=== PATIENT | female | born 1940 | race Caucasian/White ===

== ENCOUNTER → 2018-05-28 09:11 | Outpatient (CLI) | payer MEDICARE, OTHER, SELFPAY ==
[2018-05-28 09:45] LABS: Hemoglobin A1C% w Est Avg Glu 6.2 % (4.0-6.0)
[2018-05-28 09:54] LABS: Alanine Aminotransferase 29 IU/L (9-52); Albumin 4.7 g/dL (3.5-5.0); Albumin Globulin Ratio 1.6 (1.0-2.8); Alkaline Phosphatase 63 U/L (38-126); Aspartate Aminotransferase 25 IU/L (14-36); BUN Creatinine Ratio 29.1 (6-22); Bilirubin Total 0.5 mg/dL (0.2-1.3); Blood Urea Nitrogen 32 mg/dL (7-17); Calcium 10.1 mg/dL (8.4-10.2); Carbon Dioxide 31 mmol/L (22-32); Chloride 102 mmol/L (98-107); Estimated Glomerular Filt Rate 48.2 mL/min (>60); Globulin 2.9 g/dL (1.7-4.1); Glucose 110 mg/dL (80-110); HDL Cholesterol 79 mg/dL (40-60); HEMOLYSIS < 15 (0-50); Potassium 4.5 mmol/L (3.4-5.1); Sodium 142 mmol/L (137-145); Total Protein 7.6 g/dL (6.3-8.2); Triglycerides 118 mg/dL (35-150)
[2018-05-28 10:00] LABS: Cholesterol 324 mg/dL (140-199); LDL Cholesterol Calculated 221 mg/dL (<100)
[2018-05-28 10:21] LABS: Add Manual Diff / Slide Review NO; Basophils Percent Auto 1.1 % (0-2); Eosinophils Percent Auto 2.9 % (2-4); Hematocrit 38.4 % (36-46); Hemoglobin 13.1 g/dL (12.0-16.0); Lymphocytes Percent Auto 37.5 % (25-40); Mean Corpuscular HGB Conc 34.1 % (30-36); Mean Corpuscular Volume 91.1 fL (80-100); Monocytes Percent Auto 6.8 % (3-14); Neutrophils Absolute Auto 3400 /uL (3000-5900); Neutrophils Percent Auto 51.7 % (50-75); Platelet Count 286 X10^3/uL (150-400); Red Blood Cell Count 4.21 X10^6/uL (4.0-5.2); Red Cell Distribution Width 14.5 % (11.6-14.8); White Blood Cell Count 6.6 X10^3/uL (4.5-11.0)
== END ==
PROVIDERS: PCP Family Medicine; Visit Provider Registered Nurse
DX: Z00.00 Encounter for general adult medical examination without abnormal findings (principal); I10 Essential (primary) hypertension; E11.9 Type 2 diabetes mellitus without complications
CPT/HCPCS: 36415; 80053; 80061; 83036; 85025

== ENCOUNTER → 2018-09-01 10:07 | Outpatient (CLI) | payer MEDICARE, OTHER, SELFPAY ==
[2018-09-01 11:21] LABS: Uric Acid 8.1 mg/dL (2.5-6.2)
== END ==
PROVIDERS: Registered Nurse; PCP Family Medicine; Visit Provider Family Medicine
DX: M79.674 Pain in right toe(s) (principal); R30.0 Dysuria
CPT/HCPCS: 36415; 84550

== ENCOUNTER → 2018-12-09 08:18 | Outpatient (CLI) | payer MEDICARE, OTHER, SELFPAY ==
--- NOTE | 2018-12-09 08:20 | DI.MG.S_ITS ---
BILATERAL DIGITAL DIAGNOSTIC MAMMOGRAM 3D/2D: 12/09/2018 CLINICAL: Right breast mass. Comparison is made to exams dated: 08/10/2014 mammogram, 05/29/2011 mammogram, and 08/10/2009 mammogram - [facility]. The tissue of both breasts is predominantly fatty. There is skin thickening in the region of the previous lump in the right breast at 11 o'clock in the retroareolar region. No mammographic finding corresponds to this abnormality. Incidentally noted is a stable benign 9 mm oval mass with a circumscribed margin in the right breast at 12 o'clock anterior depth. This has been present, stable size and morphology since the most remote prior study and is benign. There are a diffuse large rodlike calcifications in the left breast anterior depth throughout the left breast. No other significant masses or calcifications are seen in either breast. IMPRESSION: INCOMPLETE: NEEDS ADDITIONAL IMAGING EVALUATION The skin thickening in the right breast at 11 o'clock in the retroareolar region needs additional evaluation with ultrasound which was performed following this exam. The ovoid right breast mass and calcifications in the left breast are benign. This exam was interpreted at Station ID: [id number]. NOTE: For mammograms, a report in lay terms will be sent to the patient. Approximately 15% of breast malignancies will not be visualized mammographically. In the management of a palpable breast mass, a negative mammogram must not discourage biopsy of a clinically suspicious lesion. Electronically Signed By: Marilia dan/:12/09/2018 16:44:20 ACR BI-RADS Category 0: Incomplete [id number]
--- NOTE | 2018-12-09 08:20 | DI.US.S_ITS ---
LIMITED ULTRASOUND OF RIGHT BREAST: 12/09/2018 CLINICAL: Previous lump with residual skin thickening. Comparison is made to exams dated: 12/09/2018 mammogram, 08/10/2014 mammogram, and 05/29/2011 mammogram - [facility]. Ultrasound of the right breast retroareolar region was performed. There is 3.3 cm x 2.6 cm x 0.5 cm smooth area of skin thickening without vascularity lateral to the nipple. No suspicious shadowing or underlying solid lesion. IMPRESSION: PROBABLY BENIGN Probably benign sequela of superficial infection/folliculitis. Follow up ultrasound in 3 months recommended to assess for resolution. Return to screening mammography recommended. This exam was interpreted at Station ID: [id number]. Electronically Signed By: Marilia dan/:12/09/2018 16:52:06 letter sent: Followup Recommended Ultrasound BI-RADS: 3 Probably benign
--- NOTE | 2018-12-09 08:20 | DI.ECHO.S_ITS ---
[facility] +---------+ : : [address] : [place] : : : : [id number] : : : : Phone: [phone]---------+ Echocardiogram Report + + :Name: HERIBERTO KATZ Study Date: 12/09/2018 Height: 60 in : :[facility] Exam Location: [facility] Weight: 140 lb : : Gender: Female BSA: 1.6 m2 : :: 1940 Age: 78 yrs BP: 120/70 mmHg: :Reason For Study: Murmur : :Ordering Physician: Dr. Ramirez : :Tang Performed By: Ginny Page : + + Interpretation Summary Left ventricular systolic function is normal without focal wall motion abnormalities with the ejection fraction visually estimated to be 65-70%. Left ventricular wall thickness is borderline increased but diastolic parameters suggest probable normal left ventricular diastolic function and normal filling pressures. The right ventricle is normal in size and function. The right ventricular systolic pressure is estimated to be at least 33 mmHg based on an estimated right atrial pressure of 8 mm Hg. Both atria are normal in size. There is mild tricuspid regurgitation but no other significant valvular heart disease. The ascending aorta is mildly enlarged. The patient was in normal sinus rhythm during the exam, generally 60-85 bpm but with occasional abrupt bradycardia to the low 40s, suggestive of possible sick sinus syndrome. Clinical correlation is recommended. Procedure: A two-dimensional transthoracic echocardiogram with color flow and Doppler was performed. The study quality was technically adequate. There is no prior echocardiogram noted for this patient. The patient was in normal sinus rhythm during the exam. Generally 60-85 bpm but with occasional abrupt bradycardia to the low 40s. Clinical correlation is recommended. Left Ventricle: The left ventricle is normal in size. Left ventricular wall thickness is borderline increased. Proximal septal thickening is noted. Left ventricular systolic function is normal without focal wall motion abnormalities. The ejection fraction is estimated to be 65-70%. Diastolic parameters suggest probable normal left ventricular diastolic function and normal filling pressures. Right Ventricle: The right ventricle is normal in size and function. Atria: Both atria are normal in size. There is no Doppler evidence for an interatrial shunt. Mitral Valve: There is mild mitral annular calcification. There is trace mitral regurgitation. Aortic Valve: The aortic valve is trileaflet. The aortic valve opens well. No aortic regurgitation is present. Tricuspid Valve: The tricuspid valve is normal in structure and function. There is mild tricuspid regurgitation. The right ventricular systolic pressure is estimated to be at least 33 mmHg based on an estimated right atrial pressure of 8 mm Hg. Pulmonic Valve: The pulmonic valve is not well visualized. There is trace pulmonic regurgitation. There is no other significant valvular heart disease. Great Vessels: The aortic root is normal size. The ascending aorta is mildly enlarged. The pulmonary artery is not well visualized, but is probably normal size. The IVC is dilated (diameter is greater than 2.1 cm) yet it collapses greater than 50% with a sniff. This suggests a right atrial pressure of 8 mm Hg. Pericardium/ Pleura There is a trivial pericardial effusion noted. There is no pleural effusion. MMode/2D Measurements & Calculations LVIDd: 4.2 cm LVOT diam: 1.7 cm LVIDs: 2.4 cm Ao root diam: 2.6 cm FS: 43.9 % asc Aorta Diam: 3.5 cm EPSS: 0.15 cm IVSd: 1.1 cm LVPWd: 0.78 cm LV heredia. diameter/BSA (cm/m^2): 2.6 LV sys. diameter/BSA (cm/m^2): 1.5 LA A2 area: 17.3 cm2 RA long axis: 4.3 cm LA A4 area: 15.8 cm2 RA area: 13.3 cm2 LA length (vol): 4.9 cm RA vol: 34.6 ml LA vol: 47.5 ml RA : 21.5 ml/m2 LA vol index: 29.6 ml/m2 IVC diam: 2.5 cm RVD1 (basal): 3.7 cm Doppler Measurements & Calculations Ao V2 max: 127.8 cm/sec LVOT Max Braden: 101.5 cm/sec Ao V2 mean: 92.3 cm/sec LV V1 max P.1 mmHg Ao max P.5 mmHg LV V1 VTI: 21.0 cm Ao mean P.8 mmHg EDWIN(I,D): 1.7 cm2 Ao V2 VTI: 28.7 cm EDWIN(V,D): 1.9 cm2 sev ratio: 0.73 EDWIN indexed to BSA (cm^2/m^2): 1.1 MV E max braden: 60.9 cm/sec TR max braden: 244.3 cm/sec MV A max braden: 95.2 cm/sec TR max P.0 mmHg MV E/A: 0.64 PA V2 max: 85.2 cm/sec Med Peak E' Braden: 3.8 cm/sec PA V2 mean: 59.3 cm/sec E/E' med: 16.1 PA mean P.6 mmHg Lat Peak E' Braden: 4.0 cm/sec PA Accel Time: 0.10 sec E/E' lat: 15.2 E/e' average: 15.7 MV dec time: 0.29 sec MV P1/2t: 85.3 msec MV P1/2t max braden: 62.1 cm/sec SV(LVOT): 49.9 ml MVA(P1/2t): 2.6 cm2 Reading Physician:JACQUI
== END ==
PROVIDERS: PCP Family Medicine; Visit Provider Family Medicine
DX: I07.1 Rheumatic tricuspid insufficiency (principal); R01.1 Cardiac murmur, unspecified; I77.89 Other specified disorders of arteries and arterioles; R92.8 Other abnormal and inconclusive findings on diagnostic imaging of breast; R92.1 Mammographic calcification found on diagnostic imaging of breast; N63.10 Unspecified lump in the right breast, unspecified quadrant
CPT/HCPCS: 76642; 77066; 93306; G0279

== ENCOUNTER → 2019-01-02 06:32 | Outpatient (CLI) | payer MEDICARE, OTHER, SELFPAY ==
[2019-01-02 10:11] LABS: Cholesterol 286 mg/dL (140-199); HDL Cholesterol 83 mg/dL (40-60); LDL Cholesterol Calculated 179 mg/dL (<100); Triglycerides 118 mg/dL (35-150)
== END ==
PROVIDERS: PCP Family Medicine; Visit Provider Family Medicine
DX: E78.5 Hyperlipidemia, unspecified (principal); I10 Essential (primary) hypertension
CPT/HCPCS: 36415; 80061

== ENCOUNTER → 2019-03-24 09:54 | Outpatient (CLI) | payer MEDICARE, OTHER, SELFPAY ==
--- NOTE | 2019-03-24 09:56 | DI.US.S_ITS ---
LIMITED ULTRASOUND OF RIGHT BREAST: 03/24/2019 CLINICAL: 3 month follow-up skin thickening. Comparison is made to exams dated: 12/09/2018 ultrasound, 12/09/2018 mammogram, 08/10/2014 mammogram, 05/29/2011 mammogram, and 08/10/2009 mammogram - [facility]. Real-time ultrasound of the right breast 9 o'clock, and retroareolar regions was performed on the area of interest. The skin thickening right breast at 9 o'clock is no longer seen. IMPRESSION: NEGATIVE There is no sonographic evidence of malignancy. Interval resolution of right 9:00 localized skin thickening. Return to annual mammogram screening schedule is recommended. This exam was interpreted at Station ID: [id number]. Electronically Signed By: Lam cruz/:03/24/2019 16:21:13 letter sent: Clinical Evaluation Ultrasound BI-RADS: 1 Negative
== END ==
PROVIDERS: PCP Family Medicine; Visit Provider Family Medicine
DX: R92.8 Other abnormal and inconclusive findings on diagnostic imaging of breast (principal)
CPT/HCPCS: 76642

== ENCOUNTER → 2019-07-03 09:14 | Outpatient (CLI) | payer MEDICARE, OTHER, SELFPAY | PROVIDERS: PCP Family Medicine; Visit Provider Physician Assistant | DX: T14.8XXA Other injury of unspecified body region, initial encounter (principal) | CPT/HCPCS: 87070; 87205 ==

== ENCOUNTER → 2019-09-22 07:20 | Outpatient (CLI) | payer MEDICARE, OTHER, SELFPAY ==
[2019-09-22 08:15] LABS: BUN Creatinine Ratio 30.9 (6-22); Blood Urea Nitrogen 34 mg/dL (7-17)
== END ==
PROVIDERS: PCP Family Medicine; Visit Provider Family Medicine
DX: Z01.812 Encounter for preprocedural laboratory examination (principal)
CPT/HCPCS: 82565; 84520

== ENCOUNTER → 2019-09-22 10:21 | Outpatient (CLI) | payer MEDICARE, OTHER, SELFPAY ==
--- NOTE | 2019-09-22 10:23 | DI.RAD.S_ITS ---
PROCEDURE: XR LUMBAR SPINE 2-3V INDICATIONS: transient nurological defficet with leg weekness TECHNIQUE: 2 views of the lumbar spine were acquired. COMPARISON: [facility], CR, L-SPINE 2-3 VIEWS, 06/16/2013, 12:04. [facility], CR, L-SPINE 2-3 VIEWS, 08/21/2011, 8:58. FINDINGS: Bones: 5 [id number] vertebrae are present. There is grade 1 anterolisthesis at L4-L5. Discectomy at L3-L4 and L4-L5. Laminectomy and posterior fusion at L3-S1. The left lottie-pedicular screws and fusion alisha appear intact. No vertebral body compression fractures. No suspicious bony lesions. There is severe degenerative disc disease at L1-L2 and L2-L3. Soft tissues: Overlying bowel gas pattern is normal. No suspicious soft tissue calcifications. IMPRESSION: 1. Postsurgical changes as described. 2. Severe degenerative disc disease at L1-L2 and L2-L3. Dictated by: Katarina Mascorro M.D. on 09/22/2019 at 17:31 Approved by: Katarina Mascorro M.D. on 09/22/2019 at 17:35
--- NOTE | 2019-09-22 10:29 | DI.CT.S_ITS ---
PROCEDURE: CT HEAD/BRAIN WO/W CON INDICATIONS: transient nurological defficet with leg weekness TECHNIQUE: 4.5 mm thick angled axial sections acquired from the foramen magnum to the vertex both before and after the administration of intravenous contrast, with coronal and sagittal reformats. For radiation dose reduction, the following was used: automated exposure control, adjustment of mA and/or kV according to patient size. COMPARISON: None. FINDINGS: Image quality: Excellent. CSF spaces: Basal cisterns are patent. No extra-axial fluid collections. Ventricles are symmetric in size and shape. Brain: No midline shift. No intracranial bleeds or masses. No abnormal intracranial enhancement. There is mild cerebral volume loss for age. There is mild periventricular white matter chronic small vessel ischemic change. There is intracranial internal carotid artery atherosclerosis. Skull and face: Calvarium and visualized facial bones appear intact, without suspicious lesions. Sinuses: Visualized sinuses and mastoids are clear. IMPRESSION: 1. No acute intracranial abnormalities. 2. Cerebral volume loss and chronic microvascular ischemic changes. Dictated by: Katarina Mascorro M.D. on 09/22/2019 at 11:10 Approved by: Katarina Mascorro M.D. on 09/22/2019 at 11:13
== END ==
PROVIDERS: PCP Family Medicine; Visit Provider Family Medicine
DX: Z01.812 Encounter for preprocedural laboratory examination (principal); R29.818 Other symptoms and signs involving the nervous system; M51.36 Other intervertebral disc degeneration, lumbar region; M47.816 Spondylosis without myelopathy or radiculopathy, lumbar region; Z98.1 Arthrodesis status
CPT/HCPCS: 70470; 72100; 82565; 84520; Q9967

== ENCOUNTER → 2019-10-01 07:10 | Outpatient (CLI) | payer MEDICARE, OTHER, SELFPAY ==
[2019-10-01 08:17] LABS: Add Manual Diff / Slide Review NO; Basophils Absolute Auto 100 /uL (0-100); Basophils Percent Auto 1.2 % (0-2); Eosinophils Absolute Auto 400 /uL (0-450); Eosinophils Percent Auto 6.5 % (2-4); Hematocrit 37.7 % (36-46); Hemoglobin 13.3 g/dL (12.0-16.0); Lymphocytes Absolute Auto 2200 /uL (1100-4500); Lymphocytes Percent Auto 36.1 % (25-40); Mean Corpuscular HGB Conc 35.3 % (30-36); Mean Corpuscular Hemoglobin 32.1 PG (26-34); Mean Corpuscular Volume 91.1 fL (80-100); Monocytes Absolute Auto 500 /uL (0-900); Monocytes Percent Auto 8.5 % (3-14); Neutrophils Absolute Auto 2900 /uL (1500-7000); Neutrophils Percent Auto 47.7 % (50-75); Platelet Count 278 X10^3/uL (150-400); Red Blood Cell Count 4.14 X10^6/uL (4.0-5.2); Red Cell Distribution Width 14.1 % (11.6-14.8)
[2019-10-01 08:25] LABS: Alanine Aminotransferase 18 IU/L (<35); Albumin 4.5 g/dL (3.5-5.0); Albumin Globulin Ratio 1.7 (1.0-2.8); Alkaline Phosphatase 66 U/L (38-126); Aspartate Aminotransferase 21 IU/L (14-36); BUN Creatinine Ratio 27.7 (6-22); Bilirubin Total 0.5 mg/dL (0.2-1.3); Blood Urea Nitrogen 36 mg/dL (7-17); Calcium 9.7 mg/dL (8.4-10.2); Carbon Dioxide 28 mmol/L (22-32); Chloride 100 mmol/L (98-107); Cholesterol 293 mg/dL (140-199); Estimated Glomerular Filt Rate 39.6 mL/min (>60); Globulin 2.7 g/dL (1.7-4.1); Glucose 125 mg/dL (80-110); HDL Cholesterol 56 mg/dL (40-60); HEMOLYSIS < 15 (0-50); Hemoglobin A1C% w Est Avg Glu 5.8 % (4.0-6.0); LDL Cholesterol Calculated 186 mg/dL (<100); Potassium 4.5 mmol/L (3.4-5.1); Sodium 138 mmol/L (137-145); Total Protein 7.2 g/dL (6.3-8.2); Triglycerides 255 mg/dL (35-150)
[2019-10-01 08:51] LABS: TSH w/ Reflex to FT4 4.96 uIU/mL (0.47-4.68)
[2019-10-01 09:10] LABS: Vitamin B12 466 pg/mL (239-931)
[2019-10-01 09:32] LABS: Free T4, Direct Thyroxine 0.86 ng/dL (0.78-2.19)
== END ==
PROVIDERS: PCP Family Medicine; Visit Provider Family Medicine
DX: E78.5 Hyperlipidemia, unspecified (principal); I10 Essential (primary) hypertension; R73.01 Impaired fasting glucose
CPT/HCPCS: 36415; 80053; 80061; 82607; 83036; 84439; 84443; 85025

== ENCOUNTER → 2020-05-04 15:01 | Outpatient (CLI) | payer MEDICARE, OTHER, SELFPAY | PROVIDERS: PCP Family Medicine; Visit Provider Family Medicine | DX: K52.9 Noninfective gastroenteritis and colitis, unspecified (principal) | CPT/HCPCS: 87045; 87177; 87899 ==

== ENCOUNTER → 2020-05-05 07:28 | Outpatient (CLI) | payer MEDICARE, OTHER, SELFPAY ==
[2020-05-05 08:25] LABS: Add Manual Diff / Slide Review NO; Basophils Absolute Auto 100 /uL (0-100); Basophils Percent Auto 0.9 % (0-2); Eosinophils Absolute Auto 300 /uL (0-450); Eosinophils Percent Auto 2.7 % (2-4); Hematocrit 37.3 % (36-46); Hemoglobin 12.7 g/dL (12.0-16.0); Lymphocytes Absolute Auto 1700 /uL (1100-4500); Lymphocytes Percent Auto 18.6 % (25-40); Mean Corpuscular HGB Conc 33.9 % (30-36); Mean Corpuscular Hemoglobin 31.8 PG (26-34); Mean Corpuscular Volume 93.8 fL (80-100); Monocytes Absolute Auto 700 /uL (0-900); Neutrophils Absolute Auto 6600 /uL (1500-7000); Neutrophils Percent Auto 70.8 % (50-75); Platelet Count 272 X10^3/uL (150-400); Red Blood Cell Count 3.98 X10^6/uL (4.0-5.2); Red Cell Distribution Width 13.7 % (11.6-14.8); White Blood Cell Count 9.4 X10^3/uL (4.5-11.0)
[2020-05-05 08:34] LABS: Alanine Aminotransferase 19 IU/L (<35); Albumin 4.6 g/dL (3.5-5.0); Albumin Globulin Ratio 1.5 (1.0-2.8); Alkaline Phosphatase 70 U/L (38-126); Aspartate Aminotransferase 23 IU/L (14-36); BUN Creatinine Ratio 29.8 (6-22); Bilirubin Total 0.6 mg/dL (0.2-1.3); Blood Urea Nitrogen 48 mg/dL (7-17); Calcium 9.7 mg/dL (8.4-10.2); Carbon Dioxide 26 mmol/L (22-32); Chloride 100 mmol/L (98-107); Cholesterol 278 mg/dL (140-199); Estimated Glomerular Filt Rate 30.9 mL/min (>60); Globulin 3.1 g/dL (1.7-4.1); Glucose 125 mg/dL (80-110); HDL Cholesterol 59 mg/dL (40-60); HEMOLYSIS < 15 (0-50); LDL Cholesterol Calculated 177 mg/dL (<100); Potassium 4.7 mmol/L (3.4-5.1); Sodium 136 mmol/L (137-145); Total Protein 7.7 g/dL (6.3-8.2); Triglycerides 212 mg/dL (35-150)
[2020-05-05 09:10] LABS: TSH w/ Reflex to FT4 2.14 uIU/mL (0.47-4.68)
[2020-05-05 09:35] LABS: Clostridium Difficile Tox PCR Negative for C. diff
[2020-05-06 18:36] LABS: Tissue Transglutaminase IgA <2 U/mL (0-3); Tissue Transglutaminase IgG 5 U/mL (0-5)
== END ==
PROVIDERS: PCP Family Medicine; Referring Provider Family Medicine; Visit Provider Family Medicine
DX: K52.9 Noninfective gastroenteritis and colitis, unspecified (principal)
CPT/HCPCS: 36415; 80053; 80061; 83516; 84443; 85025; 87493

== ENCOUNTER → 2020-08-12 07:12 | Outpatient (CLI) | payer MEDICARE, OTHER, SELFPAY ==
[2020-08-12 08:31] LABS: Hemoglobin A1C% w Est Avg Glu 6.4 % (4.0-6.0)
[2020-08-12 08:39] LABS: BUN Creatinine Ratio 29.8 (6-22); Blood Urea Nitrogen 39 mg/dL (7-17); Calcium 9.2 mg/dL (8.4-10.2); Carbon Dioxide 29 mmol/L (22-32); Chloride 100 mmol/L (98-107); Estimated Glomerular Filt Rate 39.2 mL/min (>60); Glucose 126 mg/dL (80-110); HEMOLYSIS < 15 (0-50); Potassium 4.4 mmol/L (3.4-5.1); Sodium 136 mmol/L (137-145)
== END ==
PROVIDERS: PCP Family Medicine; Referring Provider Family Medicine; Visit Provider Family Medicine
DX: N18.9 Chronic kidney disease, unspecified (principal); E11.9 Type 2 diabetes mellitus without complications
CPT/HCPCS: 36415; 80048; 83036

== ENCOUNTER → 2020-09-05 14:27 | Outpatient (CLI) | payer MEDICARE, OTHER, SELFPAY ==
[2020-09-05 16:49] LABS: Add Manual Diff / Slide Review NO; Basophils Absolute Auto 100 /uL (0-100); Basophils Percent Auto 1.1 % (0-2); Eosinophils Absolute Auto 400 /uL (0-450); Eosinophils Percent Auto 4.9 % (2-4); Hematocrit 39.8 % (36-46); Hemoglobin 13.1 g/dL (12.0-16.0); Lymphocytes Absolute Auto 2500 /uL (1100-4500); Lymphocytes Percent Auto 27.4 % (25-40); Mean Corpuscular HGB Conc 32.9 % (30-36); Mean Corpuscular Volume 94.4 fL (80-100); Monocytes Absolute Auto 600 /uL (0-900); Monocytes Percent Auto 7.2 % (3-14); Neutrophils Absolute Auto 5300 /uL (1500-7000); Neutrophils Percent Auto 59.4 % (50-75); Platelet Count 310 X10^3/uL (150-400); Red Blood Cell Count 4.22 X10^6/uL (4.0-5.2); Red Cell Distribution Width 14.2 % (11.6-14.8)
[2020-09-05 17:07] LABS: Hemoglobin A1C% w Est Avg Glu 6.4 % (4.0-6.0)
[2020-09-05 17:26] LABS: BUN Creatinine Ratio 31.9 (6-22); Blood Urea Nitrogen 38 mg/dL (7-17); Calcium 9.7 mg/dL (8.4-10.2); Carbon Dioxide 31 mmol/L (22-32); Chloride 99 mmol/L (98-107); Estimated Glomerular Filt Rate 43.8 mL/min (>60); Glucose 105 mg/dL (80-110); HEMOLYSIS < 15 (0-50); Potassium 4.3 mmol/L (3.4-5.1); Sodium 135 mmol/L (137-145)
[2020-09-05 17:42] LABS: Free T4, Direct Thyroxine 1.06 ng/dL (0.78-2.19)
== END ==
PROVIDERS: PCP Family Medicine; Referring Provider Family Medicine; Visit Provider Family Medicine
DX: I10 Essential (primary) hypertension (principal); E78.5 Hyperlipidemia, unspecified; R94.6 Abnormal results of thyroid function studies
CPT/HCPCS: 36415; 80048; 83036; 84439; 84443; 85025

== ENCOUNTER 2020-09-11 15:47 | Emergency (ER) | payer MEDICARE, OTHER, SELFPAY ==
[2020-09-11] VITALS (7 sets, daily range): BP systolic 148–169; BP diastolic 70–80; PULSE 65–96; RESP 15–28; TEMP 36.7; O2SAT 90–98; BMI 28.5
--- NOTE | 2020-09-11 15:47 | DI.RAD.S_ITS ---
PROCEDURE: XR CHEST 1V INDICATIONS: chest pain TECHNIQUE: One view of the chest was acquired. COMPARISON: None. FINDINGS: Surgical changes and devices: None. Lungs and pleura: Mild patchy airspace opacity in the right mid lung field. No pleural effusions or pneumothorax. Mediastinum: Mediastinal contours appear normal. Heart size is normal. Bones and chest wall: No suspicious bony lesions. Left shoulder arthroplasty. Overlying soft tissues appear unremarkable. IMPRESSION: Mild airspace opacity in the right mid lung field. This could be due to pneumonia or atelectasis/scarring. Dictated by: Jaylon Herron M.D. on 09/11/2020 at 15:31 Approved by: Jaylon Herron M.D. on 09/11/2020 at 15:33
--- NOTE | 2020-09-11 15:55 | DI.CT.S_ITS ---
PROCEDURE: CT HEAD/BRAIN WO CON INDICATIONS: dizzy TECHNIQUE: Noncontrast 4.5 mm thick angled axial sections acquired from the foramen magnum to the vertex, with coronal and sagittal reformats. For radiation dose reduction, the following was used: automated exposure control, adjustment of mA and/or kV according to patient size. COMPARISON: CT, SINUS SCREEN, 12/02/2007, 14:57. [facility], CT, CT HEAD/BRAIN WO/W CON, 09/22/2019, 10:39. FINDINGS: Image quality: Excellent. CSF spaces: Basal cisterns are patent. No extra-axial fluid collections. Ventricles are normal in size and shape. Brain: No midline shift. No intracranial masses or hemorrhage. No area of hypodensity in a large vascular distribution to suggest acute infarction. Periventricular hypodensity consistent with chronic microvascular ischemic change. Age-related parenchymal loss. Skull and face: Calvarium and visualized facial bones are intact, without suspicious lesions. Sinuses: There is complete opacification of the visualized portions of the left maxillary sinus. There is faint internal calcification. There is outward bowing inner maxillary wall. There also appears to be a bony remodeling/hyperostosis. The apex of this abnormality is partially visualized on the CT from 2019 with now complete opacification. Left maxillary sinus disease is seen dating back to 2007. Other paranasal sinuses appear clear. The mastoids are clear. IMPRESSION: No acute intracranial abnormality. Severe chronic left maxillary sinus disease. Dictated by: Jaylon Herron M.D. on 09/11/2020 at 15:25 Approved by: Jaylon Herron M.D. on 09/11/2020 at 15:31
[2020-09-11 15:56] LABS: Add Manual Diff / Slide Review NO; Basophils Absolute Auto 0 /uL (0-100); Basophils Percent Auto 0.2 % (0-2); Eosinophils Absolute Auto 400 /uL (0-450); Eosinophils Percent Auto 4.4 % (2-4); Hematocrit 38.3 % (36-46); Lymphocytes Absolute Auto 3000 /uL (1100-4500); Lymphocytes Percent Auto 30.4 % (25-40); Mean Corpuscular Hemoglobin 31.5 PG (26-34); Mean Corpuscular Volume 92.6 fL (80-100); Monocytes Absolute Auto 800 /uL (0-900); Neutrophils Absolute Auto 5700 /uL (1500-7000); Platelet Count 284 X10^3/uL (150-400); Red Blood Cell Count 4.13 X10^6/uL (4.0-5.2); Red Cell Distribution Width 13.7 % (11.6-14.8)
--- NOTE | 2020-09-11 15:59 | ED.CHESTPAIN ---
HPI - Chest Pain General Chief Complaint: Chest Pain Stated Complaint: Chest Pain Time Seen by Provider: 09/11/20 15:55 Source: patient and EMS Mode of arrival: EMS Limitations: no limitations History of Present Illness HPI narrative: Patient is a 80-year-old female with history of chronic renal failure hypertension, presenting with dizziness and chest pain. She has actually had some dizziness and vertigo on going for almost 2 weeks. She has actually seen evaluated by her primary care provider who has approved a outpatient MRI scheduled in 2 days. She thought today that she would try and get out and exercise and walk however she describes her walking as ?shuffling.She started walking she immediately did not feel well dizzy lightheaded chest pain palpitations and 911 was called. She is now here for evaluation. She denies any fever or chills she is trying to drink water. She has low-grade nausea but no active vomiting. The vertigo and dizziness seems to get worse with movement. Related Data Previous Rx's Medication Instructions Recorded temazepam 15 mg capsule 15 mg PO BEDTIME PRN #30 cap 10/19/19 lisinopril 20 mg tablet 20 mg PO QDAY #90 tab 02/01/20 hydrochlorothiazide 25 mg tablet 25 mg PO QDAY #90 tab 07/29/20 meclizine 25 mg PO TID PRN #10 tab 09/11/20 ondansetron 4 mg PO Q8H PRN #10 tab 09/11/20 Allergies Allergy/AdvReac Type Severity Reaction Status Date / Time Tq[place]uk-Sab-Xuc Reductase Allergy Severe 'SWOLLEN Verified 09/11/20 16:01 Inhibitor LIPS,TONGUE,AIRWAY INVOLVED codeine [CODEINE] Allergy Mild N&V Verified 09/11/20 15:52 fentanyl [FENTANYL] Allergy Mild N&V Verified 09/11/20 15:52 naproxen [NAPROXEN] Allergy Mild HEADACHE Verified 09/11/20 15:52 Sulfa (Sulfonamide Allergy Mild HIVES Verified 09/11/20 15:52 Antibiotics) [SULFA (SULFONAMIDE ANTIBIOTICS)] BETA [facility]LEY EYE GTTS Allergy Mild AFFECTED Uncoded 09/11/20 15:52 CLIMBING ABILITY Review of Systems Review of Systems ROS Unobtainable: All systems reviewed & are unremarkable except as noted in HPI and below Constitutional Constitutional: Denies chills, Denies fever(s), Denies frequent falls, Denies headache(s), Denies lethargy and Denies weakness ENT Ears, Nose, Mouth, and Throat: Reports vertigo, Reports dizziness and Denies headache(s) Cardiovascular Cardiovascular: Reports as per HPI, Reports chest pain, Denies syncope, Denies irregular heart rhythm, Reports lightheadedness, Denies palpitations, Denies dyspnea, Denies dyspnea on exertion and Denies orthopnea Respiratory Respiratory: Denies cough, Denies dyspnea, Denies dyspnea on exertion and Denies wheezing Gastrointestinal Gastrointestinal: Denies abdominal pain and Reports nausea Musculoskeletal Musculoskeletal: Denies myalgias, Denies joint swelling and Denies numbness Integumentary/Breasts Skin/Breast: Denies pruritus, Denies erythema, Denies rash and Denies wounds Neurologic Neurologic: Reports as per HPI, Reports vertigo, Reports dizziness, Denies syncope, Denies frequent falls, Denies headache(s), Denies localized weakness, Denies memory loss, Denies numbness and Denies weakness Psychiatric Psychiatric: Denies memory loss Endocrine Endocrine: Denies palpitations Allergic/Immunologic Allergic/Immunologic: Denies wheezing Patient History Medical History (Updated 09/11/20 @ 17:38 by Mariah Vega DO) Actinic keratosis Bilateral cataracts (2012) Chicken pox CTS (carpal tunnel syndrome) (1991) Glaucoma (1984) Herpes Hyperlipidemia (2001) Hypertension (1999) Insulin resistance Lumbar spine pain Measles Melanoma of thigh (1997) MRSA infection (2002) Mumps Osteoarthritis Recurrent sinusitis Right shoulder pain RLS (restless legs syndrome) (1994) Rubella Skin cancer Tuberculosis Surgical History Anesthesia History of shoulder surgery (2004) S/P ACL reconstruction (2003) S/P total abdominal hysterectomy and bilateral salpingo-oophorectomy (1967) Status post laminectomy (2012) Status post laser cataract surgery of both eyes (2012) Family History Brother Age: 82 Essential hypertension High cholesterol Father Essential hypertension Parkinson's disease Mother Essential hypertension Osteoporosis Congestive heart failure Social History Smoking Status: Never smoker alcohol intake: current substance use type: does not use Smoking Status: Never smoker alcohol intake frequency: 0-2 drinks per day Substance Use Type: does not use Exam Initial Vital Signs Initial Vital Signs: Vital Signs Temperature 98.0 F 09/11/20 15:47 Pulse Rate 96 H 09/11/20 15:47 Respiratory Rate 15 09/11/20 15:47 Blood Pressure 169/80 H 09/11/20 15:47 Pulse Oximetry 98 09/11/20 15:47 GENERAL: Alert pleasant well-appearing 80-year-old female no acute distress and in no acute distress. HEENT: Head atraumatic,EOMI, pupils reactive, face symmetric, moist mucous membranes CARDIOVASCULAR: Regular rate and rhythm without murmurs, rubs or gallops. RESPIRATORY: Breath sounds equal bilaterally, no wheezes rales or rhonchi. ABDOMEN: Soft, nontender. Normoactive bowel sounds all 4 quadrants. No guarding or rebound. EXTREMITIES: Normal range of motion, no clubbing or edema. Neurovascularly intact NEUROLOGICAL: Alert and oriented x4.Normal gait and speech. Cranial nerves II through XII grossly intact. Good thtzra-kc-exyj, good fkos-or-vxra, strength equal bilaterally, no dysarthria or aphasia, sensation in tact to soft touch bilaterally, no visual changes, no facial droop SKIN: Warm, dry, no laceration, no petechiae, no rashes or lesions. Scores NIH Stroke Scale Level of Conciousness: Alert, keenly responsive Ask month/age: Answers both questions correctly. Open/close eyes, close hand: Performs both tasks correctly Best gaze horizontal: Normal Visual phipps: No visual loss Facial palsy: Normal symetrical movement Left arm drift: No drift for full 10 sec Right arm drift: No drift for full 10 sec Left leg drift: No drift for full 5 sec Right leg drift: No drift for full 5 sec Limb ataxia: Absent Sensory on face/arms/legs: Normal, no sensory loss Best language: No aphasia, normal Dysarthria: Normal Extinction or inattention: No abnormality Total NIH Stroke scale score: 0 Course Orders Ordered: ED Orders 09/11/20 15:45 Complete Blood Count AUTO DIFF Stat Comprehensive Metabolic Panel Stat Lipase Stat Partial Thromboplastin Time Stat Prothrombin Time INR Stat Troponin & CK Cardiac Panel Stat 09/11/20 15:47 XR chest 1V Stat EKG-12 Lead Stat 09/11/20 15:55 CT head/brain wo con Stat Discontinued Medications Meclizine HCl (Meclizine Hcl 12.5 Mg Tablet) 25 mg PO NOW ONE Stop: 09/11/20 15:57 Last Admin: 09/11/20 16:01 Dose: 25 mg Documented by: CHELA Meclizine HCl (Meclizine Hcl 12.5 Mg Tablet) 25 mg PO NOW ONE Stop: 09/11/20 17:42 Last Admin: 09/11/20 17:51 Dose: 25 mg Documented by: CHELA Ondansetron HCl (Ondansetron 4 Mg/2 Ml Inj) 4 mg IV NOW ONE Stop: 09/11/20 15:57 Last Admin: 09/11/20 16:00 Dose: 4 mg Documented by: CHELA Ondansetron HCl (Ondansetron 4 Mg Odt Prepack) 1 bottle MISC SEEINSTR ONE Stop: 09/11/20 17:42 Last Admin: 09/11/20 17:51 Dose: 1 bottle Documented by: CHELA Vital Signs Vital signs: Vital Signs - 8 hr 09/11/20 15:47 09/11/20 16:00 09/11/20 16:21 Temperature 98.0 F Pulse Rate 96 H 70 68 Respiratory Rate 15 17 28 H Blood Pressure 169/80 H 153/70 H Pulse Oximetry 98 97 98 09/11/20 16:30 09/11/20 16:31 09/11/20 17:00 Temperature Pulse Rate 67 69 67 Respiratory Rate 16 25 H 17 Blood Pressure 148/75 H Pulse Oximetry 96 96 91 09/11/20 17:01 Temperature Pulse Rate 65 Respiratory Rate 19 Blood Pressure 165/71 H Pulse Oximetry 90 L MDM - Chest Pain Lab Data Attestation: I reviewed the patient's lab results. Result diagrams: 09/11/20 15:45 09/11/20 15:45 Labs: Lab Results 09/11/20 09/11/20 09/11/20 Range/Units 15:45 15:45 15:45 WBC 10.0 (4.5-11.0) X10^3/uL RBC 4.13 (4.0-5.2) X10^6/uL Hgb 13.0 (12.0-16.0) g/dL Hct 38.3 (36-46) % MCV 92.6 (80-100) fL MCH 31.5 (26-34) PG MCHC 34.0 (30-36) % RDW 13.7 (11.6-14.8) % Plt Count 284 (150-400) X10^3/uL Neut % (Auto) 57.0 (50-75) % Lymph % (Auto) 30.4 (25-40) % [place] % (Auto) 8.0 (3-14) % Eos % (Auto) 4.4 H (2-4) % Baso % (Auto) 0.2 (0-2) % Neut # (Auto) 5700 (6018-3713) /uL Lymph # (Auto) 3000 (7070-8561) /uL [place] # (Auto) 800 (0-900) /uL Eos # (Auto) 400 (0-450) /uL Baso # (Auto) 0 (0-100) /uL PT 11.3 (10.1-12.7) SECONDS INR 1.0 (0.9-1.3) APTT 29 (26.4-36.2) SECONDS Sodium 135 L (137-145) mmol/L Potassium 3.7 (3.4-5.1) mmol/L Chloride 97 L (98-107) mmol/L Carbon Dioxide 30 (22-32) mmol/L BUN 34 H (7-17) mg/dL Creatinine 1.11 H (0.52-1.04) mg/dL Estimated GFR 47.4 L (>60) mL/min BUN/Creatinine Ratio 30.6 H (6-22) Glucose 145 H (80-110) mg/dL Calcium 10.2 (8.4-10.2) mg/dL Total Bilirubin 0.3 (0.2-1.3) mg/dL AST 22 (14-36) IU/L ALT 17 (<35) IU/L Alkaline Phosphatase 83 (38-126) U/L Total Creatine Kinase 37 (30-135) U/L CK-MB (CK-2) TNP CK-MB (CK-2) Rel Index TNP Troponin I < 0.012 (0.01-0.034) ng/mL Total Protein 7.7 (6.3-8.2) g/dL Albumin 4.4 (3.5-5.0) g/dL Globulin 3.3 (1.7-4.1) g/dL Albumin/Globulin Ratio 1.3 (1.0-2.8) Lipase 117 (23-300) U/L Imaging Data CT scan - head: Radiologist's Impression: PROCEDURE: CT HEAD/BRAIN WO CON INDICATIONS: dizzy TECHNIQUE: Noncontrast 4.5 mm thick angled axial sections acquired from the foramen magnum to the vertex, with coronal and sagittal reformats. For radiation dose reduction, the following was used: automated exposure control, adjustment of mA and/or kV according to patient size. COMPARISON: CT, SINUS SCREEN, 12/02/2007, 14:57. [facility], CT, CT HEAD/BRAIN WO/W CON, 09/22/2019, 10:39. FINDINGS: Image quality: Excellent. CSF spaces: Basal cisterns are patent. No extra-axial fluid collections. Ventricles are normal in size and shape. Brain: No midline shift. No intracranial masses or hemorrhage. No area of hypodensity in a large vascular distribution to suggest acute infarction. Periventricular hypodensity consistent with chronic microvascular ischemic change. Age-related parenchymal loss. Skull and face: Calvarium and visualized facial bones are intact, without suspicious lesions. Sinuses: There is complete opacification of the visualized portions of the left maxillary sinus. There is faint internal calcification. There is outward bowing inner maxillary wall. There also appears to be a bony remodeling/hyperostosis. The apex of this abnormality is partially visualized on the CT from 2019 with now complete opacification. Left maxillary sinus disease is seen dating back to 2007. Other paranasal sinuses appear clear. The mastoids are clear. IMPRESSION: No acute intracranial abnormality. Severe chronic left maxillary sinus disease. Dictated by: Jaylon Herron M.D. on 09/11/2020 at 15:25 Approved by: Jaylon Herron M.D. on 09/11/2020 at 15:31 Chest x-ray: Radiologist's Impression: PROCEDURE: XR CHEST 1V INDICATIONS: chest pain TECHNIQUE: One view of the chest was acquired. COMPARISON: None. FINDINGS: Surgical changes and devices: None. Lungs and pleura: Mild patchy airspace opacity in the right mid lung field. No pleural effusions or pneumothorax. Mediastinum: Mediastinal contours appear normal. Heart size is normal. Bones and chest wall: No suspicious bony lesions. Left shoulder arthroplasty. Overlying soft tissues appear unremarkable. IMPRESSION: Mild airspace opacity in the right mid lung field. This could be due to pneumonia or atelectasis/scarring. Dictated by: Jaylon Herron M.D. on 09/11/2020 at 15:31 ECG Data Attestation: I personally reviewed and interpreted this ECG as follows: Prior ECG tracings: available for review Interpretation: Normal sinus rhythm rate 65 year intervals is 168 QRS [address] changes tomorrow to previous EKG MDM Narrative Medical decision making narrative: Patient is overall feeling much better after meclizine and Zofran. She ambulated in the ED without any difficulty. Symptoms are consistent with vertigo it seems as though she does have a history of vertigo. This time initial head CT is negative she has an outpatient MRI scheduled in 2 days I think that this is appropriate. She is given some medication to take at home mental pharmacy opens. Discharge Plan Departure Patient Disposition: Home Clinical Impression: Vertigo Instructions: DI for Vertigo Activity Restrictions/Additional Instructions: *You have been diagnosed with vertigo *What to do: At this time appears to have vertigo. You have an MRI scheduled in 2 days which I recommend you continue to get. Increase activity only as tolerated recommend going very slow. *Continue to take medications as directed Meclizine 25 mg every 8 hours if needed for dizziness Zofran 4 mg every 8 hours if needed for nausea or vomiting *Follow up with your primary care provider in 2-3 days *Return to ER if you should have worsening dizziness, lightheadedness, chest pain falling confusion or any new, worsening or concerning symptoms Prescriptions: New meclizine 25 mg tablet 25 mg PO TID PRN (Reason: dizziness) Qty: 10 RF: 0 ondansetron 4 mg tablet,disintegrating 4 mg PO Q8H PRN (Reason: nausea and vomiting) Qty: 10 RF: 0 No Action temazepam 15 mg capsule 15 mg PO BEDTIME PRN (Reason: sleep) Qty: 30 RF: 1 lisinopril 20 mg tablet 20 mg PO QDAY Qty: 90 RF: 3 hydrochlorothiazide 25 mg tablet 25 mg PO QDAY Qty: 90 RF: 3 Referrals: James Beckwith MD [Primary Care Provider] -
[2020-09-11] MEDS: ONDANSETRON 4 MG/2 ML INJ IV (16:00)
[2020-09-11] MEDS: MECLIZINE HCL 12.5 MG TABLET 25 MG PO ×2 (16:01→17:51)
[2020-09-11 16:04] LABS: Prothrombin Time 11.3 SECONDS (10.1-12.7)
[2020-09-11 16:07] LABS: PTT Partial Thromboplastin Tim 29 SECONDS (26.4-36.2)
[2020-09-11 16:08] LABS: Alanine Aminotransferase 17 IU/L (<35); Albumin 4.4 g/dL (3.5-5.0); Albumin Globulin Ratio 1.3 (1.0-2.8); Alkaline Phosphatase 83 U/L (38-126); Aspartate Aminotransferase 22 IU/L (14-36); BUN Creatinine Ratio 30.6 (6-22); Bilirubin Total 0.3 mg/dL (0.2-1.3); Blood Urea Nitrogen 34 mg/dL (7-17); Calcium 10.2 mg/dL (8.4-10.2); Carbon Dioxide 30 mmol/L (22-32); Chloride 97 mmol/L (98-107); Creatine Kinase 37 U/L (30-135); Estimated Glomerular Filt Rate 47.4 mL/min (>60); Globulin 3.3 g/dL (1.7-4.1); Glucose 145 mg/dL (80-110); HEMOLYSIS < 15 (0-50); Lipase 117 U/L (23-300); Potassium 3.7 mmol/L (3.4-5.1); Sodium 135 mmol/L (137-145); Total Protein 7.7 g/dL (6.3-8.2)
[2020-09-11 16:20] LABS: Troponin I < 0.012 ng/mL (0.01-0.034)
[2020-09-11] MEDS: ONDANSETRON 4 MG ODT PREPACK 1 BOTTLE MISC (17:51)
== END 2020-09-11 18:00 | disposition home or self-care (01) ==
PROVIDERS: Emergency Provider Emergency Medicine; PCP Family Medicine
DX: R42 Dizziness and giddiness (principal); R07.9 Chest pain, unspecified; I12.9 Hypertensive chronic kidney disease with stage 1 through stage 4 chronic kidney disease, or unspecified chronic kidney disease; N18.9 Chronic kidney disease, unspecified
CPT/HCPCS: 36415; 70450; 71045; 80053; 82550; 83690; 84484; 85025; 85610; 85730; 93005; 96374; 99283; 99284; J2405

== ENCOUNTER → 2020-09-13 09:14 | Outpatient (CLI) | payer MEDICARE, OTHER, SELFPAY ==
--- NOTE | 2020-09-13 09:17 | DI.MRI.S_ITS ---
PROCEDURE: MR STROKE Pre- and post-contrast brain MRI, non-contrast brain MR angiogram, pre- and postcontrast neck MR angiogram INDICATIONS: loss of balance visual changes and concern for CVA Basal TECHNIQUE: Brain: Noncontrast axial T1 spin echo, axial T2 fast spin echo, sagittal and axial FLAIR, coronal T2 fast spin echo, axial gradient echo, axial diffusion and ADC through the brain. After the administration of contrast, axial 3D VIBE of the cranial vasculature and brain. Brain MRA: Non-contrast 3-D time of flight MR angiogram, with multiple jkvczxo-ajbwisjai-noveewyznr (MIP) reformats performed. Neck MRA: Axial and sagittal TruFISP through the neck. Coronal dynamic MR angiogram during administration of contrast in the arterial and venous phases, with 3-dimenstional umpubqj-hjugbifeb-whwhspcpvh (MIP) reformats constructed from subtraction images. COMPARISON: [facility], CT, CT HEAD/BRAIN WO CON, 09/11/2020, 15:56. [facility], CT, CT HEAD/BRAIN WO/W CON, 09/22/2019, 10:39. FINDINGS: Image quality: Excellent. BRAIN: The ventricular system and cortical sulci demonstrate atrophy, consistent for the patient's stated age. There are areas of increased T2/FLAIR signal intensity within the periventricular and subcortical white matter. There is no acute intra-or extra axial fluid collection. No acute hemorrhage, mass lesion or midline shift. Brainstem is unremarkable. There are no areas of restricted diffusion. Globes are symmetrical. Sinuses demonstrate near complete opacification of the left maxillary sinus. Osseous structures are intact. BRAIN MR ANGIOGRAM: Anterior circulation: Intracranial internal carotid arteries are normal in size and enhancement. The flow within the paired anterior cerebral arteries is normal and symmetric. The flow within the middle cerebral arteries is normal and symmetric. The anterior communicating artery is seen. No stenoses, occlusions, or aneurysms. Posterior circulation: The visualized portions of the vertebral arteries demonstrate normal caliber, and join to form a normal appearing basilar artery. The flow within the posterior cerebral arteries is normal and symmetric. No stenoses, occlusions, or aneurysms. NECK MR ANGIOGRAM: The origins of the left and right common, internal and external carotid arteries demonstrate no areas of hemodynamically significant stenosis, vascular occlusion or aneurysmal dilation. Origin the left vertebral artery demonstrates no areas of hemodynamically significant stenosis, vascular occlusion or aneurysmal dilation. Origin of the right vertebral artery is obscured secondary to motion. Aortic arch demonstrates conventional anatomy. Limited, visualized portions of the subclavian vasculature are unremarkable. IMPRESSION: 1. No acute intracranial process. No acute ischemia. 2. Moderate atrophy and chronic microvascular ischemic changes. 3. No areas of hemodynamically significant stenosis, vascular occlusion or aneurysmal dilation within the anterior or posterior circulation. 4. No areas of hemodynamically significant stenosis, vascular occlusion or aneurysmal dilation within the neck vasculature. Dictated by: Veronica Rose M.D. on 09/13/2020 at 14:13 Approved by: Veronica Rose M.D. on 09/13/2020 at 14:40
== END ==
PROVIDERS: PCP Family Medicine; Referring Provider Family Medicine; Visit Provider Family Medicine
DX: H54.7 Unspecified visual loss (principal); R42 Dizziness and giddiness; R26.89 Other abnormalities of gait and mobility
CPT/HCPCS: 70548; 70553; A9579

== ENCOUNTER → 2020-09-15 13:17 | Outpatient (CLI) | payer MEDICARE, OTHER, SELFPAY ==
[2020-09-16 06:07] LABS: Calcium 9.7 mg/dL (8.7-10.3); Parathyroid Hormone, Intact 50 pg/mL (15-65)
== END ==
PROVIDERS: PCP Family Medicine; Referring Provider Family Medicine; Visit Provider Family Medicine
DX: E83.52 Hypercalcemia (principal)
CPT/HCPCS: 36415; 82310; 83970

== ENCOUNTER 2020-10-07 09:00 | Outpatient (RCR) | payer MEDICARE, OTHER, SELFPAY ==
--- NOTE | 2020-09-21 14:09 | PT.OIE ---
Current Diagnoses Benign paroxysmal vertigo, right ear (09/21/20) Other abnormalities of gait and mobility (09/21/20) Dizziness and giddiness (09/21/20) Past Medical History (Last Reviewed 09/11/20 @ 16:21 by Mariah Vega DO) Actinic keratosis Bilateral cataracts (2012) Chicken pox CTS (carpal tunnel syndrome) (1991) Glaucoma (1984) Herpes Hyperlipidemia (2001) Hypertension (1999) Insulin resistance Lumbar spine pain Measles Melanoma of thigh (1997) MRSA infection (2002) Mumps Osteoarthritis Recurrent sinusitis Right shoulder pain RLS (restless legs syndrome) (1994) Rubella Skin cancer Tuberculosis Past Surgical History (Last Reviewed 09/11/20 @ 16:21 by Mariah Vega DO) Anesthesia History of shoulder surgery (2004) S/P ACL reconstruction (2003) S/P total abdominal hysterectomy and bilateral salpingo-oophorectomy (1967) Status post laminectomy (2012) Status post laser cataract surgery of both eyes (2012) Visit Care Team Role Provider Type James Beckwith MD Attending Provider Physician Primary Care Provider Referring Provider Specialty: [facility] Address: [address] [place] [address] Email: 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 Pt reports she has a general sense of uneasiness and instability when she is up moving around or driving. Pt notes that is began September 01 when she was driving up to [place] for an appointment, and felt that she had a visual disturbance, which made her feel very uncomfortable, but felt better when she got to her destination and stopped moving . Pt notes the severity waxes and wanes, but has seemed to be improving over the last week. Pt denies recent hearing changes, tinnitus, diplopia, dysarthria, discoordination, or decreased mentation/ consciousness. Pt denies hx of HTN, diabetes, arrhythmia, head trauma, seizure, migraines, CVA, or excessive smoking or drinking. Prior Treatments and Tests Attempted self-Carlos Enrique maneuvers , BDEs PT-OP-C Subjective Start: 09/21/20 13:48 Freq: Status: Active Protocol: Document 09/21/20 12:00 DCW (Rec: 09/21/20 14:09 DCW [id number]) OP-PT Subjective Patient Comments Patient Comments I don't really know if it is inner ear or not, this just seems to be the next thing to check off trying to figure this all out. Patient Questionnaires Dizziness Handicap Inventory DHI Score 26% PT-OP-O Vestibular Start: 09/21/20 13:48 Freq: Status: Active Protocol: Document 09/21/20 12:00 DCW (Rec: 09/21/20 14:09 DCW [id number]) Vestibular Assessment Screening Tests Vestibular Artery Screen Negative Auditory Tests [place]itt Test Within normal limits Rinne Test Negative Air Conduction Results Equal Visual Testing Smooth Pursuits Horizontal WNL Smooth Pursuits Vertical WNL Saccades Horizontal WNL Gaze Evoked Nystagmus With Fixation Negative Gaze Evoked Nystagmus Without Fixation Negative Heave Test Positive Bilateral Thrust Head Positive Bilateral Capo String Test WNL DVA (Line Degradation) 5 Head Shake Negative Positional Testing [place]-Hallpike Positive Right,Negative Left, Upbeating,< 60 Seconds Vestibular Function Tests Fukuda Test Unable d/t anxiety PT-OP-Q Treatments Start: 09/21/20 13:48 Freq: Status: Active Protocol: Document 09/21/20 12:00 DCW (Rec: 09/21/20 14:09 DCW [id number]) Canalithic Repositioning BPPV Treatment Carlos Enrique Affected Canal(s) R Posterior Reps x1 Comments Modified Carlos Enrique PT-OP-T Assessment and Plan Start: 09/21/20 13:48 Freq: Status: Active Protocol: Document 09/21/20 12:00 DCW (Rec: 09/21/20 14:09 DCW [id number]) Physical Therapy Assessment Rehab Potential Rehabilitation Potential Good Evaluation Complexity Number of Personal Factors/Comorbidities 1-2 Number of Body Systems Impaired 1-2 Clinical Presentation at Evaluation Stable Impairments Impairments Balance,Coordination, Vestibular Goals Three Impairment Pt unable to drive on highway due to uneasiness and visual disturbances Child Care Attendant School Goal (LTG) Pt to report traveling between [place] and [place] with no occurance of symptoms LTG Duration 10/22/20 Two Impairment Positive R Dl-Hallpike Snf Goal (LTG) Pt to have negative positional testing bilaterally LTG Duration 10/22/20 One Impairment Pt exhibits increased balance anxiety as per 26% disability on DHI Child Care Attendant School Goal (LTG) Pt to score <10% handicap on DHI LTG Duration 10/22/20 Assessment Summary Assessment During right Dl-Hallpike test , pt complained of vertigo and demonstrated a very mild up- beating, torsional nystagmus lasting approximately 5 seconds, consistent with diagnosis of right-sided posterior canal BPPV, canalithiasis-type. Pt was treated with a right-sided modified Carlos Enrique maneuver. Pt complained of symptoms in the first and third position, which is normally indicative of a successful treatment. Pt' s initial complaints, however, were not necessarily consistent with BPPV, however BPPV, particularly in older females, can leave the patient with a general sense of imbalance or uneasiness, even when not performing positional changes. This may be what she was noticing, and then just never positioned herself in ways that triggered true vertigo. Best way to DDx if her complaints are caused by BPPV or if there is a different underlying cause is to work on successfully treating her right-sided posterior canal BPPV, and determining what symptoms remain. Pt was educated on BPPV, expectations for treatment, possible recurrence (BPPV has a ~50% recurrence rate in the five years following treatment), and post -Carlos Enrique restrictions. Pt to return in ~1 week for a follow -up appointment, and intermittently afterward as indicated for treatment of BPPV. Physical Therapy Plan Frequency and Duration Frequency of Treatment 1-2x/week Duration of Treatment 6 weeks Plan of Care Start Date 09/21/20 Plan of Care End Date 11/02/20 Therapeutic Interventions Therapeutic Interventions Balance Training,Canalithic Repositioning,Neuromuscular Re -education,Patient/Caregiver Education,Self-Care/Home Management,Vestibular Rehabilitation Next Visit Focus/Plan Next Note Type Treatment Note Next Visit Plan Positional testing, CRM as indicated, further vestibular testing
--- NOTE | 2020-09-21 14:10 | PT.OPPOC ---
Physical, Occupational & Speech Therapy At [facility] Current Diagnoses Benign paroxysmal vertigo, right ear (09/21/20) Other abnormalities of gait and mobility (09/21/20) Dizziness and giddiness (09/21/20) Visit Care Team Role Provider Type James Beckwith MD Attending Provider Physician Primary Care Provider Referring Provider Specialty: Family Practice Address: [address] [place] [address], [facility] Email: [email or web address] Plan Of Care PT-OP-T Assessment and Plan Start: 09/21/20 13:48 Freq: Status: Active Protocol: Document 09/21/20 12:00 DCW (Rec: 09/21/20 14:09 DCW [id number]) Physical Therapy Assessment Rehab Potential Rehabilitation Potential Good Evaluation Complexity Number of Personal Factors/Comorbidities 1-2 Number of Body Systems Impaired 1-2 Clinical Presentation at Evaluation Stable Impairments Impairments Balance,Coordination, Vestibular Goals Three Impairment Pt unable to drive on highway due to uneasiness and visual disturbances Maple Sugar Maker Goal (LTG) Pt to report traveling between [place] and [place] with no occurrence of symptoms LTG Duration 10/22/20 Two Impairment Positive R [place]-Hallpike Maple Sugar Maker Goal (LTG) Pt to have negative positional testing bilaterally LTG Duration 10/22/20 One Impairment Pt exhibits increased balance anxiety as per 26% disability on DHI Correction Goal (LTG) Pt to score <10% handicap on DHI LTG Duration 10/22/20 Assessment Summary Assessment During right Dl-Hallpike test , pt complained of vertigo and demonstrated a very mild up- beating, torsional nystagmus lasting approximately 5 seconds, consistent with diagnosis of right-sided posterior canal BPPV, canalithiasis-type. Pt was treated with a right-sided modified Carlos Enrique maneuver. Pt complained of symptoms in the first and third position, which is normally indicative of a successful treatment. Pt's initial complaints, however, were not necessarily consistent with BPPV, however BPPV, particularly in older females, can leave the patient with a general sense of imbalance or uneasiness, even when not performing positional changes. This may be what she was noticing, and then just never positioned herself in ways that triggered true vertigo. Best way to DDx if her complaints are caused by BPPV or if there is a different underlying cause is to work on successfully treating her right-sided posterior canal BPPV, and determining what symptoms remain. Pt was educated on BPPV, expectations for treatment, possible recurrence (BPPV has a ~50% recurrence rate in the five years following treatment), and post -Carlos Enrique restrictions. Pt to return in ~1 week for a follow -up appointment, and intermittently afterward as indicated for treatment of BPPV. Physical Therapy Plan Frequency and Duration Frequency of Treatment 1-2x/week Duration of Treatment 6 weeks Plan of Care Start Date 09/21/20 Plan of Care End Date 11/02/20 Therapeutic Interventions Therapeutic Interventions Balance Training,Canalithic Repositioning,Neuromuscular Re -education,Patient/Caregiver Education,Self-Care/Home Management,Vestibular Rehabilitation Next Visit Focus/Plan Next Note Type Treatment Note Next Visit Plan Positional testing, CRM as indicated, further vestibular testing Plan of Care Dates Plan of Care Start Date 09/21/20 Plan of Care End Date 11/02/20 Electronically Signed by: Adarsh Francis, PT 09/21/20 [id number] Please Sign and Return: I have reviewed this Plan of Care and certify that the skilled therapy services above are required to meet the patient?s needs. Physician Signature Date Printed Name and Credentials Clinical Instructor Signature Printed Name and Credentials
--- NOTE | 2020-09-29 12:40 | PT.OTN ---
Current Diagnoses Benign paroxysmal vertigo, right ear (09/29/20) Other abnormalities of gait and mobility (09/29/20) Dizziness and giddiness (09/29/20) Physical Therapy Treatment Note PT-OP-A Visit Information Start: 09/21/20 13:48 Freq: Status: Active Protocol: Document 09/29/20 12:00 DCW (Rec: 09/29/20 12:40 DCW [id number]) Out-Patient Physical Therapy Visit Information Visit Information Visit Type Treatment Note Visit Start Time 12:00 Visit Stop Time 12:32 Total Visit Minutes 32 Visit Number 2 Number of TRAINING PROGRAM MANAGER Visits 0 Evaluation Information Evaluation Date 09/21/20 PT-OP-B Current Condition Start: 09/21/20 13:48 Freq: Status: Active Protocol: Document 09/21/20 12:00 DCW (Rec: 09/21/20 14:09 DCW [id number]) Current Condition History of Current Condition Onset Date Three weeks Current Complaints Instability, visual disturbances History of Current Condition Pt is a 80 year old female complaining of a three week history of imbalance and feeling her equilibrium is off. Pt reports she has a general sense of uneasiness and instability when she is up moving around or driving. Pt notes that is began September 01 when she was driving up to [place] for an appointment, and felt that she had a visual disturbance, which made her feel very uncomfortable, but felt better when she got to her destination and stopped moving . Pt notes the severity waxes and wanes, but has seemed to be improving over the last week. Pt denies recent hearing changes, tinnitus, diplopia, dysarthria, discoordination, or decreased mentation/ consciousness. Pt denies hx of HTN, diabetes, arrhythmia, head trauma, seizure, migraines, CVA, or excessive smoking or drinking. Prior Treatments and Tests Attempted self-Carlos Enrique maneuvers , BDEs PT-OP-C Subjective Start: 09/21/20 13:48 Freq: Status: Active Protocol: Document 09/29/20 12:00 DCW (Rec: 09/29/20 12:40 DCW [id number]) OP-PT Subjective Patient Comments Patient Comments Pt reports that she was pretty rough for two days following her last visit, and then slowly was improving until Saturday night, which was one of the worst episodes I' ve had. PT-OP-O Vestibular Start: 09/21/20 13:48 Freq: Status: Active Protocol: Document 09/29/20 12:00 DCW (Rec: 09/29/20 12:40 DCW [id number]) Vestibular Assessment Visual Testing Convergence Test 5 cm Positional Testing Dl-Hallpike Positive Right,Negative Left, Upbeating,< 60 Seconds Rolling Test Negative Left,Negative Right PT-OP-Q Treatments Start: 09/21/20 13:48 Freq: Status: Active Protocol: Document 09/29/20 12:00 DCW (Rec: 09/29/20 12:40 DCW [id number]) Canalithic Repositioning BPPV Treatment Carlos Enrique Affected Canal(s) R Posterior Reps x1 Comments Modified Carlos Enrique PT-OP-T Assessment and Plan Start: 09/21/20 13:48 Freq: Status: Active Protocol: Document 09/29/20 12:00 DCW (Rec: 09/29/20 12:40 DCW [id number]) Physical Therapy Assessment Impairments Impairments Balance,Coordination, Vestibular Goals Three Impairment Pt unable to drive on highway due to uneasiness and visual disturbances Taste Tester Goal (LTG) Pt to report traveling between [place] and [place] with no occurance of symptoms LTG Duration 10/22/20 Two Impairment Positive R [place]-Hallpike [facility] Goal (LTG) Pt to have negative positional testing bilaterally LTG Duration 10/22/20 One Impairment Pt exhibits increased balance anxiety as per 26% disability on DHI Senior Care Goal (LTG) Pt to score <10% handicap on DHI LTG Duration 10/22/20 Assessment Summary Assessment Positional testing was initially negative, however upon retesting, during right Dl-Hallpike test, pt complained of vertigo and demonstrated a very mild up- beating, torsional nystagmus lasting approximately 4 beats, consistent with diagnosis of right-sided posterior canal BPPV, canalithiasis-type. Pt was treated with a right-sided modified Carlos Enrique maneuver. No further testing showed any ongoing symptoms. Plan to see pt again next week, and if positional testing is still negative or even very mildly positive, may want to add visual motion exercises to assist with pt's sensitivity. Physical Therapy Plan Frequency and Duration Frequency of Treatment 1-2x/week Duration of Treatment 6 weeks Plan of Care Start Date 09/21/20 Plan of Care End Date 11/02/20 Therapeutic Interventions Therapeutic Interventions Balance Training,Canalithic Repositioning,Neuromuscular Re -education,Patient/Caregiver Education,Self-Care/Home Management,Vestibular Rehabilitation Next Visit Focus/Plan Next Note Type Treatment Note Next Visit Plan Positional testing, CRM as indicated, further vestibular testing
--- NOTE | 2020-10-07 09:34 | PT.OTN ---
Current Diagnoses Benign paroxysmal vertigo, right ear (10/07/20) Other abnormalities of gait and mobility (10/07/20) Dizziness and giddiness (10/07/20) Physical Therapy Treatment Note PT-OP-A Visit Information Start: 09/21/20 13:48 Freq: Status: Active Protocol: Document 10/07/20 09:00 DCW (Rec: 10/07/20 09:34 DCW [id number]) Out-Patient Physical Therapy Visit Information Visit Information Visit Type Treatment Note Visit Start Time 09:00 Visit Stop Time 09:28 Total Visit Minutes 28 Visit Number 3 Number of LABEL MAKER Visits 0 Evaluation Information Evaluation Date 09/21/20 PT-OP-B Current Condition Start: 09/21/20 13:48 Freq: Status: Active Protocol: Document 09/21/20 12:00 DCW (Rec: 09/21/20 14:09 DCW [id number]) Current Condition History of Current Condition Onset Date Three weeks Current Complaints Instability, visual disturbances History of Current Condition Pt is a 80 year old female complaining of a three week history of imbalance and feeling her equilibrium is off. Pt reports she has a general sense of uneasiness and instability when she is up moving around or driving. Pt notes that is began September 01 when she was driving up to [place] for an appointment, and felt that she had a visual disturbance, which made her feel very uncomfortable, but felt better when she got to her destination and stopped moving . Pt notes the severity waxes and wanes, but has seemed to be improving over the last week. Pt denies recent hearing changes, tinnitus, diplopia, dysarthria, discoordination, or decreased mentation/ consciousness. Pt denies hx of HTN, diabetes, arrhythmia, head trauma, seizure, migraines, CVA, or excessive smoking or drinking. Prior Treatments and Tests Attempted self-Carlos Enrique maneuvers , BDEs PT-OP-C Subjective Start: 09/21/20 13:48 Freq: Status: Active Protocol: Document 10/07/20 09:00 DCW (Rec: 10/07/20 09:34 DCW [id number]) OP-PT Subjective Patient Comments Patient Comments I can't really say I have had any consistent symptoms. I had a day Saturday that I felt a little wobbly, but that's about it. It's nice to feel symptom-free. Pt notes that she had an eye exam, and they couldn't find any organic cause of her dizziness or visual problems. PT-OP-O Vestibular Start: 09/21/20 13:48 Freq: Status: Active Protocol: Document 10/07/20 09:00 DCW (Rec: 10/07/20 09:34 DCW [id number]) Vestibular Assessment Positional Testing Dl-Hallpike Negative Left,Negative Right PT-OP-Q Treatments Start: 09/21/20 13:48 Freq: Status: Active Protocol: Document 10/07/20 09:00 DCW (Rec: 10/07/20 09:34 DCW [id number]) Manual Therapy Treatment Other Other Manual Treatments Positional testing Neuro Re-Education Treatment Vestibular Rehabilitation Corrective Saccades Details Two targets, eyes, then head Distance From Target Arm length Speed as tolerated X2 Viewing Details Target, Head in opposite directions Distance From Target Arm length Speed as tolerated Position seated X1 Viewing Details Static target, head moving Distance From Target Arm length Speed as tolerated Position seated VOR Retraining Details Target, eyes, head move together Distance From Target Arm length Speed as tolerated Position seated PT-OP-T Assessment and Plan Start: 09/21/20 13:48 Freq: Status: Active Protocol: Document 10/07/20 09:00 DCW (Rec: 10/07/20 09:34 DCW [id number]) Physical Therapy Assessment Impairments Impairments Balance,Coordination, Vestibular Goals Three Impairment Pt unable to drive on highway due to uneasiness and visual disturbances Nursing Home Goal (LTG) Pt to report traveling between [place] and [place] with no occurance of symptoms LTG Duration 10/22/20 Two Impairment Positive R [place]-Hallpike Nursing [facility] Goal (LTG) Pt to have negative positional testing bilaterally LTG Duration 10/22/20 One Impairment Pt exhibits increased balance anxiety as per 26% disability on DHI Nursing Home Goal (LTG) Pt to score <10% handicap on DHI LTG Duration 10/22/20 Assessment Summary Assessment Positional testing negative today. Pt overall feeling very good. Pt given visual motion/ vestibular exercise to assist decreasing visual motion sensitivity Physical Therapy Plan Frequency and Duration Frequency of Treatment 1-2x/week Duration of Treatment 6 weeks Plan of Care Start Date 09/21/20 Plan of Care End Date 11/02/20 Therapeutic Interventions Therapeutic Interventions Balance Training,Canalithic Repositioning,Neuromuscular Re -education,Patient/Caregiver Education,Self-Care/Home Management,Vestibular Rehabilitation Next Visit Focus/Plan Next Note Type Treatment Note Next Visit Plan Positional testing, CRM as indicated, further vestibular testing
--- NOTE | 2020-12-08 11:23 | PT.OPDS ---
Current Diagnoses Benign paroxysmal vertigo, right ear (10/07/20) Other abnormalities of gait and mobility (10/07/20) Dizziness and giddiness (10/07/20) Visit Care Team Role Provider Type James Beckwith MD Attending Provider Physician Primary Care Provider Referring Provider Specialty: Family Practice Address: [address] [place] [address], [id number] Email: [email or web address] Visit Number Visit Number 3 Discharge Summary PT-OP-B Current Condition Start: 09/21/20 13:48 Freq: Status: Active Protocol: Document 09/21/20 12:00 DCW (Rec: 09/21/20 14:09 DCW [id number]) Current Condition History of Current Condition Onset Date Three weeks Current Complaints Instability, visual disturbances History of Current Condition Pt is a 80 year old female complaining of a three week history of imbalance and feeling her equilibrium is off. Pt reports she has a general sense of uneasiness and instability when she is up moving around or driving. Pt notes that is began September 01 when she was driving up to [place] for an appointment, and felt that she had a visual disturbance, which made her feel very uncomfortable, but felt better when she got to her destination and stopped moving . Pt notes the severity waxes and wanes, but has seemed to be improving over the last week. Pt denies recent hearing changes, tinnitus, diplopia, dysarthria, discoordination, or decreased mentation/ consciousness. Pt denies hx of HTN, diabetes, arrhythmia, head trauma, seizure, migraines, CVA, or excessive smoking or drinking. Prior Treatments and Tests Attempted self-Carlos Enrique maneuvers , BDEs PT-OP-C Subjective Start: 09/21/20 13:48 Freq: Status: Active Protocol: Document 10/07/20 09:00 DCW (Rec: 10/07/20 09:34 DCW [id number]) OP-PT Subjective Patient Comments Patient Comments I can't really say I have had any consistent symptoms. I had a day Saturday that I felt a little wobbly, but that's about it. It's nice to feel symptom-free. Pt notes that she had an eye exam, and they couldn't find any organic cause of her dizziness or visual problems. PT-OP-O Vestibular Start: 09/21/20 13:48 Freq: Status: Active Protocol: Document 10/07/20 09:00 DCW (Rec: 10/07/20 09:34 DCW [id number]) Vestibular Assessment Positional Testing Dl-Hallpike Negative Left,Negative Right PT-OP-T Assessment and Plan Start: 09/21/20 13:48 Freq: Status: Active Protocol: Document 12/08/20 11:21 DCW (Rec: 12/08/20 11:23 DCW [id number]) Physical Therapy Assessment Assessment Summary Assessment Pt was responding well to vestibular rehabilitation. Has not returned for follow-up, and has now not been seen in more than two months. Pt will require a new referral in order to return to skilled therapy, and will be discharged at this time. Physical Therapy Plan Discharge Physical Therapy Discharge Reasons No Longer Attending PT
== END 2020-12-16 11:24 ==
LOC: PHYS 09:00
PROVIDERS: PCP Family Medicine; Referring Provider Family Medicine; Visit Provider Family Medicine
DX: H81.11 Benign paroxysmal vertigo, right ear (principal); R26.89 Other abnormalities of gait and mobility
CPT/HCPCS: 95992; 97112; 97140; 97161

== ENCOUNTER → 2021-05-05 06:48 | Outpatient (CLI) | payer MEDICARE, OTHER, SELFPAY ==
[2021-05-05 09:07] LABS: Add Manual Diff / Slide Review NO; Basophils Absolute Auto 100 /uL (0-100); Basophils Percent Auto 2.2 % (0-2); Eosinophils Absolute Auto 500 /uL (0-450); Eosinophils Percent Auto 8.1 % (2-4); Hematocrit 37.1 % (36-46); Hemoglobin 12.4 g/dL (12.0-16.0); Lymphocytes Absolute Auto 2000 /uL (1100-4500); Mean Corpuscular HGB Conc 33.5 % (30-36); Mean Corpuscular Hemoglobin 31.1 PG (26-34); Mean Corpuscular Volume 92.8 fL (80-100); Monocytes Absolute Auto 500 /uL (0-900); Monocytes Percent Auto 7.4 % (3-14); Neutrophils Absolute Auto 3600 /uL (1500-7000); Neutrophils Percent Auto 52.3 % (50-75); Platelet Count 322 X10^3/uL (150-400); Red Cell Distribution Width 14.3 % (11.6-14.8); White Blood Cell Count 6.8 X10^3/uL (4.5-11.0)
[2021-05-05 09:21] LABS: Alanine Aminotransferase 17 IU/L (<35); Albumin Globulin Ratio 1.3 (1.0-2.8); Alkaline Phosphatase 73 U/L (38-126); Aspartate Aminotransferase 23 IU/L (14-36); BUN Creatinine Ratio 35.5 (6-22); Bilirubin Total 0.4 mg/dL (0.2-1.3); Blood Urea Nitrogen 39 mg/dL (7-17); Calcium 9.6 mg/dL (8.4-10.2); Carbon Dioxide 27 mmol/L (22-32); Chloride 104 mmol/L (98-107); Cholesterol 285 mg/dL (140-199); Estimated Glomerular Filt Rate 47.8 mL/min (>60); Globulin 3.2 g/dL (1.7-4.1); Glucose 120 mg/dL (80-110); HDL Cholesterol 60 mg/dL (40-60); HEMOLYSIS < 15 (0-50); LDL Cholesterol Calculated 183 mg/dL (<100); Potassium 4.5 mmol/L (3.4-5.1); Sodium 138 mmol/L (137-145); Total Protein 7.2 g/dL (6.3-8.2); Triglycerides 211 mg/dL (35-150)
[2021-05-05 09:50] LABS: Thyroid Stimulating Hormone 2.71 uIU/mL (0.47-4.68)
[2021-05-05 09:56] LABS: Creatinine Urine Random 130.9 mg/dL
[2021-05-05 10:00] LABS: Microalbumi Creatinin Ratio Ur 9.1 ug/mg CR (<30); Microalbumin Urine Random 1.2 mg/dL (0-1.6)
== END ==
PROVIDERS: PCP Family Medicine; Referring Provider Family Medicine; Visit Provider Family Medicine
DX: E78.5 Hyperlipidemia, unspecified (principal); E88.81 Metabolic syndrome and other insulin resistance; I10 Essential (primary) hypertension
CPT/HCPCS: 36415; 80053; 80061; 82043; 82570; 84443; 85025

== ENCOUNTER → 2021-08-23 14:45 | Outpatient (CLI) | payer MEDICARE, OTHER, SELFPAY ==
--- NOTE | 2021-08-23 14:46 | DI.RAD.S_ITS ---
PROCEDURE: XR HIP W PEL IF DONE LT 2V INDICATIONS: Left hip and SI joint pain TECHNIQUE: AP pelvis with lateral view(s) of the left hip(s). COMPARISON: None. FINDINGS: Bones: No fractures or dislocations. Pelvic ring appears intact. No suspicious bony lesions. Mild joint space narrowing and periarticular osteophyte formation at the bilateral hip and sacroiliac joints. Osteitis pubis is present. Lumbosacral fusion hardware is present. Soft tissues: The visualized bowel gas pattern is normal. No suspicious soft tissue calcifications. IMPRESSION: 1. Osteoarthritis. 2. Osteitis pubis. 3. No acute fracture. No osseous lesion. If symptoms and/or clinical suspicion for pathology persist, further assessment with repeat, or advanced imaging (e.g., CT, MRI, or bone scan) may be helpful for further assessment. Dictated by: Cecilia Swanson M.D. on 08/23/2021 at 16:55 Approved by: Cecilia Swanson M.D. on 08/23/2021 at 16:55
--- NOTE | 2021-08-23 14:46 | DI.RAD.S_ITS ---
PROCEDURE: XR CHEST 2V INDICATIONS: Persistent cough x 1 year TECHNIQUE: 2 views of the chest were acquired. COMPARISON: [facility], , XR CHEST 1V, 09/11/2020, 15:58. FINDINGS: Surgical changes and devices: None. Lungs and pleura: Mild infiltrate in the right upper lung zone. No pleural effusions or pneumothorax. Mediastinum: Mediastinal contours are normal. Heart size is normal. Bones and chest wall: No suspicious bony abnormalities. Soft tissues appear unremarkable. There is right shoulder arthroplasty. IMPRESSION: Mild infiltrate in the right upper lung zone compatible with pneumonia. Dictated by: Katarina Mascorro M.D. on 08/23/2021 at 17:16 Approved by: Katarina Mascorro M.D. on 08/23/2021 at 17:17
== END ==
PROVIDERS: PCP Family Medicine; Referring Provider Physician Assistant; Visit Provider Physician Assistant
DX: R05.3 Chronic cough (principal); R91.8 Other nonspecific abnormal finding of lung field; M16.0 Bilateral primary osteoarthritis of hip; M86.8X8 Other osteomyelitis, other site; M53.3 Sacrococcygeal disorders, not elsewhere classified; M25.552 Pain in left hip; Z98.1 Arthrodesis status
CPT/HCPCS: 71046; 73502

== ENCOUNTER → 2021-08-25 14:32 | Outpatient (CLI) | payer MEDICARE, OTHER, SELFPAY ==
[2021-08-25 14:55] LABS: Add Manual Diff / Slide Review NO; Basophils Absolute Auto 100 /uL (0-100); Eosinophils Absolute Auto 600 /uL (0-450); Eosinophils Percent Auto 6.1 % (2-4); Hemoglobin 12.5 g/dL (12.0-16.0); Lymphocytes Absolute Auto 2500 /uL (1100-4500); Lymphocytes Percent Auto 27.3 % (25-40); Mean Corpuscular HGB Conc 33.9 % (30-36); Mean Corpuscular Hemoglobin 30.8 PG (26-34); Mean Corpuscular Volume 90.7 fL (80-100); Monocytes Absolute Auto 700 /uL (0-900); Monocytes Percent Auto 7.6 % (3-14); Neutrophils Absolute Auto 5300 /uL (1500-7000); Platelet Count 340 X10^3/uL (150-400); Red Blood Cell Count 4.07 X10^6/uL (4.0-5.2); White Blood Cell Count 9.2 X10^3/uL (4.5-11.0)
== END ==
PROVIDERS: PCP Family Medicine; Referring Provider Physician Assistant; Visit Provider Physician Assistant
DX: R05.3 Chronic cough (principal); R93.89 Abnormal findings on diagnostic imaging of other specified body structures
CPT/HCPCS: 36415; 85025

== ENCOUNTER → 2021-10-02 10:33 | Outpatient (CLI) | payer MEDICARE, OTHER, SELFPAY ==
--- NOTE | 2021-10-02 10:35 | DI.RAD.S_ITS ---
PROCEDURE: XR CHEST 2V INDICATIONS: Slight infiltrate RUL per last CXR; checking for change TECHNIQUE: 2 views of the chest were acquired. COMPARISON: [facility], , XR CHEST 2V, 08/23/2021, 14:42. FINDINGS: Surgical changes and devices: Right shoulder arthroplasty. Lungs and pleura: Previous right upper lobe opacity has resolved. Mediastinum: Mediastinal contours are normal. Heart size is normal. Bones and chest wall: No suspicious bony abnormalities. Soft tissues appear unremarkable. IMPRESSION: No acute pulmonary process. Dictated by: Veronica Rose M.D. on 10/02/2021 at 13:00 Approved by: Veronica Rose M.D. on 10/02/2021 at 13:01
== END ==
PROVIDERS: PCP Family Medicine; Referring Provider Physician Assistant; Visit Provider Physician Assistant
DX: R93.89 Abnormal findings on diagnostic imaging of other specified body structures (principal)
CPT/HCPCS: 71046

== ENCOUNTER 2021-11-11 08:51 | Emergency (ER) | payer MEDICARE, OTHER, SELFPAY ==
[2021-11-11] VITALS (11 sets, daily range): BP systolic 158–212; BP diastolic 74–93; PULSE 68–73; RESP 15–22; TEMP 36.7; O2SAT 96–98; BMI 27.3
--- NOTE | 2021-11-11 09:36 | DI.RAD.S_ITS ---
PROCEDURE: XR CHEST 1V INDICATIONS: lightheaded, +nausea TECHNIQUE: One view of the chest was acquired. COMPARISON: [facility], CR, XR CHEST 1V, 09/11/2020, 15:58. [facility], CR, XR CHEST 2V, 08/23/2021, 14:42. [facility], CR, XR CHEST 2V, 10/02/2021, 11:52. FINDINGS: Surgical changes and devices: Right shoulder arthroplasty hardware is seen. 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 Lungs and pleura: On this semiupright portable chest examination, no large pneumothorax or large pleural effusions are seen. No focal infiltrates are seen. Mediastinum: The cardiac contours are within normal limits. The aorta demonstrates calcification and tortuosity. Bones and chest wall: No suspicious bony lesions. Age-appropriate bony degenerative changes are seen. Overlying soft tissues appear unremarkable. IMPRESSION: Portable chest study within normal limits for age, with note made of postoperative and degenerative changes. Dictated by: Brian Vee M.D. on 11/11/2021 at 9:23 Approved by: Brian Vee M.D. on 11/11/2021 at 9:24
--- NOTE | 2021-11-11 09:37 | ED.DIZZY ---
HPI - Dizziness General Chief Complaint: Dizziness Stated Complaint: feels faint, weak Time Seen by Provider: 11/11/21 09:07 Source: patient and family Mode of arrival: Wheelchair Limitations: no limitations History of Present Illness HPI Narrative: This is an 81-year-old female comes in with complaint of lightheadedness and nausea. Patient states she has had very short episodes intermittently for some time she has difficulty giving exact time frame but at least month. Patient states today she had a longer episode. She states they typically been like a cloud passing over very quickly and today she thinks it was probably us couple seconds at the most. She felt like she might pass out but did not. She did not have any loss of tone. She was standing in the kitchen making breakfast. Afterwards she felt nauseated. With prior episodes it is similar but not quite as strong. She states she felt sick or disc nauseated and unwell afterwards for probably about half an hour and feels back to normal now. She states typically when she is standing. She has had multiple episodes. No fevers or chills. No headache. No vision changes. No chest pain or shortness of breath. She is no longer nauseated but was earlier. She has never had episodes of vomiting with this. She denies abdominal, back flank pain. No issues with bowel movements such as diarrhea constipation. She has not had any dysuria urgency or frequency. She has never had any loss of consciousness. Patient notes that she is on HCTZ and losartan. She had her losartan decreased from 50-25 mg because she has had these episodes. Last August she was changed from losartan from an PARAM-inhibitor and was having frequent episodes of vertigo at that time. She states this does not feel like her vertigo. She had an eye surgery in August but has not had any other surgeries. No tobacco, glass of wine nightly, no illicit. She is allergic to sulfa. She is vaccinated and boosted for coronavirus. Dr. Beckwith is her PCP. Patient notes she did rest blood pressure that was 155/80 about an hour prior to the episode occurring at 8:00 a.m.. Related Data Home Medications Medication Instructions Recorded Confirmed fexofenadine 180 mg tablet 180 mg PO DAILY 09/27/20 08/22/21 (Anastacia Allergy) Previous Rx's Medication Instructions Recorded hydrochlorothiazide 25 mg tablet 25 mg PO QDAY #90 tab 05/11/21 temazepam 15 mg capsule 15 mg PO BEDTIME PRN #30 cap 07/24/21 benzonatate 100 mg capsule See Rx Instructions PO TID #30 cap 08/29/21 losartan 50 mg tablet See Rx Instructions .ROUTE 09/18/21 .COMPLEX #30 tab lorazepam 0.5 mg tablet 0.5 mg PO BEDTIME PRN #20 tab 10/24/21 meclizine 25 mg tablet 25 mg PO TID PRN #10 tab 10/26/21 Allergies Allergy/AdvReac Type Severity Reaction Status Date / Time Pmzgehn-XNO-OuP Reductase Allergy Severe 'SWOLLEN Verified 08/22/21 15:27 Inhibitor LIPS,TONGUE,AIRWAY [Cmvqpdt-Vbh-Mjr Reductase INVOLVED Inhibitor] codeine [CODEINE] Allergy Mild N&V Verified 08/22/21 15:27 fentanyl [FENTANYL] Allergy Mild N&V Verified 08/22/21 15:27 naproxen [NAPROXEN] Allergy Mild HEADACHE Verified 08/22/21 15:27 Sulfa (Sulfonamide Allergy Mild HIVES Verified 08/22/21 15:27 Antibiotics) [SULFA (SULFONAMIDE ANTIBIOTICS)] BETA HADLEY EYE GTTS Allergy Mild AFFECTED Uncoded 08/22/21 15:27 CLIMBING ABILITY Review of Systems Review of Systems ROS Unobtainable: All systems reviewed & are unremarkable except as noted in HPI and below Patient History Medical History (Updated 11/11/21 @ 09:43 by Ella Jean DO) Actinic keratosis Bilateral cataracts (2012) Chicken pox CTS (carpal tunnel syndrome) (1991) Glaucoma (1984) Herpes Hyperlipidemia (2001) Hypertension (1999) Insulin resistance Lumbar spine pain Measles Melanoma of thigh (1997) MRSA infection (2002) Mumps Osteoarthritis Recurrent sinusitis Right shoulder pain RLS (restless legs syndrome) (1994) Rubella Skin cancer Tuberculosis Surgical History Anesthesia History of shoulder surgery (2004) S/P ACL reconstruction (2003) S/P total abdominal hysterectomy and bilateral salpingo-oophorectomy (1967) Status post laminectomy (2012) Status post laser cataract surgery of both eyes (2012) Family History Brother Age: 84 Essential hypertension High cholesterol Father Essential hypertension Parkinson's disease Mother Essential hypertension Osteoporosis Congestive heart failure Social History Smoking Status: Never smoker alcohol intake: current substance use type: does not use Smoking Status: Never smoker alcohol intake frequency: 0-2 drinks per day Substance Use Type: does not use Exam Narrative Exam Narrative: GEN: well nourished, well appearing female, alert and oriented x 3, patient appears to be in mild distress. HEENT: Atraumatic, pupils are equal round reactive to light, extraocular movements are intact. HEART: Regular rate and rhythm without murmur, clicks, rubs. No edema bilateral upper and lower extremities. No JVD. LUNGS:Lungs clear to auscultation, no wheezes, rales, crackles, chest moves symmetrically ABD:bowel sounds normal, soft, non-tender, no guarding, rebound, rigidity, no masses noted, no hepatosplenomegaly :No CVA tenderness MSCL: Non-tender, no muscle atrophy, full range of motion NEURO:CN 2-12 intact, sensation normal SKIN: No rash, erythema or other skin changes. Initial Vital Signs Initial Vital Signs: Vital Signs Temperature 98.1 F 11/11/21 08:55 Pulse Rate 72 11/11/21 08:55 Respiratory Rate 18 11/11/21 08:55 Blood Pressure 212/93 H 11/11/21 08:55 Pulse Oximetry 97 11/11/21 08:55 Course Orders Ordered: ED Orders 11/11/21 10:12 COVID19 -Nasal swab/Pre-Proc Stat Discontinued Medications Sodium Chloride (Normal Saline 0.9%) 1,000 mls @ 1,000 mls/hr IV BOLUS ONE Stop: 11/11/21 10:35 Last Infusion: 11/11/21 11:33 Dose: 0 mls/hr Documented by: Admin: 11/11/21 10:08 Dose: 1,000 mls/hr Documented by: EMMA Vital Signs Vital signs: Vital Signs - 8 hr 11/11/21 11:00 11/11/21 11:30 11/11/21 11:55 Pulse Rate 70 71 68 Respiratory Rate 18 15 Blood Pressure 164/74 H 162/77 H 168/88 H Pulse Oximetry 98 96 98 11/11/21 12:00 Pulse Rate 68 Respiratory Rate 18 Blood Pressure 158/86 H Pulse Oximetry 98 MDM - Dizziness Lab Data Result diagrams: 11/11/21 09:08 11/11/21 09:08 Labs: Lab Results 11/11/21 11/11/21 11/11/21 Range/Units 09:08 09:08 10:12 WBC 6.8 (4.5-11.0) X10^3/uL RBC 4.33 (4.0-5.2) X10^6/uL Hgb 13.5 (12.0-16.0) g/dL Hct 39.5 (36-46) % MCV 91.2 (80-100) fL MCH 31.2 (26-34) PG MCHC 34.2 (30-36) % RDW 14.9 H (11.6-14.8) % Plt Count 295 (150-400) X10^3/uL Neut % (Auto) 50.3 (50-75) % Lymph % (Auto) 34.1 (25-40) % [place] % (Auto) 7.6 (3-14) % Eos % (Auto) 6.8 H (2-4) % Baso % (Auto) 1.2 (0-2) % Neut # (Auto) 3400 (9772-7412) /uL Lymph # (Auto) 2300 (7322-0931) /uL [place] # (Auto) 500 (0-900) /uL Eos # (Auto) 500 H (0-450) /uL Baso # (Auto) 100 (0-100) /uL Sodium 137 (137-145) mmol/L Potassium 4.1 (3.4-5.1) mmol/L Chloride 100 (98-107) mmol/L Carbon Dioxide 32 (22-32) mmol/L BUN 26 H (7-17) mg/dL Creatinine 1.14 H (0.52-1.04) mg/dL Estimated GFR 45.9 L (>60) mL/min BUN/Creatinine Ratio 22.8 H (6-22) Glucose 134 H (80-110) mg/dL Calcium 9.9 (8.4-10.2) mg/dL Total Bilirubin 0.5 (0.2-1.3) mg/dL AST 28 (14-36) IU/L ALT 24 (<35) IU/L Alkaline Phosphatase 77 (38-126) U/L Troponin I < 0.012 (0.01-0.034) ng/mL Total Protein 7.9 (6.3-8.2) g/dL Albumin 4.5 (3.5-5.0) g/dL Globulin 3.4 (1.7-4.1) g/dL Albumin/Globulin Ratio 1.3 (1.0-2.8) Lipase 96 (23-300) U/L SARS-CoV-2 (PCR) Negative (Negative) Point of Care Testing Glucose POC 129 Urine Dip Bedside Urine Glucose Negative Bedside Urine Bilirubin - Negative Bedside Urine Ketone - Negative Urine Specific [place] 1.015 Bedside Urine Occult Blood - Negative Bedside Urine pH 6.0 Bedside Urine Protein - Negative Bedside Urine Urobilinogen - Negative Bedside Urine Nitrite - Negative Bedside Urine Leukocytes - Negative Esterase Imaging Data Chest x-ray: Radiologist's Impression: [address] [address] XRay Report Signed Patient: Misa Slater MR#: [id number] : 1940 Acct:[id number] Age/Sex: 81 / F Date of Service: 11/11/21 Loc: ED Accession Number: [id number] ?? Procedure: XR chest 1V Ordering Provider: Ella Jean D.O. PROCEDURE:? XR CHEST 1V ? INDICATIONS:? lightheaded, +nausea ? TECHNIQUE:? One view of the chest was acquired.? ? COMPARISON:? [facility], CR, XR CHEST 1V, 09/11/2020, 15:58.? [facility], CR, XR CHEST 2V, 08/23/2021, 14:42.? [facility], CR, XR CHEST 2V, 10/02/2021, 11:52. ? FINDINGS:? ? Surgical changes and devices:? Right shoulder arthroplasty hardware is seen.? 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 ? Lungs and pleura:? On this semiupright portable chest examination, no large pneumothorax or large pleural effusions are seen.? No focal infiltrates are seen.? ? Mediastinum:? The cardiac contours are within normal limits. The aorta demonstrates calcification and tortuosity. ? Bones and chest wall:? No suspicious bony lesions.? Age-appropriate bony degenerative changes are seen.? Overlying soft tissues appear unremarkable.? ? ? IMPRESSION:? Portable chest study within normal limits for age, with note made of postoperative and degenerative changes. ? ? Dictated by: Brian Vee M.D. on 11/11/2021 at 9:23 ? ? Approved by: Brian Vee M.D. on 11/11/2021 at 9:24?? ECG Data Attestation: I personally reviewed and interpreted this ECG as follows: Prior ECG tracings: available for review Interpretation: Sinus rhythm with sinus arrhythmia. 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 Rate of 68 DE 162, QRS of 126 and QTC of 489. Patient has prior EKG from 09/11/2020 which showed left anterior fascicular block but does not show a right bundle. [facility] Narrative Medical decision making narrative: This is an 81-year-old female with intermittent sensation of weakness or lightheadedness that is very short sometimes seconds. She has a new right bundle in comparison to prior EKG from about 2 years ago but no other changes. She is hypertensive on arrival. Labs otherwise do not show clear cause of her symptoms. She feels improved in the department and was discharged home but with plan for follow-up with primary care and/or cardiology Discharge Plan Departure Patient Disposition: Home Clinical Impression: Intermittent lightheadedness Instructions: DI for Dizziness-Nonvertigo Activity Restrictions/Additional Instructions: Please follow-up with your physician this week for recheck. Your EKG does show a new RBBB in comparison to EKGs from 2019. I would recommend follow up with cardiology for follow up and possibly Holter monitor or Ziopatch. Your labs today does show your creatinine is at its baseline but you may be mildly dehydrated. I would recommend increasing your fluid intake for the short-term. Please return for worsening symptoms, passing out, severe headaches, vision changes, chest pain or shortness of breath, persistent vomiting, new swelling in her extremities or other new or concerning symptoms. Prescriptions: No Action fexofenadine [Anastacia Allergy] 180 mg tablet 180 mg PO DAILY 0RF hydrochlorothiazide 25 mg tablet 25 mg PO QDAY Qty: 90 3RF temazepam 15 mg capsule 15 mg PO BEDTIME PRN (Reason: sleep) Qty: 30 1RF benzonatate 100 mg capsule See Rx Instructions PO TID Qty: 30 0RF Rx Instructions: Take one or two capsules up to 3 times a day as needed for cough losartan 50 mg tablet See Rx Instructions .ROUTE .COMPLEX Qty: 30 3RF Dose Instruction: TAKE 1 TABLET BY MOUTH DAILY Rx Instructions: TAKE 1 TABLET BY MOUTH DAILY lorazepam 0.5 mg tablet 0.5 mg PO BEDTIME PRN (Reason: restless leg(s)) Qty: 20 0RF Rx Instructions: Take one tablet by mouth at bedtime as needed for restless legs meclizine 25 mg tablet 25 mg PO TID PRN (Reason: dizziness) Qty: 10 0RF Referrals: James Beckwith MD [Primary Care Provider] - Aden Hamm MD [Physician] -
[2021-11-11 09:45] LABS: Add Manual Diff / Slide Review NO; Basophils Absolute Auto 100 /uL (0-100); Basophils Percent Auto 1.2 % (0-2); Eosinophils Absolute Auto 500 /uL (0-450); Eosinophils Percent Auto 6.8 % (2-4); Hematocrit 39.5 % (36-46); Hemoglobin 13.5 g/dL (12.0-16.0); Lymphocytes Absolute Auto 2300 /uL (1100-4500); Lymphocytes Percent Auto 34.1 % (25-40); Mean Corpuscular HGB Conc 34.2 % (30-36); Mean Corpuscular Hemoglobin 31.2 PG (26-34); Mean Corpuscular Volume 91.2 fL (80-100); Monocytes Absolute Auto 500 /uL (0-900); Monocytes Percent Auto 7.6 % (3-14); Neutrophils Absolute Auto 3400 /uL (1500-7000); Neutrophils Percent Auto 50.3 % (50-75); Platelet Count 295 X10^3/uL (150-400); Red Blood Cell Count 4.33 X10^6/uL (4.0-5.2); Red Cell Distribution Width 14.9 % (11.6-14.8); White Blood Cell Count 6.8 X10^3/uL (4.5-11.0)
[2021-11-11 09:51] LABS: Alanine Aminotransferase 24 IU/L (<35); Albumin 4.5 g/dL (3.5-5.0); Albumin Globulin Ratio 1.3 (1.0-2.8); Alkaline Phosphatase 77 U/L (38-126); Aspartate Aminotransferase 28 IU/L (14-36); BUN Creatinine Ratio 22.8 (6-22); Bilirubin Total 0.5 mg/dL (0.2-1.3); Blood Urea Nitrogen 26 mg/dL (7-17); Calcium 9.9 mg/dL (8.4-10.2); Carbon Dioxide 32 mmol/L (22-32); Chloride 100 mmol/L (98-107); Estimated Glomerular Filt Rate 45.9 mL/min (>60); Globulin 3.4 g/dL (1.7-4.1); Glucose 134 mg/dL (80-110); HEMOLYSIS < 15 (0-50); Lipase 96 U/L (23-300); Potassium 4.1 mmol/L (3.4-5.1); Sodium 137 mmol/L (137-145); Total Protein 7.9 g/dL (6.3-8.2)
[2021-11-11 10:02] LABS: Troponin I < 0.012 ng/mL (0.01-0.034)
[2021-11-11] MEDS: SODIUM CHLORIDE 0.9% 1,000 ML 1000 ML IV (10:08)
[2021-11-11 11:27] LABS: COVID19 -Nasal RAPID Negative (Negative)
== END 2021-11-11 12:06 | disposition home or self-care (01) ==
PROVIDERS: Emergency Provider Emergency Medicine; PCP Family Medicine
DX: R42 Dizziness and giddiness (principal); R11.0 Nausea; I45.2 Bifascicular block; Z20.822 Contact with and (suspected) exposure to COVID-19
CPT/HCPCS: 71045; 80053; 81003; 82962; 83690; 84484; 85025; 87635; 93005; 93010; 96360; 96361; 99283; 99284; C9803

== ENCOUNTER → 2021-11-29 08:45 | Outpatient (CLI) | payer MEDICARE, OTHER, SELFPAY ==
--- NOTE | 2021-11-30 14:14 | PM.TREADMILL ---
Cardiac Stress Test Report Referral & Results Date Patient Seen: 11/30/21 Requesting provider: James Beckwith Indication: Chest symptoms, ER visit Rest ECG: Incomplete right bundle branch block, old Procedure Note: Today following both written and verbal informed consent the patient was exercised according to a standard Pritesh protocol patient went for a total of for minutes 31 seconds achieving a maximum heart rate of 133 maximum systolic blood pressure of 160. This is approximately 7.0 METS. Exercise was terminated at this point because of targets were met patient was unable to go any longer Patient was also given Cardiolite through a previously started Hep-Lock IV by the diagnostic imaging staff approximately 1 minute prior to the cessation of exercise. There are no ST-T segment changes identified on the pre-existing minimally abnormal ECG Rare PAC and PVC Function aerobic impairment off scale due to age but estimate at -20% on the sedentary scale or 120% of normal Impression: No ECG evidence of ischemia, somewhat limited by baseline abnormalities on ECG Excellent exercise capacity Please see perfusion imaging report as well Please note: Actual ECG tracings can be found in the PACS system.
--- NOTE | 2021-11-30 18:31 | DI.NM.S_ITS ---
DATE OF SERVICE: 11/29/2021 PROCEDURE: Exercise perfusion study. INDICATION: Lightheadedness with underlying hypertension, hyperlipidemia, right bundle branch block, and left anterior fascicular block. RADIOPHARMACEUTICAL: 24.2 millicurie technetium-99m Myoview Myoview IV was injected at stress and 25.2 millicurie technetium-99m Myoview IV was injected at rest. CARDIAC STRESS: The patient underwent exercise perfusion study under the supervision of an attending staff. She walked on Pritesh protocol for 4 minutes and 31 seconds, achieved 95 percent of target heart rate. Baseline blood pressure 122/82 mmHg. Peak blood pressure 160/80 mmHg. The patient achieved 7 METs of workload. Functional aerobic impairment positive 5 percent. No anginal symptoms. The patient was unable to continue on the treadmill, was target heart rate METS. Baseline rhythm was sinus with right bundle branch block and left anterior fascicular block. During stress, no convincing ischemic changes seen. Rare PACs or PVCs. No significant sustained new arrhythmias. RAW DATA: There is adequate myocardial uptake. GATED STUDY: Resting LV ejection fraction 84 and stress LV ejection fraction 94 percent. Resting end-diastolic volume 58 mL. TID ratio 0.72, which is within normal limits. Lung/heart ratio 0.29, which is within normal limits. MYOCARDIAL PERFUSION SCAN: Stress supine, resting supine and stress prone images were compared to each other. Stress supine and resting supine images revealed small size, mildly decreased perfusion of distal anterior wall and distal anteroseptum, which got completely resolved during stress prone images, suggestive of breast tissue attenuation artifact. No convincing ischemia or infarction. CONCLUSION: This is a normal myocardial perfusion study with evidence of breast tissue attenuation artifact, which got resolved during stress prone images. Diminished exercise tolerance. No anginal symptoms. Baseline right bundle branch block and left anterior fascicular block. Preserved left ventricular function. No significant new sustained arrhythmias. Overall low-risk myocardial perfusion scan. Misa Slater - REYNALDO/janice/matt doc#: [id number]/job#: [id number] dd: 11/30/2021 17:11:00 dt: 11/30/2021 17:35:00 DICTATING MD/COPIES TO: Lorne Vieira MD COPIES MNE: STEPHEN;
== END ==
PROVIDERS: PCP Family Medicine; Referring Provider Family Medicine; Visit Provider Family Medicine
DX: I45.10 Unspecified right bundle-branch block (principal); I44.4 Left anterior fascicular block; R42 Dizziness and giddiness; I10 Essential (primary) hypertension; E78.5 Hyperlipidemia, unspecified; Z20.822 Contact with and (suspected) exposure to COVID-19
CPT/HCPCS: 78452; 87635; 93016; 93017; 93018; C9803; A9502

== ENCOUNTER → 2021-11-29 10:20 | Outpatient (CLI) | payer MEDICARE, OTHER, SELFPAY ==
[2021-11-29 13:29] LABS: COVID19 -Nasal RAPID Negative (Negative)
== END ==
PROVIDERS: PCP Family Medicine; Visit Provider Family Medicine Sleep Medicine
DX: Z20.822 Contact with and (suspected) exposure to COVID-19 (principal)
CPT/HCPCS: 87635

== ENCOUNTER → 2021-12-04 15:11 | Outpatient (CLI) | payer MEDICARE, OTHER, SELFPAY ==
--- NOTE | 2021-12-19 08:03 | PM.CARDMON.1 ---
Equipment Worker Report Referral & Results Date Patient Seen: 12/04/21 Requesting provider: James Beckwith Indication: Right bundle branch block Duration of monitoring (days): 7 Diary information: There were 2 patient triggered events both associated with sinus rhythm and PACs Data: Minimum heart rate identified was 47 beats per minute at 05:07 on 12/06/2021 Maximum sinus heart rate was 116 beats per minute at 04:48 on 12/06/2021 Maximum overall heart rate was 174 beats per minute at 17:52 on 12/06/2021 during a run of SVT Approximately 2.9% of identified beats were supraventricular ectopic in origin which would classify them as occasional Less than 1% of identified beats were ventricular ectopic in origin which would classify them as rare There were 4 runs of SVT the fastest run noted above was also the longest at 7 beats Impression: 6+ day alarm security or surveillance monitor demonstrating occasional PACs and rare PVCs and very rare, very brief runs of SVT
== END ==
PROVIDERS: PCP Family Medicine; Referring Provider Family Medicine; Visit Provider Family Medicine
DX: I45.10 Unspecified right bundle-branch block (principal)
CPT/HCPCS: 93242; 93244

== ENCOUNTER → 2021-12-14 08:00 | Outpatient (CLI) | payer MEDICARE, OTHER, SELFPAY ==
--- NOTE | 2021-12-14 08:02 | DI.ECHO.S_ITS ---
[facility]---------+ [facility] +---------+ : : [address] : : : : [id number] : : : : Phone: [phone] Echocardiogram Report + + :Name: HERIBERTO KATZ Study Date: 12/14/2021 Height: 61 in : :[facility] ReadingLocation: Weight: 140 lb : : Gender: Female BSA: 1.6 m2 : :: 1940 Age: 81 yrs BP: 148/70 mmHg: :Reason For Study: RBBB : : Performed By: Ozzie Shabazz : :Referring: RAJINDER HAYWARD : + + Interpretation Summary The ejection fraction is estimated to be 55-60%. There is mild tricuspid regurgitation. The right ventricular systolic pressure is estimated to be at least 30 mmHg based on an estimated right atrial pressure of 3 mm Hg. Procedure: A two-dimensional transthoracic echocardiogram with color flow and Doppler was performed. The study quality was technically good. Comparison is made with the echocardiogram of 12/09/18. The patient was in normal sinus rhythm during the exam. Left Ventricle: The left ventricle is normal in size. There is normal left ventricular wall thickness. The ejection fraction is estimated to be 55-60%. There are no focal wall motion abnormalities. Right Ventricle: The right ventricle is normal in size and function. Atria: Both atria are normal in size. There is no Doppler evidence for an atrial septal defect. Mitral Valve: The mitral valve is normal in structure and function. There is trace mitral regurgitation. Aortic Valve: The aortic valve is trileaflet. The aortic valve opens well. No aortic regurgitation is present. Tricuspid Valve: The tricuspid valve is normal in structure and function. There is mild tricuspid regurgitation. The right ventricular systolic pressure is estimated to be at least 30 mmHg based on an estimated right atrial pressure of 3 mm Hg. Pulmonic Valve: The pulmonic valve is normal in structure and function. There is trace pulmonic regurgitation. Great Vessels: The aortic root is normal size. The dimensions of the ascending aorta are normal. The pulmonary artery is normal size. The IVC is of normal diameter and collapses greater than 50% with a sniff. This suggests a low right atrial pressure of 3 mm Hg. Pericardium/ Pleura There is no pericardial effusion. There is no pleural effusion. MMode/2D Measurements & Calculations LVIDd: 3.5 cm LVOT diam: 2.0 cm LVIDs: 2.3 cm Ao root diam: 2.6 cm FS: 34.6 % asc Aorta Diam: 2.9 cm EPSS: 0.44 cm Ao Arch Diam (Prox Trans): 2.2 cm IVSd: 0.68 cm LVPWd: 0.70 cm LV heredia. diameter/BSA (cm/m^2): 2.1 LV sys. diameter/BSA (cm/m^2): 1.4 LA A2 area: 14.7 cm2 RA long axis: 4.2 cm LA A4 area: 14.8 cm2 RA area: 11.9 cm2 LA length (vol): 5.0 cm RA vol: 28.9 ml LA vol: 36.8 ml RA : 17.8 ml/m2 LA vol index: 22.7 ml/m2 IVC diam: 1.4 cm TAPSE: 2.1 cm Doppler Measurements & Calculations Ao V2 max: 150.9 cm/sec LVOT Max Braden: 113.0 cm/sec Ao V2 mean: 114.7 cm/sec LV V1 max P.1 mmHg Ao max P.1 mmHg LV V1 VTI: 20.5 cm Ao mean P.6 mmHg EDWIN(I,D): 2.0 cm2 Ao V2 VTI: 31.0 cm EDWIN(V,D): 2.3 cm2 sev ratio: 0.66 EDWIN indexed to BSA (cm^2/m^2): 1.2 MV E max braden: 56.3 cm/sec TR max braden: 260.6 cm/sec MV A max braden: 89.5 cm/sec TR max P.2 mmHg MV E/A: 0.63 PA V2 max: 69.8 cm/sec Med Peak E' Braden: 3.1 cm/sec PA V2 mean: 54.5 cm/sec E/E' med: 18.4 PA mean P.2 mmHg Lat Peak E' Braden: 4.1 cm/sec PA pr(Accel): 41.3 mmHg E/E' lat: 13.8 E/e' average: 16.1 MV dec time: 0.25 sec SV(LVESTEFANIA): 61.6 ml Reading Physician:09:54 AM
== END ==
PROVIDERS: PCP Family Medicine; Referring Provider Family Medicine; Visit Provider Family Medicine
DX: I07.1 Rheumatic tricuspid insufficiency (principal); I45.10 Unspecified right bundle-branch block
CPT/HCPCS: 93306

== ENCOUNTER → 2022-01-11 07:15 | Outpatient (CLI) | payer MEDICARE, OTHER, SELFPAY ==
[2022-01-11 08:21] LABS: BUN Creatinine Ratio 23.5 (6-22); Blood Urea Nitrogen 27 mg/dL (7-17); Calcium 9.9 mg/dL (8.4-10.2); Carbon Dioxide 28 mmol/L (22-32); Chloride 101 mmol/L (98-107); Estimated Glomerular Filt Rate 48 mL/min (>60); Glucose 105 mg/dL (80-110); HEMOLYSIS < 15 (0-50); Potassium 4.4 mmol/L (3.4-5.1); Sodium 139 mmol/L (137-145)
== END ==
PROVIDERS: PCP Family Medicine; Referring Provider Family Medicine; Visit Provider Family Medicine
DX: N18.9 Chronic kidney disease, unspecified (principal)
CPT/HCPCS: 36415; 80048

== ENCOUNTER → 2022-03-27 14:17 | Outpatient (CLI) | payer MEDICARE, OTHER, SELFPAY ==
[2022-03-27 15:46] LABS: Vitamin B12 > 1000 pg/mL (239-931)
== END ==
PROVIDERS: PCP Family Medicine; Referring Provider Physician Assistant; Visit Provider Physician Assistant
DX: R26.89 Other abnormalities of gait and mobility (principal)
CPT/HCPCS: 36415; 82607

== ENCOUNTER → 2022-04-20 11:05 | Outpatient (CLI) | payer MEDICARE, OTHER, SELFPAY | PROVIDERS: PCP Family Medicine; Visit Provider Nurse Practitioner Family | DX: L02.91 Cutaneous abscess, unspecified (principal) | CPT/HCPCS: 87070; 87205 ==

== ENCOUNTER → 2022-07-11 18:35 | Outpatient (CLI) | payer MEDICARE, OTHER, SELFPAY ==
--- NOTE | 2022-07-11 18:37 | DI.MRI.S_ITS ---
PROCEDURE: MR STROKE Pre- and post-contrast brain MRI, non-contrast brain MR angiogram, pre- and postcontrast neck MR angiogram INDICATIONS: vison and blance difficulties ?? tia vs cva TECHNIQUE: Brain: Noncontrast axial T1 spin echo, axial T2 fast spin echo, sagittal and axial FLAIR, coronal T2 fast spin echo, axial gradient echo, axial diffusion and ADC through the brain. After the administration of contrast, axial 3D VIBE of the cranial vasculature and brain. Brain MRA: Non-contrast 3-D time of flight MR angiogram, with multiple olzfggv-btpvadjxo-tctnzkzuan (MIP) reformats performed. Neck MRA: Axial and sagittal TruFISP through the neck. Coronal dynamic MR angiogram during administration of contrast in the arterial and venous phases, with 3-dimenstional zjgtjvd-nlyizinzw-xpkbydsblk (MIP) reformats constructed from subtraction images. COMPARISON: [facility], , MR STROKE, 09/13/2020, 9:41. FINDINGS: Image quality: Excellent. BRAIN: The ventricular system and cortical sulci demonstrate atrophy, consistent for the patient's stated age. There are areas of increased T2/FLAIR signal intensity within the periventricular and subcortical white matter. There is no acute intra-or extra axial fluid collection. No acute hemorrhage, mass lesion or midline shift. Brainstem is unremarkable. There are no areas of restricted diffusion. Globes are symmetrical. Sinuses demonstrate opacification of the left maxillary sinus with scattered mucosal thickening in the ethmoid air cells. Osseous structures are intact. . BRAIN MR ANGIOGRAM: Anterior circulation: Intracranial internal carotid arteries are normal in size and enhancement. The flow within the paired anterior cerebral arteries is normal and symmetric. The flow within the middle cerebral arteries is normal and symmetric. The anterior communicating artery is seen. No stenoses, occlusions, or aneurysms. Posterior circulation: There is a left posterior vertebral artery dominance. The visualized portions of the vertebral arteries demonstrate normal caliber, and join to form a normal appearing basilar artery. The flow within the posterior cerebral arteries is normal and symmetric. No stenoses, occlusions, or aneurysms. NECK MR ANGIOGRAM: Carotids: Great vessels demonstrate a conventional anatomy as they arise from the aortic arch. The origins of the common carotid arteries appear patent. The calibers and courses of both common carotid arteries are normal. The bifurcation regions appear normal bilaterally. The internal carotid arteries demonstrate normal course and caliber. Posterior circulation: The origins of the vertebral arteries appear patent. More superior portions of both vertebral arteries demonstrate normal course and caliber, and join to form a normal appearing basilar artery. Miscellaneous: Subclavian arteries appear patent. Pre-contrast images through the neck show no soft tissue abnormalities. IMPRESSION: 1. No acute intracranial process. No acute ischemia. 2. Moderate atrophy and chronic microvascular ischemic changes. 3. No areas of hemodynamically significant stenosis, vascular occlusion or aneurysmal dilation within the anterior circulation. 4. No areas of hemodynamically significant stenosis, vascular occlusion or aneurysmal dilation within the posterior circulation. 5. No areas of hemodynamically significant stenosis, vascular occlusion or aneurysmal dilation within the neck vasculature. Dictated by: Veronica Rose M.D. on 07/12/2022 at 6:48 Approved by: Veronica Rose M.D. on 07/12/2022 at 6:51
== END ==
PROVIDERS: PCP Family Medicine; Referring Provider Family Medicine; Visit Provider Family Medicine
DX: H54.7 Unspecified visual loss (principal); R26.89 Other abnormalities of gait and mobility; I10 Essential (primary) hypertension; E78.5 Hyperlipidemia, unspecified
CPT/HCPCS: 70548; 70553; A9579

== ENCOUNTER 2022-08-07 08:04 | Emergency (ER) | payer MEDICARE, OTHER, SELFPAY ==
[2022-08-07] VITALS (15 sets, daily range): BP systolic 135–171; BP diastolic 66–100; PULSE 63–72; RESP 14–27; TEMP 36.3–36.6; O2SAT 95–99; BMI 26.2
--- NOTE | 2022-08-07 08:15 | ED.HEATRA ---
HPI - Head Injury General Chief complaint: Fall Stated complaint: fell hit head has a gash Time Seen by Provider: 08/07/22 08:13 Source: patient Limitations: no limitations History of Present Illness HPI Narrative: This is an 82-year-old female with history of hypertension, loss of vision in her with complications from a prior eye surgery who is currently on atropine, ofloxacin and prednisolone drops. Patient states today she was standing in her kitchen when she had a brief loss of consciousness she felt it very slightly before and then woke up on the floor. She has a small laceration posterior scalp. She denies any headaches, no neck or back pain, no preceding symptoms other than a sudden flash across her vision. Patient denies chest pain or shortness of breath. No nausea or vomiting. She had a hard stool today after taking stool softeners. Patient had been taking hydromorphone for her eye pain several days ago. Patient denies any dysuria urgency or frequency. She does not believe she is had any black or bloody stools. She denies numbness, tingling or weakness. No difficulty with movement or ambulation. Patient states the vision in her eye has been improving over the past 2 days. 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 She denies any fevers or chills, no cold cough or congestion. Patient has had a prior lumbar fusion at L4-L5 level, eye surgery and denies any cardiac or other interventions, no tobacco, no alcohol, no illicit. Patient states she is up today on her immunizations including her tetanus. Related Data Home Medications Medication Instructions Recorded Confirmed loratadine 10 mg tablet 10 mg PO DAILY 03/27/22 03/27/22 Previous Rx's Medication Instructions Recorded hydrochlorothiazide 25 mg tablet 25 mg PO QDAY #90 tabs 05/11/21 temazepam 15 mg capsule 15 mg PO BEDTIME PRN sleep #30 caps 07/24/21 meclizine 25 mg tablet 25 mg PO TID PRN dizziness #10 tabs 10/26/21 valsartan 160 mg tablet 160 mg PO BID #180 tabs 11/27/21 lorazepam 0.5 mg tablet 0.5 mg PO BEDTIME PRN restless 06/08/22 leg(s) #20 tabs amoxicillin 875 mg-potassium 1 tab PO Q12H 10 days #20 tabs 08/07/22 clavulanate 125 mg tablet Allergies Allergy/AdvReac Type Severity Reaction Status Date / Time Vcehcjl-FVR-HlP Reductase Allergy Severe 'SWOLLEN Verified 08/07/22 08:22 Inhibitor LIPS,TONGUE,AIRWAY [Knemqsl-Kva-Uuk Reductase INVOLVED Inhibitor] codeine [CODEINE] Allergy Mild N&V Verified 08/07/22 08:22 fentanyl [FENTANYL] Allergy Mild N&V Verified 08/07/22 08:22 naproxen [NAPROXEN] Allergy Mild HEADACHE Verified 08/07/22 08:22 Sulfa (Sulfonamide Allergy Mild HIVES Verified 08/07/22 08:22 Antibiotics) [SULFA (SULFONAMIDE ANTIBIOTICS)] BETA HADLEY EYE GTTS Allergy Mild AFFECTED Uncoded 08/07/22 08:22 CLIMBING ABILITY Review of Systems Review of Systems ROS Unobtainable: All systems reviewed & are unremarkable except as noted in HPI and below Patient History Medical History Abnormal chest xray Actinic keratosis Bilateral cataracts (2012) Chicken pox CTS (carpal tunnel syndrome) (1991) Glaucoma (1984) Herpes Hyperlipidemia (2001) Hypertension (1999) Insulin resistance Lumbar spine pain Measles Melanoma of thigh (1997) MRSA infection (2002) Mumps Osteitis pubis Osteoarthritis Pain of left sacroiliac joint Persistent cough for 3 weeks or longer Recurrent sinusitis Right shoulder pain RLS (restless legs syndrome) (1994) Rubella Skin cancer Tuberculosis Surgical History Anesthesia History of shoulder surgery (2004) S/P ACL reconstruction (2003) S/P total abdominal hysterectomy and bilateral salpingo-oophorectomy (1967) Status post laminectomy (2012) Status post laser cataract surgery of both eyes (2012) Family History Brother Age: 84 Essential hypertension High cholesterol Father Essential hypertension Parkinson's disease Mother Essential hypertension Osteoporosis Congestive heart failure Social History Smoking Status: Never smoker alcohol intake: current substance use type: does not use Smoking Status: Never smoker alcohol intake frequency: 0-2 drinks per day Substance Use Type: does not use Exam Narrative Exam Narrative: GEN: Patient appears in mild distress. HEAD: Patient has a semi circular laceration posterior parietal scalp that is 2.1 cm in length, no raccoon/Wyatt sign. NECK: Nontender, painless range of motion, trachea midline Negative for Nexus criteria, there is no midline line tenderness, distracting injury, altered mental status, neuro deficit, recent EtOH. EYES: PERRLA, EOMI ENT: External inspection normal, trachea is midline, TM's are normal no hemotypanum, Nares are clear, no septal hematoma, no dental or oral injury, airway is normal and with normal occlusion, No bony tenderness RESP: Chest is nontender and has symmetric movement, no ecchymosis, breath sounds are normal no crackles, wheezes or rales CVS: Heart sounds are normal, no murmur noted, No JVD. ABG/GI: Nontender, soft, normal bowel sounds, no distention, no organomegaly, pelvic rock is negative NEURO: Oriented AOx3, neuro is grossly intact, sensation and motor is normal all 4 extremities moving, cranial nerves II through XII are intact, GCS is 15 PSYCH: Normal mood and affect SKIN: Intact, warm and dry, no crepitus and without decubitus BACK: No CVA tenderness, no vertebral tenderness, no step-off's, no crepitus EXT: Atraumatic, hips are nontender, no pedal edema, normal color and temperature, normal range of motion of extremities with normal tendon exam, 2+ pulses in all four extremities Initial Vital Signs Initial Vital Signs: Vital Signs Pulse Rate 72 08/07/22 08:10 Pulse Oximetry 96 08/07/22 08:10 Procedures Laceration Repair Laceration 1: Time of procedure: 10:52 Site: scalp Size (cm): 2.3 Description: irregular and clean Depth: simple, single layer Pre-repair: wound explored, irrigated extensively and deep structures intact Skin layer closed with: cesar Number of sutures: 4 Scores GCS Amna coma scale eye opening: Spontaneous Charlotte coma scale verbal response: Orientated Amna coma scale motor response: Obey commands Amna coma scale total score: 15 Course Orders Ordered: Discontinued Medications Lidocaine/Prilocaine (Lidocaine/Prilocaine 30 Gm) 1 applic TOP NOW ONE Stop: 08/07/22 08:35 Last Admin: 08/07/22 09:45 Dose: 1 applic Documented By: KAILA Vital Signs Vital signs: Vital Signs - 8 hr 08/07/22 08:16 08/07/22 08:17 Temperature 97.9 F 97.4 F L Pulse Rate 69 69 Respiratory Rate 18 Blood Pressure 156/74 H 156/74 H Pulse Oximetry 99 99 Oxygen Delivery Method Room Air Room Air MDM - Head Injury Lab Data Result diagrams: 08/07/22 08:30 08/07/22 08:30 Labs: Lab Results 08/07/22 08/07/22 08/07/22 Range/Units 08:30 08:30 08:30 WBC 7.2 (4.5-11.0) X10^3/uL RBC 4.21 (4.0-5.2) X10^6/uL Hgb 12.1 (12.0-16.0) g/dL Hct 36.7 (36-46) % MCV 87.2 (80-100) fL MCH 28.7 (26-34) PG MCHC 32.9 (30-36) % RDW 13.9 (11.6-14.8) % Plt Count 339 (150-400) X10^3/uL Neut % (Auto) 56.8 (50-75) % Lymph % (Auto) 30.5 (25-40) % Williamson % (Auto) 7.4 (3-14) % Eos % (Auto) 3.8 (2-4) % Baso % (Auto) 1.5 (0-2) % Neut # (Auto) 4100 (7022-0698) /uL Lymph # (Auto) 2200 (0023-9262) /uL Williamson # (Auto) 500 (0-900) /uL Eos # (Auto) 300 (0-450) /uL Baso # (Auto) 100 (0-100) /uL D-Dimer 1031 H (<500) ng/ml Sodium 133 L (137-145) mmol/L Potassium 4.0 (3.4-5.1) mmol/L Chloride 94 L (98-107) mmol/L Carbon Dioxide 27 (22-32) mmol/L BUN 29 H (7-17) mg/dL Creatinine 0.99 (0.52-1.04) mg/dL Estimated GFR 57 L (>60) mL/min BUN/Creatinine Ratio 29.3 H (6-22) Glucose 115 H (80-110) mg/dL Calcium 9.4 (8.4-10.2) mg/dL Magnesium 1.9 (1.6-2.3) mg/dL Total Bilirubin 0.4 (0.2-1.3) mg/dL AST 22 (14-36) IU/L ALT 18 (<35) IU/L Alkaline Phosphatase 64 (38-126) U/L Total Creatine Kinase 60 (30-135) U/L CK-MB (CK-2) TNP CK-MB (CK-2) Rel Index TNP Troponin I < 0.012 (0.01-0.034) ng/mL NT-Pro-B Natriuret Pep (<450) pg/mL Total Protein 7.5 (6.3-8.2) g/dL Albumin 4.3 (3.5-5.0) g/dL Globulin 3.2 (1.7-4.1) g/dL Albumin/Globulin Ratio 1.3 (1.0-2.8) Lipase 93 (23-300) U/L SARS-CoV-2 (PCR) (Negative) 08/07/22 08/07/22 Range/Units 08:30 09:03 WBC (4.5-11.0) X10^3/uL RBC (4.0-5.2) X10^6/uL Hgb (12.0-16.0) g/dL Hct (36-46) % MCV (80-100) fL MCH (26-34) PG MCHC (30-36) % RDW (11.6-14.8) % Plt Count (150-400) X10^3/uL Neut % (Auto) (50-75) % Lymph % (Auto) (25-40) % Williamson % (Auto) (3-14) % Eos % (Auto) (2-4) % Baso % (Auto) (0-2) % Neut # (Auto) (8807-1433) /uL Lymph # (Auto) (7225-0531) /uL Williamson # (Auto) (0-900) /uL Eos # (Auto) (0-450) /uL Baso # (Auto) (0-100) /uL D-Dimer (<500) ng/ml Sodium (137-145) mmol/L Potassium (3.4-5.1) mmol/L Chloride (98-107) mmol/L Carbon Dioxide (22-32) mmol/L BUN (7-17) mg/dL Creatinine (0.52-1.04) mg/dL Estimated GFR (>60) mL/min BUN/Creatinine Ratio (6-22) Glucose (80-110) mg/dL Calcium (8.4-10.2) mg/dL Magnesium (1.6-2.3) mg/dL Total Bilirubin (0.2-1.3) mg/dL AST (14-36) IU/L ALT (<35) IU/L Alkaline Phosphatase (38-126) U/L Total Creatine Kinase (30-135) U/L CK-MB (CK-2) CK-MB (CK-2) Rel Index Troponin I (0.01-0.034) ng/mL NT-Pro-B Natriuret Pep 43 (<450) pg/mL Total Protein (6.3-8.2) g/dL Albumin (3.5-5.0) g/dL Globulin (1.7-4.1) g/dL Albumin/Globulin Ratio (1.0-2.8) Lipase (23-300) U/L SARS-CoV-2 (PCR) Negative (Negative) Imaging Data CT scan - head: Radiologist's Impression: [place] [address] CT Scan Report Signed Patient: Misa Slater MR#: [id number] : 1940 Acct:[id number] Age/Sex: 82 / F Date of Service: 08/07/22 Loc: ED Accession Number: [id number] ?? Procedure: CT head/brain wo con Ordering Provider: Ella Jean D.O. PROCEDURE:? CT HEAD/BRAIN WO CON ? INDICATIONS:? syncope, head lac ? TECHNIQUE:? Noncontrast 4.5 mm thick angled axial sections acquired from the foramen magnum to the vertex, with coronal and sagittal reformats.? For radiation dose reduction, the following was used:? automated exposure control, adjustment of mA and/or kV according to patient size.? ? COMPARISON:? [facility], MR, MR STROKE, 09/13/2020, 9:41.? [facility], MR, MR STROKE, 07/11/2022, 18:56.? [facility], CT, CT HEAD/BRAIN WO CON, 09/11/2020, 15:56. ? FINDINGS:? Image quality:? Excellent.? ? CSF spaces:? Basal cisterns are patent.? No extra-axial fluid collections.? The ventricles are symmetric in size and shape.? ? Brain:? No intracranial bleeds or masses.? There is cerebral volume loss for age, with resultant ventricular and sulcal prominence.? There are periventricular and deep white matter chronic small vessel ischemic changes.? There is intracranial internal carotid artery atherosclerosis.? ? Skull and face:? Calvarium and visualized facial bones appear intact, without suspicious lesions.? There is parietal soft tissue contusion and subscalp hematoma. ? Sinuses:? Opacification of the left maxillary sinus, which is partially visualized.? There is bulging of the medial wall of the maxillary sinus.? The mastoids are clear.? ? IMPRESSION:? ? 1. No acute intracranial abnormalities. 2. Cerebral volume loss and chronic microvascular ischemic changes. 3. Soft tissue contusion in the parietal scalp with a small hematoma.? 4. Opacification of the left maxillary sinus.? There is bulging of the medial wall of the maxillary sinus.? The findings most likely caused by chronic sinusitis with inspissated material in the sinus.? A mass is, however, cannot be excluded.? The maxillary sinuses are only partially visualized.? If clinically indicated, sinus CT can be obtained. ? ? Dictated by: Katarina Mascorro M.D. on 08/07/2022 at 8:53 ? ? Approved by: Katarina Mascorro M.D. on 08/07/2022 at 8:58?? Chest x-ray: Radiologist's Impression: Close Chest CTA (Signed) Scottie Stevenson - 08/07/[address] (Signed) Katarina Mascorro - 08/07/22 Chest X-Ray (Signed) James Bergeron - 08/07/22 Brain MRI (Signed) Veronica Rose - 07/11/22 Echocardiogram Ultrasound (Signed) Wagner Coyle - 12/14/21 Radiology Report (Cancelled) Lorne Vieira - 11/30/21 Myocardial Perfusion Scan Nuc Med (Signed) Lorne Vieira - 11/30/21 EKG Rpt. 11/11/21 Chest X-Ray (Signed) Brian Vee - 11/11/21 Chest X-Ray (Signed) Rose,Veronica - 10/02/21 Hip X-Ray (Signed) Cecilia Swanson - 08/23/21 Chest X-Ray (Signed) Alonso Mascorro - 08/23/21 Brain MRI (Signed) Veronica Rose - 09/13/[address] (Signed) Call,Jaylon - 09/11/20 Chest X-Ray (Signed) Call,Jaylon - 09/11/[address] (Signed) Alonso Mascorro - 09/22/19 Lumbar Spine X-Ray (Signed) Alonso Mascorro - 09/22/19 Breast Ultrasound (Signed) Lam Trevizo - 03/24/19 Mammogram Diagnostic (Signed) Marilia Leal - 12/09/18 Echocardiogram Ultrasound (Signed) Yovani Olmstead - 12/09/18 Breast Ultrasound (Signed) Marilia Leal - 12/09/18 Launch?[place] [address] XRay Report Signed Patient: Misa Slater MR#: [id number] : 1940 Acct:[id number] Age/Sex: 82 / F Date of Service: 08/07/22 Loc: ED Accession Number: [id number] ?? Procedure: XR chest 1V Ordering Provider: Ella Jean D.O. PROCEDURE:? XR CHEST 1V ? INDICATIONS:? chest pain ? TECHNIQUE:? One view of the chest was acquired.? ? COMPARISON:? [facility], , XR CHEST 1V, 11/11/2021, 9:55. ? FINDINGS:? ? Surgical changes and devices:? None.? ? Lungs and pleura:? Lungs are clear.? No pleural effusions or pneumothorax.? ? Mediastinum:? Mediastinal contours appear normal.? Heart size is normal.? ? Bones and chest wall:? No suspicious bony lesions.? Overlying soft tissues appear unremarkable.? ? IMPRESSION:? No acute cardiopulmonary process demonstrated radiographically. ? ? Dictated by: James Bergeron M.D. on 08/07/2022 at 10:05 ? ? Approved by: James Bergeron M.D. on 08/07/2022 at 10:06?? CT scan - chest: Radiologist's Impression: [address] [address] [address] Scan Report Signed Patient: Misa Slater MR#: [id number] : 1940 Acct:[id number] Age/Sex: 82 / F Date of Service: 08/07/22 Loc: ED Accession Number: [id number] ?? Procedure: CT angio chest PE protocol Ordering Provider: Ella Jean D.O. PROCEDURE:? CT ANGIO CHEST PE PROTOCOL ? INDICATIONS:? syncope, elevated dimer, arrythmia ? TECHNIQUE:? After the administration of intravenous contrast, 2 mm thick sections acquired from the pulmonary apices to the posterior costophrenic angles.? 3-dimensional maximum intensity projection (MIP) coronal and sagittal reformats were then acquired through the thorax.? For radiation dose reduction, the following was used:? automated exposure control, adjustment of mA and/or kV according to patient size.? ? COMPARISON:? None. ? FINDINGS:? Image quality:? Excellent.? ? Pulmonary arteries:? Pulmonary arteries are normal in size, and demonstrate no intraluminal filling defects to suggest central pulmonary embolism.? ? Lungs and pleura:? There is tree-in-bud nodularity most notably affecting the right middle lobe and lingular portion of the left upper lobe, with some involvement of the basilar portions of the lower lobes.? No airspace consolidation.? There is a 5 mm pulmonary nodule in the right upper lobe on image 93/5.? There is mild bibasilar bronchiectasis.? No pleural effusions or pneumothorax.? Central and peripheral airways are patent.? ? Mediastinum:? Heart size is normal, with small pericardial effusion.? Moderate to severe coronary artery calcifications.? No mediastinal or hilar adenopathy.? Thoracic aorta is normal in caliber and enhancement.? Esophagus is normal in caliber, with small hiatal hernia. ? Bones and chest wall:? No suspicious bony lesions.? Ribs and thoracic spine appear intact throughout.? Thyroid gland is unremarkable as visualized.? No axillary or supraclavicular adenopathy.? Left L2 hemilaminectomy on the lowest image provided. ? Abdomen:? Visualized upper abdominal solid organs appear normal in the early arterial phase of enhancement.? ? IMPRESSION:? ? 1. No evidence acute pulmonary emboli. ? 2. Tree-in-bud nodularity predominantly involving the right middle lobe and lingular portion of left upper lobe, possibly indicating an infectious or inflammatory process. ? 3. Moderate to severe coronary artery calcifications. ? 4. Hiatal hernia.? ? ? Dictated by: Scottie Stevenson M.D. on 08/07/2022 at 9:35 ? ? Approved by: Scottie Stevenson M.D. on 08/07/2022 at 9:51?? ECG Data Attestation: I personally reviewed and interpreted this ECG as follows: Prior ECG tracings: available for review Interpretation: Sinus bradycardia with sinus arrhythmia, right bundle-branch, left anterior fascicular block with rate of 52 IL 168 QRS of 132 and QTC of 431. Has prior from 11/11/2021 that has right bundle-branch block and left anterior fascicular block. Patient's V2 V3 does appear somewhat in terms of QRS complex, patient does not appear to have new elevation or depression noted. MDM Narrative Medical decision making narrative: This is an 82-year-old female with syncopal episode resulting in laceration to posterior scalp, patient is bradycardic with marked sinus arrhythmia does not appear to be dropping beats on EKG or telemetry or have a type 2 block. Patient had head CT, chest x-ray, labs which showed no clear source of symptoms. Patient laceration was repaired with [address] PE protocol was ordered as D-dimer was quite high with the unprovoked syncopal episode. Patient's has tree-in-bud nodularity bilaterally might be infectious versus inflammatory. Patient covered with antibiotic. Discharged home she had a Holter in November but discussed repeating this. Return precautions and wound care discussed. Discharge Plan Departure Patient Disposition: Home Clinical Impression: Syncope, Pulmonary nodule, Pneumonia, Laceration of scalp Instructions: DI for Syncope in Adults (Fainting) Activity Restrictions/Additional Instructions: Please follow-up with your physician, for recheck and Holter monitor or ZIO patch as an outpatient. I would recommend this be repeated even though you had monitor in November. Follow-up with your primary care, urgent care or emergency department for staple removal in 7-10 days. Your workup today does show possible infection versus inflammatory change with tree-in-bud nodularity on the right and left side of your lungs and a 5 mm pulmonary nodule. I would treat you with antibiotics today but this should be followed up for additional workup. Prescription sent to [facility] in [place]. Wound Care: Keep wound(s) clean and dry. Wash daily with soap and water only. Do not use over the counter products (alcohol or peroxide)on the wounds unless instructed by a physician. If wound condition worsens (increased/expanding redness, developing fluid blisters, or worsening pain), either contact your doctor for an urgent re-assessment , or return to the Emergency Department. Return to the Emergency Department for any new or worsening symptoms. Please return for new or worsening symptoms recurrent passing out, new chest pain, shortness of breath, persistent vomiting, new swelling in her extremities or other new or concerning changes. Prescriptions: New amoxicillin-pot clavulanate 875-125 mg tablet 1 tab PO Q12H 10 Days Qty: 20 0RF No Action hydrochlorothiazide 25 mg tablet 25 mg PO QDAY Qty: 90 3RF loratadine 10 mg tablet 10 mg PO DAILY temazepam 15 mg capsule 15 mg PO BEDTIME PRN (Reason: sleep) Qty: 30 1RF meclizine 25 mg tablet 25 mg PO TID PRN (Reason: dizziness) Qty: 10 0RF valsartan 160 mg tablet 160 mg PO BID Qty: 180 3RF lorazepam 0.5 mg tablet 0.5 mg PO BEDTIME PRN (Reason: restless leg(s)) Qty: 20 0RF Rx Instructions: Take one tablet by mouth at bedtime as needed for restless legs Referrals: James Beckwith MD [Primary Care Provider] - Visit Report Forms: Patient Portal/API
--- NOTE | 2022-08-07 08:23 | DI.RAD.S_ITS ---
PROCEDURE: XR CHEST 1V INDICATIONS: chest pain TECHNIQUE: One view of the chest was acquired. COMPARISON: [facility], CR, XR CHEST 1V, 11/11/2021, 9:55. FINDINGS: Surgical changes and devices: None. Lungs and pleura: Lungs are clear. No pleural effusions or pneumothorax. Mediastinum: Mediastinal contours appear normal. Heart size is normal. Bones and chest wall: No suspicious bony lesions. Overlying soft tissues appear unremarkable. IMPRESSION: No acute cardiopulmonary process demonstrated radiographically. Dictated by: James Bergeron M.D. on 08/07/2022 at 10:05 Approved by: James Bergeron M.D. on 08/07/2022 at 10:06
--- NOTE | 2022-08-07 08:30 | DI.CT.S_ITS ---
PROCEDURE: CT HEAD/BRAIN WO CON INDICATIONS: syncope, head lac TECHNIQUE: Noncontrast 4.5 mm thick angled axial sections acquired from the foramen magnum to the vertex, with coronal and sagittal reformats. For radiation dose reduction, the following was used: automated exposure control, adjustment of mA and/or kV according to patient size. COMPARISON: [facility], MR, MR STROKE, 09/13/2020, 9:41. [facility], MR, MR STROKE, 07/11/2022, 18:56. [facility], CT, CT HEAD/BRAIN WO CON, 09/11/2020, 15:56. FINDINGS: Image quality: Excellent. CSF spaces: Basal cisterns are patent. No extra-axial fluid collections. The ventricles are symmetric in size and shape. Brain: No intracranial bleeds or masses. There is cerebral volume loss for age, with resultant ventricular and sulcal prominence. There are periventricular and deep white matter chronic small vessel ischemic changes. There is intracranial internal carotid artery atherosclerosis. Skull and face: Calvarium and visualized facial bones appear intact, without suspicious lesions. There is parietal soft tissue contusion and subscalp hematoma. Sinuses: Opacification of the left maxillary sinus, which is partially visualized. There is bulging of the medial wall of the maxillary sinus. The mastoids are clear. IMPRESSION: 1. No acute intracranial abnormalities. 2. Cerebral volume loss and chronic microvascular ischemic changes. 3. Soft tissue contusion in the parietal scalp with a small hematoma. 4. Opacification of the left maxillary sinus. There is bulging of the medial wall of the maxillary sinus. The findings most likely caused by chronic sinusitis with inspissated material in the sinus. A mass is, however, cannot be excluded. The maxillary sinuses are only partially visualized. If clinically indicated, sinus CT can be obtained. Dictated by: Katarina Mascoror M.D. on 08/07/2022 at 8:53 Approved by: Katarina Mascorro M.D. on 08/07/2022 at 8:58
[2022-08-07 08:48] LABS: Add Manual Diff / Slide Review NO; Basophils Absolute Auto 100 /uL (0-100); Basophils Percent Auto 1.5 % (0-2); Eosinophils Absolute Auto 300 /uL (0-450); Eosinophils Percent Auto 3.8 % (2-4); Hematocrit 36.7 % (36-46); Hemoglobin 12.1 g/dL (12.0-16.0); Lymphocytes Absolute Auto 2200 /uL (1100-4500); Lymphocytes Percent Auto 30.5 % (25-40); Mean Corpuscular HGB Conc 32.9 % (30-36); Mean Corpuscular Hemoglobin 28.7 PG (26-34); Mean Corpuscular Volume 87.2 fL (80-100); Monocytes Absolute Auto 500 /uL (0-900); Monocytes Percent Auto 7.4 % (3-14); Neutrophils Absolute Auto 4100 /uL (1500-7000); Neutrophils Percent Auto 56.8 % (50-75); Platelet Count 339 X10^3/uL (150-400); Red Blood Cell Count 4.21 X10^6/uL (4.0-5.2); Red Cell Distribution Width 13.9 % (11.6-14.8); White Blood Cell Count 7.2 X10^3/uL (4.5-11.0)
--- NOTE | 2022-08-07 08:50 | PC.NURSE ---
earrings removed and placed in specimen cup.
[2022-08-07 08:55] LABS: D Dimer 1031 ng/ml (<500)
[2022-08-07 08:59] LABS: Alanine Aminotransferase 18 IU/L (<35); Albumin 4.3 g/dL (3.5-5.0); Albumin Globulin Ratio 1.3 (1.0-2.8); Alkaline Phosphatase 64 U/L (38-126); Aspartate Aminotransferase 22 IU/L (14-36); BUN Creatinine Ratio 29.3 (6-22); Bilirubin Total 0.4 mg/dL (0.2-1.3); Blood Urea Nitrogen 29 mg/dL (7-17); Calcium 9.4 mg/dL (8.4-10.2); Carbon Dioxide 27 mmol/L (22-32); Chloride 94 mmol/L (98-107); Creatine Kinase 60 U/L (30-135); Estimated Glomerular Filt Rate 57 mL/min (>60); Globulin 3.2 g/dL (1.7-4.1); Glucose 115 mg/dL (80-110); HEMOLYSIS 22 (0-50); Lipase 93 U/L (23-300); Magnesium 1.9 mg/dL (1.6-2.3); Sodium 133 mmol/L (137-145); Total Protein 7.5 g/dL (6.3-8.2)
--- NOTE | 2022-08-07 08:59 | DI.CT.S_ITS ---
PROCEDURE: CT ANGIO CHEST PE PROTOCOL INDICATIONS: syncope, elevated dimer, arrythmia TECHNIQUE: After the administration of intravenous contrast, 2 mm thick sections acquired from the pulmonary apices to the posterior costophrenic angles. 3-dimensional maximum intensity projection (MIP) coronal and sagittal reformats were then acquired through the thorax. For radiation dose reduction, the following was used: automated exposure control, adjustment of mA and/or kV according to patient size. COMPARISON: None. FINDINGS: Image quality: Excellent. Pulmonary arteries: Pulmonary arteries are normal in size, and demonstrate no intraluminal filling defects to suggest central pulmonary embolism. Lungs and pleura: There is tree-in-bud nodularity most notably affecting the right middle lobe and lingular portion of the left upper lobe, with some involvement of the basilar portions of the lower lobes. No airspace consolidation. There is a 5 mm pulmonary nodule in the right upper lobe on image 93/5. There is mild bibasilar bronchiectasis. No pleural effusions or pneumothorax. Central and peripheral airways are patent. Mediastinum: Heart size is normal, with small pericardial effusion. Moderate to severe coronary artery calcifications. No mediastinal or hilar adenopathy. Thoracic aorta is normal in caliber and enhancement. Esophagus is normal in caliber, with small hiatal hernia. Bones and chest wall: No suspicious bony lesions. Ribs and thoracic spine appear intact throughout. Thyroid gland is unremarkable as visualized. No axillary or supraclavicular adenopathy. Left L2 hemilaminectomy on the lowest image provided. Abdomen: Visualized upper abdominal solid organs appear normal in the early arterial phase of enhancement. IMPRESSION: 1. No evidence acute pulmonary emboli. 2. Tree-in-bud nodularity predominantly involving the right middle lobe and lingular portion of left upper lobe, possibly indicating an infectious or inflammatory process. 3. Moderate to severe coronary artery calcifications. 4. Hiatal hernia. Dictated by: Scottie Stevenson M.D. on 08/07/2022 at 9:35 Approved by: Scottie Stevenson M.D. on 08/07/2022 at 9:51
[2022-08-07 09:08] LABS: NT-proBNP (BNP-Adult 18+) 43 pg/mL (<450)
[2022-08-07 09:10] LABS: Troponin I < 0.012 ng/mL (0.01-0.034)
[2022-08-07 09:36] LABS: COVID19 -Nasal RAPID Negative (Negative)
[2022-08-07] MEDS: LIDOCAINE/PRILOCAINE 30 GM 1 APPLIC TOP (09:45)
== END 2022-08-07 11:18 | disposition home or self-care (01) ==
PROVIDERS: Emergency Provider Emergency Medicine; PCP Family Medicine
DX: R55 Syncope and collapse (principal); R91.1 Solitary pulmonary nodule; J18.9 Pneumonia, unspecified organism; S01.01XA Laceration without foreign body of scalp, initial encounter; R00.1 Bradycardia, unspecified; Z20.822 Contact with and (suspected) exposure to COVID-19
CPT/HCPCS: 12001; 36415; 70450; 71045; 71275; 80053; 82550; 83690; 83735; 83880; 84484; 85025; 85379; 87635; 93005; 99284; C9803; Q9967

== ENCOUNTER 2022-10-14 08:33 | Emergency (ER) | payer MEDICARE, OTHER, SELFPAY ==
[2022-10-14] VITALS (15 sets, daily range): BP systolic 118–166; BP diastolic 63–86; PULSE 61–75; RESP 14–22; TEMP 36.6; O2SAT 97–99; BMI 26.2
--- NOTE | 2022-10-14 08:57 | DI.RAD.S_ITS ---
PROCEDURE: XR CHEST 1V INDICATIONS: syncope TECHNIQUE: One view of the chest was acquired. COMPARISON: [facility], CR, XR CHEST 1V, 08/07/2022, 8:32. FINDINGS: Surgical changes and devices: There is prior right shoulder arthroplasty. Lungs and pleura: Lungs are clear. No pleural effusions or pneumothorax. Mediastinum: Mildly tortuous thoracic aorta is again seen. Heart size is normal. Bones and chest wall: No suspicious bony lesions. Overlying soft tissues appear unremarkable. IMPRESSION: No acute cardiopulmonary pathology. Dictated by: Theo Junior M.D. on 10/14/2022 at 9:27 Approved by: Theo Junior M.D. on 10/14/2022 at 9:28
[2022-10-14 09:10] LABS: Add Manual Diff / Slide Review NO; Basophils Absolute Auto 400 /uL (0-100); Basophils Percent Auto 4.4 % (0-2); Eosinophils Absolute Auto 300 /uL (0-450); Eosinophils Percent Auto 3.4 % (2-4); Hematocrit 37.8 % (36-46); Hemoglobin 12.7 g/dL (12.0-16.0); Lymphocytes Absolute Auto 1800 /uL (1100-4500); Mean Corpuscular HGB Conc 33.5 % (30-36); Mean Corpuscular Hemoglobin 28.9 PG (26-34); Mean Corpuscular Volume 86.2 fL (80-100); Monocytes Absolute Auto 500 /uL (0-900); Monocytes Percent Auto 5.7 % (3-14); Neutrophils Absolute Auto 5200 /uL (1500-7000); Neutrophils Percent Auto 64.5 % (50-75); Platelet Count 308 X10^3/uL (150-400); Red Blood Cell Count 4.38 X10^6/uL (4.0-5.2); Red Cell Distribution Width 15.3 % (11.6-14.8); White Blood Cell Count 8.1 X10^3/uL (4.5-11.0)
[2022-10-14] MEDS: SODIUM CHLORIDE 0.9% 1,000 ML 1000 ML IV (09:11)
[2022-10-14 09:12] LABS: INR 1.1 (0.9-1.3); Prothrombin Time 12.2 SECONDS (10.1-12.7)
[2022-10-14 09:13] LABS: D Dimer 603 ng/ml (<500)
[2022-10-14 09:14] LABS: PTT Partial Thromboplastin Tim 29 SECONDS (26-36)
[2022-10-14 09:16] LABS: Alanine Aminotransferase 20 IU/L (<35); Albumin 4.2 g/dL (3.5-5.0); Albumin Globulin Ratio 1.2 (1.0-2.8); Alkaline Phosphatase 75 U/L (38-126); Aspartate Aminotransferase 22 IU/L (14-36); BUN Creatinine Ratio 24.5 (6-22); Bilirubin Total 0.5 mg/dL (0.2-1.3); Blood Urea Nitrogen 26 mg/dL (7-17); Calcium 9.4 mg/dL (8.4-10.2); Carbon Dioxide 25 mmol/L (22-32); Chloride 103 mmol/L (98-107); Creatine Kinase 48 U/L (30-135); Estimated Glomerular Filt Rate 53 mL/min (>60); Globulin 3.4 g/dL (1.7-4.1); Glucose 125 mg/dL (80-110); HEMOLYSIS < 15 (0-50); Lipase 244 U/L (23-300); Potassium 3.8 mmol/L (3.4-5.1); Sodium 140 mmol/L (137-145); Total Protein 7.6 g/dL (6.3-8.2)
[2022-10-14 09:27] LABS: Troponin I < 0.012 ng/mL (0.01-0.034)
[2022-10-14 09:33] LABS: NT-proBNP (BNP-Adult 18+) 185 pg/mL (<450)
--- NOTE | 2022-10-14 09:37 | ED.SYNCOPE ---
HPI - Syncope General Chief Complaint: Weakness Stated Complaint: SOB/Lightheaded/Chest tight/passed out T-1 seconds Time Seen by Provider: 10/14/22 08:57 Source: patient Mode of arrival: Ambulatory Limitations: no limitations History of Present Illness HPI narrative: This is an 82 year old female with history of hypertension, patient currently on valsartan and HCTZ is her only medications. Patient states she has had episodes of lightheadedness and she describes as a niacin jasmine without the warmth that have been intermittent but increasing in frequency and intensity for the past several months. She had a syncopal episode in July was seen here, followed up with primary care she did not have Holter monitor at that time but has been referred to electrophysiology and has not appointment with Dr. Castaneda cardiac EP on October 25. Patient presents today as yesterday in the car she states she got lightheaded and had a brief syncopal episode she describes a couple seconds. She was not driving she was a passenger but was witnessed she returned to normal consciousness very quickly. She states with these episodes typically get a rash all over she does not feel warm but will feel lightheaded. She feels like they are becoming a little bit more frequent. They do not seem to be positional in any way. She denies headaches, no chest pain, no shortness of breath. No nausea or vomiting, no swelling, no incontinence with these episodes. No postictal or confused state afterwards. No numbness, tingling or weakness. No recent fevers or chills, no cold cough or congestion denies any back or flank pain. She has had some tightness in her chest today which she states is different. Patient states she has a remote history of back surgery. She would had an eye surgery with some complications in July but that has improved. She is urged sulfa. No tobacco, no alcohol, no illicit. Primary care is Dr. Beckwith. She has had CT angio on 08/07/2022 that showed tree-in-bud changes in the lungs as well as moderate to severe coronary artery calcifications and no PE. She would an MRI of her brain in July 11, 2022 which was negative she had a Holter monitor for 10 days in November of 2021 and did not repeat a Holter or ZIO patch since then. She is had an echo on December 14, 2021 showed EF of 55-60% with no focal wall motion abnormalities and mild TR with no effusion. Related Data Previous Rx's Medication Instructions Recorded valsartan 160 mg tablet 160 mg PO BID #180 tabs 11/27/21 lorazepam 0.5 mg tablet 0.5 mg PO BEDTIME PRN restless 06/08/22 leg(s) #20 tabs hydrochlorothiazide 25 mg tablet 25 mg PO QDAY #90 tabs 09/19/22 Allergies Allergy/AdvReac Type Severity Reaction Status Date / Time Vqbzwwc-IJF-HzK Reductase Allergy Severe 'SWOLLEN Verified 09/19/22 13:31 Inhibitor LIPS,TONGUE,AIRWAY [Jfiftyp-Soi-Iqd Reductase INVOLVED Inhibitor] codeine [CODEINE] Allergy Mild N&V Verified 09/19/22 13:31 fentanyl [FENTANYL] Allergy Mild N&V Verified 09/19/22 13:31 naproxen [NAPROXEN] Allergy Mild HEADACHE Verified 09/19/22 13:31 Sulfa (Sulfonamide Allergy Mild HIVES Verified 09/19/22 13:31 Antibiotics) [SULFA (SULFONAMIDE ANTIBIOTICS)] BETA HADLEY EYE GTTS Allergy Mild AFFECTED Uncoded 09/19/22 13:31 CLIMBING ABILITY Review of Systems Review of Systems ROS Unobtainable: All systems reviewed & are unremarkable except as noted in HPI and below Patient History Medical History Abnormal chest xray Actinic keratosis Bilateral cataracts (2012) Chicken pox CTS (carpal tunnel syndrome) (1991) Glaucoma (1984) Herpes Hyperlipidemia (2001) Hypertension (1999) Insulin resistance Lumbar spine pain Measles Melanoma of thigh (1997) MRSA infection (2002) Mumps Osteitis pubis Osteoarthritis Pain of left sacroiliac joint Persistent cough for 3 weeks or longer Recurrent sinusitis Right shoulder pain RLS (restless legs syndrome) (1994) Rubella Skin cancer Tuberculosis Surgical History Anesthesia History of shoulder surgery (2004) S/P ACL reconstruction (2003) S/P total abdominal hysterectomy and bilateral salpingo-oophorectomy (1967) Status post laminectomy (2012) Status post laser cataract surgery of both eyes (2012) Family History Brother Age: 84 Essential hypertension High cholesterol Father Essential hypertension Parkinson's disease Mother Essential hypertension Osteoporosis Congestive heart failure Social History Smoking Status: Never smoker alcohol intake: current substance use type: does not use Smoking Status: Never smoker alcohol intake frequency: 0-2 drinks per day Substance Use Type: does not use Exam Narrative Exam Narrative: GEN: well nourished, well appearing female, alert and oriented x 3, patient appears to be in mild distress. HEENT: Atraumatic, pupils are equal round reactive to light, extraocular movements are intact, nares are clear, TMs are clear with no fluid, there is no conjunctival pallor. Throat is clear without any exudates, erythema, tonsillar enlargement or uvular deviation HEART: Regular rate and rhythm without murmur, clicks, rubs. Pulses are equal in upper and lower extremities. No swelling bilateral lower extremities. LUNGS:Lungs clear to auscultation, no wheezes, rales, crackles, chest moves symmetrically ABD:bowel sounds normal, soft, non-tender, no guarding, rebound, rigidity, no masses noted, no hepatosplenomegaly, no bruit or pulsatile mass :No CVA tenderness MSCL: Non-tender, no muscle atrophy, muscles strength 5/5 upper and lower extremities, full range of motion, normal gait NEURO:CN 2-12 intact, sensation normal. SKIN: No rash, erythema or other skin changes. Initial Vital Signs Initial Vital Signs: Vital Signs Temperature 97.9 F 10/14/22 08:33 Pulse Rate 75 10/14/22 08:33 Respiratory Rate 18 10/14/22 08:33 Blood Pressure 166/78 H 10/14/22 08:33 Pulse Oximetry 98 10/14/22 08:33 Oxygen Delivery Method 10/14/22 08:33 Course Orders Ordered: ED Orders 10/14/22 09:19 Covid-19 + FLU A/B + RSV - PCR Stat 10/14/22 10:33 Trop I [Troponin I] Stat 10/14/22 11:53 EKG-12 Lead Stat Discontinued Medications Sodium Chloride (Normal Saline 0.9%) 1,000 mls @ 1,000 mls/hr IV BOLUS ONE Stop: 10/14/22 09:56 Last Infusion: 10/14/22 10:39 Dose: 0 mls/hr Documented By: Admin: 10/14/22 09:11 Dose: 1,000 mls/hr Documented By: ANGELI Vital Signs Vital signs: Vital Signs - 8 hr 10/14/22 10:30 10/14/22 11:00 10/14/22 11:00 Pulse Rate 61 64 Respiratory Rate 20 19 Blood Pressure 146/74 H Pulse Oximetry 98 99 Oxygen Delivery Method 10/14/22 11:30 10/14/22 11:30 10/14/22 12:00 Pulse Rate 62 Respiratory Rate 16 Blood Pressure 149/81 H 153/73 H Pulse Oximetry 99 Oxygen Delivery Method 10/14/22 12:00 10/14/22 12:30 10/14/22 12:30 Pulse Rate 63 63 Respiratory Rate 22 17 Blood Pressure 153/79 H Pulse Oximetry 98 98 Oxygen Delivery Method Room Air 10/14/22 13:28 Pulse Rate 69 Respiratory Rate 14 Blood Pressure 166/86 H Pulse Oximetry 98 Oxygen Delivery Method Room Air MDM - Syncope Lab Data Result diagrams: 10/14/22 08:48 10/14/22 08:48 Labs: Lab Results 10/14/22 10/14/22 10/14/22 Range/Units 08:48 08:48 08:48 WBC 8.1 (4.5-11.0) X10^3/uL RBC 4.38 (4.0-5.2) X10^6/uL Hgb 12.7 (12.0-16.0) g/dL Hct 37.8 (36-46) % MCV 86.2 (80-100) fL MCH 28.9 (26-34) PG MCHC 33.5 (30-36) % RDW 15.3 H (11.6-14.8) % Plt Count 308 (150-400) X10^3/uL Neut % (Auto) 64.5 (50-75) % Lymph % (Auto) 22.0 L (25-40) % [place] % (Auto) 5.7 (3-14) % Eos % (Auto) 3.4 (2-4) % Baso % (Auto) 4.4 H (0-2) % Neut # (Auto) 5200 (4043-5496) /uL Lymph # (Auto) 1800 (5298-5452) /uL [place] # (Auto) 500 (0-900) /uL Eos # (Auto) 300 (0-450) /uL Baso # (Auto) 400 H (0-100) /uL PT 12.2 (10.1-12.7) SECONDS INR 1.1 (0.9-1.3) APTT 29 (26-36) SECONDS D-Dimer 603 H (<500) ng/ml Sodium 140 (137-145) mmol/L Potassium 3.8 (3.4-5.1) mmol/L Chloride 103 (98-107) mmol/L Carbon Dioxide 25 (22-32) mmol/L BUN 26 H (7-17) mg/dL Creatinine 1.06 H (0.52-1.04) mg/dL Estimated GFR 53 L (>60) mL/min BUN/Creatinine Ratio 24.5 H (6-22) Glucose 125 H (80-110) mg/dL Calcium 9.4 (8.4-10.2) mg/dL Total Bilirubin 0.5 (0.2-1.3) mg/dL AST 22 (14-36) IU/L ALT 20 (<35) IU/L Alkaline Phosphatase 75 (38-126) U/L Total Creatine Kinase 48 (30-135) U/L CK-MB (CK-2) TNP CK-MB (CK-2) Rel Index TNP Troponin I < 0.012 (0.01-0.034) ng/mL NT-Pro-B Natriuret Pep (<450) pg/mL Total Protein 7.6 (6.3-8.2) g/dL Albumin 4.2 (3.5-5.0) g/dL Globulin 3.4 (1.7-4.1) g/dL Albumin/Globulin Ratio 1.2 (1.0-2.8) Lipase 244 (23-300) U/L SARS-CoV-2 (PCR) (Negative) Influenza A (RT-PCR) (NEGATIVE) Influenza B (RT-PCR) (NEGATIVE) RSV (PCR) (Negative) 10/14/22 10/14/22 10/14/22 Range/Units 08:48 09:19 10:33 WBC (4.5-11.0) X10^3/uL RBC (4.0-5.2) X10^6/uL Hgb (12.0-16.0) g/dL Hct (36-46) % MCV (80-100) fL MCH (26-34) PG MCHC (30-36) % RDW (11.6-14.8) % Plt Count (150-400) X10^3/uL Neut % (Auto) (50-75) % Lymph % (Auto) (25-40) % [place] % (Auto) (3-14) % Eos % (Auto) (2-4) % Baso % (Auto) (0-2) % Neut # (Auto) (7646-4779) /uL Lymph # (Auto) (2977-7761) /uL [place] # (Auto) (0-900) /uL Eos # (Auto) (0-450) /uL Baso # (Auto) (0-100) /uL PT (10.1-12.7) SECONDS INR (0.9-1.3) APTT (26-36) SECONDS D-Dimer (<500) ng/ml Sodium (137-145) mmol/L Potassium (3.4-5.1) mmol/L Chloride (98-107) mmol/L Carbon Dioxide (22-32) mmol/L BUN (7-17) mg/dL Creatinine (0.52-1.04) mg/dL Estimated GFR (>60) mL/min BUN/Creatinine Ratio (6-22) Glucose (80-110) mg/dL Calcium (8.4-10.2) mg/dL Total Bilirubin (0.2-1.3) mg/dL AST (14-36) IU/L ALT (<35) IU/L Alkaline Phosphatase (38-126) U/L Total Creatine Kinase (30-135) U/L CK-MB (CK-2) CK-MB (CK-2) Rel Index Troponin I < 0.012 (0.01-0.034) ng/mL NT-Pro-B Natriuret Pep 185 (<450) pg/mL Total Protein (6.3-8.2) g/dL Albumin (3.5-5.0) g/dL Globulin (1.7-4.1) g/dL Albumin/Globulin Ratio (1.0-2.8) Lipase (23-300) U/L SARS-CoV-2 (PCR) Negative (Negative) Influenza A (RT-PCR) Flu a negative (NEGATIVE) Influenza B (RT-PCR) Flu b negative (NEGATIVE) RSV (PCR) Negative (Negative) Imaging Data Chest x-ray: Radiologist's Impression: Close Chest X-Ray (Signed) Theo Junior - 10/14/22 Chest CTA (Signed) Scottie Stevenson - 08/07/[address] (Signed) Katarina Mascorro - 08/07/22 Chest X-Ray (Signed) James Bergeron - 08/07/22 Brain MRI (Signed) Veronica Rose - 07/11/22 Echocardiogram Ultrasound (Signed) Wagner Coyle - 12/14/21 Radiology Report (Cancelled) Lorne Vieira - 11/30/21 Myocardial Perfusion Scan Nuc Med (Signed) Lorne Vieira - 11/30/21 EKG Rpt. 11/11/21 Chest X-Ray (Signed) Brian Vee - 11/11/21 Chest X-Ray (Signed) Veronica Rose - 10/02/21 Hip X-Ray (Signed) Cecilia Swanson - 08/23/21 Chest X-Ray (Signed) Alonso Mascorro - 08/23/21 Brain MRI (Signed) Veronica Rose - 09/13/[address] (Signed) Call,Jaylon - 09/11/20 Chest X-Ray (Signed) Call,Jaylon - 09/11/[address] (Signed) Alonso Mascorro - 09/22/19 Lumbar Spine X-Ray (Signed) Alonso Mascorro - 09/22/19 Breast Ultrasound (Signed) Lam Trevizo - 03/24/19 Mammogram Diagnostic (Signed) Marilia Leal - 12/09/18 Echocardiogram Ultrasound (Signed) Yovani Olmstead - 12/09/18 Breast Ultrasound (Signed) Marilia Leal - 12/09/[address] [address] XRay Report Signed Patient: Misa Slater MR#: [id number] : 1940 Acct:[id number] Age/Sex: 82 / F Date of Service: 10/14/22 Loc: ED Accession Number: [id number] ?? Procedure: XR chest 1V Ordering Provider: Ella Jean D.O. PROCEDURE:? XR CHEST 1V ? INDICATIONS:? syncope ? TECHNIQUE:? One view of the chest was acquired.? ? COMPARISON:? [facility], CR, XR CHEST 1V, 08/07/2022, 8:32. ? FINDINGS:? ? Surgical changes and devices:? There is prior right shoulder arthroplasty. ? Lungs and pleura:? Lungs are clear.? No pleural effusions or pneumothorax.? ? Mediastinum:? Mildly tortuous thoracic aorta is again seen.? Heart size is normal.? ? Bones and chest wall:? No suspicious bony lesions.? Overlying soft tissues appear unremarkable.? ? IMPRESSION:? No acute cardiopulmonary pathology. ? ? Dictated by: Theo Junior M.D. on 10/14/2022 at 9:27 ? ? Approved by: Theo Junior M.D. on 10/14/2022 at 9:28?? ECG Data Attestation: I personally reviewed and interpreted this ECG as follows: Interpretation: Sinus rhythm, right block, left anterior fascicular block, rate of 71 ID 162 QRS is 122, QTC 478. No acute ST changes appreciated patient has prior from 08/07/2022 with no changes that day. EKG 2. Sinus bradycardia right bundle branch and left anterior fascicular block with sinus arrhythmia rate of 59 ID 170 QRS of 126 QTC of 473. Patient is noted to appears to be dropping a beat with each P wave does not appear to be extending possibly a Mobitz type 2. Discussed with Dr. Quiñonez and she believes it is a sinoatrial exit block. [facility] Narrative Medical decision making narrative: This is a 82-year-old female with syncopal episode while seated yesterday. Patient feels a little lightheaded intermittently today as well. Patient states episodes have happened intermittently in the past they do not seem to be positional, she states he seemed to be little bit more frequent and going in intensity. She was seen in July for similar episode, at that time and today there is some suspicion for cardiac electrical abnormality. Patient's workup today includes a negative CBC, D-dimer is negative when age adjusted, CMP shows creatinine of 1.06 was 0.99 on last visit with a BUN of 26, otherwise appropriate electrolytes, LFTs, troponin and BNP are all negative. Patient has a glucose of 125, chest x-ray is negative for acute change. For Plex swab shows Reviewing patient's prior records she had a brain MR in June of 2022 which was negative, she is had a CT angio of her chest showed tree-in-bud changes in her lungs and severe calcification of coronary arteries but no PE. She would echo in November of 2021 showed an EF 55-60% with no focal abnormalities, mild tricuspid regurg no effusion she would a Holter around that time which she states was negative. She was recommended to have repeat Holter or ZIO patch in July of this year but she has not obtain that she has been set up for an appointment with electrophysiology for October 25 for evaluation. Patient did have orthostatics today they were negative and her blood pressure actually increased slightly with standing heart rate did not change significantly in patient herself notes no there is no positional are significant timing to her symptoms. Case was discussed with Cardiology, Dr. 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 She states it is quite rare. Recommendations are transfer for pacemaker. She is looking at the scheduled to see how quickly patient can be set up. There is currently significant regional bed shortages and will likely be several days. Discussed with the patient she is going to return home to follow-up outpatient but understands risks of going home Dr. Quiñonez his aware and will help to facilitate follow-up with cardiology. Patient has an appointment on the or [address] Castaneda the house moving supervisor. She is aware that she should not drive or be in hazardous locations if she has loss of consciousness. We discussed return precautions. All questions answered. Patient has friends and family that will be with her so she is not alone. Discharge Plan Departure Patient Disposition: Home Clinical Impression: Syncope, Sinoatrial block Activity Restrictions/Additional Instructions: I spoke with Dr. Quiñonez the on-call pit hoist operator today she states you have a uncommon block that appears to be a sinoatrial exit block. Please call the office tomorrow with Dr. Castaneda to discuss being scheduled for likely pacemaker. Avoid driving or being in locations were if you have a loss of consciousness it would place you in danger such as around water, swimming pools or other hazardous locations. You can continue your current home medications as prescribed. Please return for recurrent episodes of passing out, new chest pain, shortness of breath, new swelling in your extremities or other new or concerning changes. Prescriptions: No Action hydrochlorothiazide 25 mg tablet 25 mg PO QDAY Qty: 90 3RF valsartan 160 mg tablet 160 mg PO BID Qty: 180 3RF lorazepam 0.5 mg tablet 0.5 mg PO BEDTIME PRN (Reason: restless leg(s)) Qty: 20 0RF Rx Instructions: Take one tablet by mouth at bedtime as needed for restless legs Referrals: Marcio Castaneda MD [Physician] - James Beckwith MD [Primary Care Provider] - Stand Alone Forms: Patient Portal/API
[2022-10-14 10:11] LABS: Influenza A - CEPHEID Flu A NEGATIVE (NEGATIVE); Influenza B - CEPHEID Flu B NEGATIVE (NEGATIVE); Respiratory Syncytial Virus Negative (Negative)
[2022-10-14 10:18] LABS: COVID-19 CEPHEID 4-PLEX PCR Negative (Negative)
[2022-10-14 11:01] LABS: Troponin I < 0.012 ng/mL (0.01-0.034)
--- NOTE | 2022-10-14 13:03 | PC.NURSE ---
Patient stated she would like go home. She has a friend who is going to stay with her until her follow up with cardiology. She states that she feels well enough to wait at home.
== END 2022-10-14 13:31 | disposition home or self-care (01) ==
PROVIDERS: Emergency Provider Emergency Medicine; PCP Family Medicine
DX: R55 Syncope and collapse (principal); I45.5 Other specified heart block
CPT/HCPCS: 0241U; 36415; 71045; 80053; 82550; 83690; 83880; 84484; 85025; 85379; 85610; 85730; 93005; 99284

== ENCOUNTER → 2023-08-29 12:12 | Outpatient (CLI) | payer MEDICARE, OTHER, SELFPAY ==
--- NOTE | 2023-08-29 12:15 | DI.RAD.S_ITS ---
PROCEDURE: XR CHEST 2V INDICATIONS: Heart murmur; MCKEON; persistent cough TECHNIQUE: 2 views of the chest were acquired. COMPARISON: [facility], CR, XR LUMBAR SPINE WITH FLEXION EXTENSION 5 VIEWS, 09/14/2021, 10:26. [facility], CR, XR CHEST 1 VIEW, 11/02/2022, 9:01. [facility], CR, XR CHEST 2 VIEWS, 11/02/2022, 12:24. FINDINGS: Surgical changes and devices: Left cardiac pacemaker. Right total shoulder arthroplasty. Partially imaged left lumbar spinal fusion hardware. Lungs and pleura: Lungs are clear. No pleural effusions or pneumothorax. Mediastinum: Mediastinal contours appear stable. Heart size is stable. Bones and chest wall: No suspicious bony abnormalities. Soft tissues appear unremarkable. IMPRESSION: Stable radiographic evaluation of the chest without acute cardiopulmonary abnormalities or focal airspace disease. Dictated by: Neel Cannon M.D. on 08/29/2023 at 14:03 Approved by: Neel Cannon M.D. on 08/29/2023 at 14:05
[2023-08-29 13:35] LABS: Add Manual Diff / Slide Review NO; Basophils Absolute Auto 100 /uL (0-100); Basophils Percent Auto 1.2 % (0-2); Eosinophils Absolute Auto 500 /uL (0-450); Eosinophils Percent Auto 5.1 % (2-4); Hematocrit 39.7 % (36-46); Hemoglobin 13.3 g/dL (12.0-16.0); Lymphocytes Absolute Auto 2600 /uL (1100-4500); Lymphocytes Percent Auto 26.3 % (25-40); Mean Corpuscular HGB Conc 33.6 % (30-36); Mean Corpuscular Hemoglobin 29.4 PG (26-34); Mean Corpuscular Volume 87.5 fL (80-100); Monocytes Absolute Auto 700 /uL (0-900); Monocytes Percent Auto 6.6 % (3-14); Neutrophils Absolute Auto 6100 /uL (1500-7000); Neutrophils Percent Auto 60.8 % (50-75); Platelet Count 297 X10^3/uL (150-400); Red Blood Cell Count 4.54 X10^6/uL (4.0-5.2); Red Cell Distribution Width 14.3 % (11.6-14.8)
[2023-08-29 14:12] LABS: BUN Creatinine Ratio 28.9 (6-22); Blood Urea Nitrogen 28 mg/dL (7-17); Calcium 10.1 mg/dL (8.4-10.2); Carbon Dioxide 30 mmol/L (22-32); Chloride 96 mmol/L (98-107); Estimated Glomerular Filt Rate 58 mL/min (>60); Glucose 97 mg/dL (80-110); HEMOLYSIS < 15 (0-50); Potassium 4.5 mmol/L (3.4-5.1); Sodium 134 mmol/L (137-145)
[2023-08-29 14:13] LABS: NT-proBNP (BNP-Adult 18+) 55 pg/mL (<450)
[2023-08-29 14:38] LABS: TSH w/ Reflex to FT4 1.75 uIU/mL (0.47-4.68)
== END ==
PROVIDERS: PCP Family Medicine; Referring Provider Physician Assistant; Visit Provider Physician Assistant
DX: R01.1 Cardiac murmur, unspecified (principal); R06.09 Other forms of dyspnea; R05.3 Chronic cough; Z95.0 Presence of cardiac pacemaker; Z98.1 Arthrodesis status
CPT/HCPCS: 36415; 71046; 80048; 83880; 84443; 85025

== ENCOUNTER → 2023-09-27 08:04 | Outpatient (CLI) | payer MEDICARE, OTHER, SELFPAY ==
--- NOTE | 2023-09-27 08:07 | DI.ECHO.S_ITS ---
[facility]---------+ [facility] +---------+ : : [address] : [address] : : : : [id number] : : : : Phone: [phone]+ Echocardiogram Report + + :Name: HERIBERTO KATZ Study Date: 09/27/2023 Height: 60 in : :[facility] ReadingLocation: Weight: 132 lb : : Gender: Female BSA: 1.6 m2 : :: 1940 Age: 83 yrs BP: 141/87 mmHg: :Reason For Study: Dyspnea : :Ordering Physician: Marcio Javier : :Tonya Performed By: Debora Mccall : :Referring: MANDY ALCARAZ : + + Interpretation Summary The ejection fraction is estimated to be 55-60%. Grade I diastolic dysfunction. The right ventricular systolic function is normal. The right ventricular systolic pressure is estimated to be at least 30 mmHg based on an estimated right atrial pressure of 3 mm Hg. No significant valvular abnormality. No significant change from prior study in 11/2021. Procedure: A two-dimensional transthoracic echocardiogram with color flow and Doppler was performed. The study quality was technically adequate. Comparison is made with the echocardiogram of 12-14-21. The heart rate ranged between 62-63 bpm during the study. Left Ventricle: The left ventricle is normal in size and wall thickness. The ejection fraction is estimated to be 55-60%. Grade I diastolic dysfunction. Right Ventricle: Borderline right ventricular enlargement. There is a pacemaker lead in the right ventricle. The right ventricular systolic function is normal. Atria: The left atrial size is normal. Right atrial size is normal. The interatrial septum grossly appears intact with no obvious evidence for an atrial septal defect. Mitral Valve: The mitral valve leaflets appear mildly thickened, but open well. There is trace mitral regurgitation. Aortic Valve: The aortic valve opens well. There is no aortic valve stenosis. No aortic regurgitation is present. Tricuspid Valve: The tricuspid valve leaflets are thin and pliable. The tricuspid valve leaflets are thickened and/or calcified, but open well. There is mild tricuspid regurgitation. The right ventricular systolic pressure is estimated to be at least 30 mmHg based on an estimated right atrial pressure of 3 mm Hg. Pulmonic Valve: The pulmonic valve is not well seen, but is grossly normal. There is mild pulmonic regurgitation. Great Vessels: The aortic root is normal size. The ascending aorta is at the upper limits of normal in size. The aortic arch is normal in size. The IVC is of normal diameter and collapses greater than 50% with a sniff. This suggests a low right atrial pressure of 3 mm Hg. Pericardium/ Pleura There is no pericardial effusion. There is no pleural effusion. MMode/2D Measurements & Calculations LVIDd: 4.5 cm LVOT diam: 1.7 cm LVIDs: 2.3 cm Ao root diam: 2.8 cm FS: 50.0 % asc Aorta Diam: 3.4 cm EPSS: 0.23 cm Ao Arch Diam (Prox Trans): 2.2 cm IVSd: 1.0 cm LVPWd: 1.0 cm LV heredia. diameter/BSA (cm/m^2): 2.9 LV sys. diameter/BSA (cm/m^2): 1.4 LA A2 area: 14.5 cm2 RA long axis: 3.7 cm LA A4 area: 15.5 cm2 RA area: 11.7 cm2 LA length (vol): 4.7 cm RA vol: 31.8 ml LA vol: 40.2 ml RA : 20.3 ml/m2 LA vol index: 25.7 ml/m2 IVC diam: 1.6 cm RVD1 (basal): 2.6 cm Doppler Measurements & Calculations Ao V2 max: 152.9 cm/sec LVOT Max Braden: 113.1 cm/sec Ao V2 mean: 107.5 cm/sec LV V1 max P.1 mmHg Ao max P.4 mmHg LV V1 VTI: 25.0 cm Ao mean P.1 mmHg EDWIN(I,D): 1.6 cm2 Ao V2 VTI: 34.4 cm EDWIN(V,D): 1.6 cm2 sev ratio: 0.73 EDIWN indexed to BSA (cm^2/m^2): 1.0 MV E max braden: 69.8 cm/sec TR max braden: 259.4 cm/sec MV A max braden: 100.8 cm/sec TR max P.9 mmHg MV E/A: 0.69 PA V2 max: 65.3 cm/sec Med Peak E' Braden: 4.6 cm/sec PA V2 mean: 45.1 cm/sec E/E' med: 15.0 PA mean P.91 mmHg Lat Peak E' Braden: 4.9 cm/sec E/E' lat: 14.2 E/e' average: 14.6 MV dec time: 0.31 sec SVLVOT): 55.7 ml Reading Physician:PM
== END ==
LOC: ECHO 08:06
PROVIDERS: PCP Family Medicine; Referring Provider Physician Assistant; Visit Provider Physician Assistant
DX: I07.1 Rheumatic tricuspid insufficiency (principal); I37.1 Nonrheumatic pulmonary valve insufficiency; R01.1 Cardiac murmur, unspecified; R06.09 Other forms of dyspnea
CPT/HCPCS: 93306

== ENCOUNTER → 2024-05-14 16:34 | Outpatient (CLI) | payer MEDICARE, OTHER, SELFPAY ==
[2024-05-14 17:12] LABS: Add Manual Diff / Slide Review NO; Basophils Absolute Auto 100 /uL (0-100); Basophils Percent Auto 1.1 % (0-2); Eosinophils Absolute Auto 400 /uL (0-450); Eosinophils Percent Auto 4.2 % (2-4); Hematocrit 39.4 % (36-46); Hemoglobin 13.6 g/dL (12.0-16.0); Lymphocytes Absolute Auto 3100 /uL (1100-4500); Lymphocytes Percent Auto 35.2 % (25-40); Mean Corpuscular HGB Conc 34.5 % (30-36); Mean Corpuscular Hemoglobin 30.7 PG (26-34); Mean Corpuscular Volume 88.9 fL (80-100); Monocytes Absolute Auto 600 /uL (0-900); Monocytes Percent Auto 6.8 % (3-14); Neutrophils Absolute Auto 4700 /uL (1500-7000); Neutrophils Percent Auto 52.7 % (50-75); Platelet Count 299 X10^3/uL (150-400); Red Blood Cell Count 4.42 X10^6/uL (4.0-5.2); Red Cell Distribution Width 14.4 % (11.6-14.8); White Blood Cell Count 8.8 X10^3/uL (4.5-11.0)
[2024-05-14 17:25] LABS: Iron 106 ug/dL (37-170)
[2024-05-14 17:29] LABS: Alanine Aminotransferase 22 IU/L (<35); Albumin 4.5 g/dL (3.5-5.0); Albumin Globulin Ratio 1.5 (1.0-2.8); Alkaline Phosphatase 65 U/L (38-126); Aspartate Aminotransferase 36 IU/L (14-36); BUN Creatinine Ratio 34.5 (6-22); Bilirubin Total 0.5 mg/dL (0.2-1.3); Blood Urea Nitrogen 38 mg/dL (7-17); Calcium 9.9 mg/dL (8.4-10.2); Carbon Dioxide 25 mmol/L (22-32); Chloride 98 mmol/L (98-107); Estimated Glomerular Filt Rate 50 mL/min (>60); Glucose 98 mg/dL (80-110); HEMOLYSIS < 15 (0-50); Potassium 4.1 mmol/L (3.4-5.1); Sodium 135 mmol/L (137-145); Total Protein 7.5 g/dL (6.3-8.2)
[2024-05-14 18:06] LABS: Ferritin 23 ng/mL (11-264)
[2024-05-14 18:15] LABS: Vitamin B12 927 pg/mL (239-931)
== END ==
LOC: LAB 16:35
PROVIDERS: PCP Family Medicine; Referring Provider Physician Assistant; Visit Provider Physician Assistant
DX: G25.81 Restless legs syndrome (principal)
CPT/HCPCS: 36415; 80053; 82607; 82728; 83540; 85025

== ENCOUNTER → 2024-09-08 11:22 | Outpatient (CLI) | payer MEDICARE, OTHER, SELFPAY ==
--- NOTE | 2024-09-08 11:23 | DI.RAD.S_ITS ---
PROCEDURE: XR KNEE RT 3V INDICATIONS: Right knee pain - suspect OA TECHNIQUE: 3 views of the knee were acquired. COMPARISON: None. FINDINGS: Bones: The ACL repair. No fractures or dislocations. No suspicious bony lesions. Moderate lateral compartment space narrowing. Soft tissues: Moderate suprapatellar joint effusion. Medial compartment soft tissue calcification. IMPRESSION: 1. Moderate lateral compartment osteoarthritis. 2. Medial compartment chondrocalcinosis. 3. Moderate suprapatellar joint effusion. Dictated by: Lam Berumen M.D. on 09/08/2024 at 17:28 Approved by: Lam Berumen M.D. on 09/08/2024 at 17:33
[2024-09-08 13:01] LABS: BUN Creatinine Ratio 29.4 (6-22); Blood Urea Nitrogen 30 mg/dL (7-17); Carbon Dioxide 29 mmol/L (22-32); Chloride 99 mmol/L (98-107); Cholesterol 241 mg/dL (140-199); Estimated Glomerular Filt Rate 55 mL/min (>60); Glucose 102 mg/dL (80-110); HDL Cholesterol 68 mg/dL (40-60); HEMOLYSIS < 15 (0-50); Potassium 4.4 mmol/L (3.4-5.1); Sodium 133 mmol/L (137-145)
[2024-09-08 13:41] LABS: LDL Cholesterol Calculated 127 mg/dL (<100); Triglycerides 230 mg/dL (35-150)
== END ==
PROVIDERS: PCP Family Medicine; Referring Provider Physician Assistant; Visit Provider Physician Assistant
DX: N18.9 Chronic kidney disease, unspecified (principal); M17.11 Unilateral primary osteoarthritis, right knee; E78.5 Hyperlipidemia, unspecified; M25.461 Effusion, right knee; M11.261 Other chondrocalcinosis, right knee; M25.561 Pain in right knee
CPT/HCPCS: 36415; 73562; 80048; 80061

== ENCOUNTER → 2024-11-05 11:53 | Outpatient (CLI) | payer MEDICARE, OTHER, SELFPAY ==
--- NOTE | 2024-11-05 11:59 | DI.RAD.S_ITS ---
PROCEDURE: XR FOOT LT MIN 3V INDICATIONS: FOOT PAIN TECHNIQUE: 3 views of the foot were acquired. COMPARISON: None. FINDINGS: Bones: Mildly displaced oblique fracture of the 1st proximal phalanx is age indeterminate. Please correlate with deformity and history of injury to this region. Joints: 1st MTP and 2nd PIP shows joint space narrowing juxta-articular erosions, periarticular swelling and calcifications highly suggestive of gout. There is also mild degenerative change of the 2nd through 5th interphalangeal joints Soft tissues: Diffuse soft tissue swelling noted. IMPRESSION: Findings suggestive of 1st MTP and, possibly, 2nd PIP gout. Please correlate uric acid levels and other supportive clinical evidence. Mildly displaced oblique fracture 1st proximal phalanx- age indeterminate. Dictated by: Cuate Contreras M.D. on 11/06/2024 at 9:51 Approved by: Cuate Contreras M.D. on 11/06/2024 at 9:55
--- NOTE | 2024-11-05 11:59 | DI.RAD.S_ITS ---
PROCEDURE: XR FOOT RT MIN 3V INDICATIONS: FOOT PAIN TECHNIQUE: 3 views of the foot were acquired. COMPARISON: [facility], CR, XR FOOT LT MIN 3V, 11/05/2024, 12:09. FINDINGS: Bones: Severe hallux valgus , moderate metatarsus abductus and hammertoe deformities 1st through 5th digits noted. Os naviculare noted bilaterally. Joints: 1st MTP and 2nd PIP joints show joint space narrowing, juxta-articular erosions and periarticular soft tissue swelling/ calcification all compatible with gout. There is mild degeneration in the remaining interphalangeal joints. Soft tissues: No soft tissue abnormality. IMPRESSION: Findings suggestive of gout involving the 1st MTP and 2nd PIP joints. Please correlate uric acid levels. Moderate hallux valgus and other chronic findings Dictated by: Cuate Contreras M.D. on 11/06/2024 at 9:55 Approved by: Cuate Contreras M.D. on 11/06/2024 at 9:58
== END ==
PROVIDERS: PCP Family Medicine; Referring Provider Podiatrist; Visit Provider Podiatrist
DX: M20.11 Hallux valgus (acquired), right foot; M20.12 Hallux valgus (acquired), left foot; M21.619 Bunion of unspecified foot; M20.41 Other hammer toe(s) (acquired), right foot; M20.42 Other hammer toe(s) (acquired), left foot; M10.071 Idiopathic gout, right ankle and foot; M19.071 Primary osteoarthritis, right ankle and foot; M21.6X1 Other acquired deformities of right foot; S92.412A Displaced fracture of proximal phalanx of left great toe, initial encounter for closed fracture
CPT/HCPCS: 73630

== ENCOUNTER → 2025-04-01 10:19 | Outpatient (CLI) | payer MEDICARE, OTHER, SELFPAY ==
[2025-04-01 13:38] LABS: Influenza A - CEPHEID Flu A NEGATIVE (NEGATIVE); Influenza B - CEPHEID Flu B NEGATIVE (NEGATIVE)
[2025-04-01 13:39] LABS: COVID-19 CEPHEID 4-PLEX PCR Negative (Negative)
== END ==
PROVIDERS: PCP Family Medicine; Visit Provider Physician Assistant
DX: R05.1 Acute cough (principal)
CPT/HCPCS: 87637

== ENCOUNTER 2025-04-05 11:40 | Emergency (ER) | payer MEDICARE, OTHER, SELFPAY ==
[2025-04-05] VITALS (13 sets, daily range): BP systolic 141–193; BP diastolic 58–87; PULSE 65–73; RESP 16–26; TEMP 36.6; O2SAT 95–98; BMI 25.7
--- NOTE | 2025-04-05 12:16 | DI.CT.S_ITS ---
PROCEDURE: CT ANGIO HEAD AND NECK INDICATIONS: r/o stroke TECHNIQUE: After the administration of intravenous contrast, 1 mm thick sections acquired from the aortic arch through the [place] of Mae. 3-dimensional vulklyq-cpvkkyvgt-fijzfqhqky (MIP) and/or volume rendering reformats were acquired of the central intracranial vasculature and neck separately. For radiation dose reduction, the following was used: automated exposure control, adjustment of mA and/or kV according to patient size. COMPARISON: None. FINDINGS: Image quality: Diagnostic. Cerebral CT Angiogram: Internal carotid arteries: No acute findings. Intracranial ICA are patent with no significant stenosis. No occlusion. No aneurysm. Anterior cerebral arteries: Unremarkable. No significant stenosis. No occlusion. No aneurysm. Middle cerebral arteries: Unremarkable. No significant stenosis. No occlusion. No aneurysm. Posterior cerebral arteries: Unremarkable. No significant stenosis. No occlusion. No aneurysm. Basilar artery: Unremarkable. No significant stenosis. No occlusion. No aneurysm. Vertebral arteries: Unremarkable as visualized. Dural venous sinuses: Unremarkable given phase of enhancement. Other: Arterial phase appearance of the brain parenchyma is unremarkable. Neck CT Angiogram: Internal carotid arteries: Unremarkable. No significant stenosis. No dissection or occlusion. Common carotid arteries: Unremarkable. No significant stenosis. No dissection or occlusion. External carotid arteries: Unremarkable. No occlusion. Vertebral arteries: Unremarkable. No significant stenosis. No dissection or occlusion. Aortic Arch and Mediastinum: Partially visualized aortic arch unremarkable without evidence of aneurysm. Origins of the great vessels unremarkable. Other: Arterial phase soft tissues of the neck and chest are unremarkable. IMPRESSION: 1. No significant intracranial arterial abnormality is seen. 2. No significant abnormality is seen within the arteries of the neck. Any quantitative measurements of stenosis were performed using NASCET criteria. Dictated by: Theo Junior M.D. on 04/05/2025 at 12:07 Approved by: Theo Junior M.D. on 04/05/2025 at 12:08
--- NOTE | 2025-04-05 12:16 | DI.CT.S_ITS ---
PROCEDURE: CT STROKE INDICATIONS: Positive BE-FAST, Stroke symptoms TECHNIQUE: Noncontrast 4.5 mm thick angled axial sections acquired from the foramen magnum to the vertex, with coronal reformats. For radiation dose reduction, the following was used: automated exposure control, adjustment of mA and/or kV according to patient size. COMPARISON: None. FINDINGS: Image quality: Diagnostic. CSF spaces: Basal cisterns are patent. No extra-axial fluid collections. The ventricles are symmetric in size and shape. Brain: No intracranial bleeds or mass effect. There is cerebral volume loss, with resultant ventricular and sulcal prominence. There are periventricular and deep white matter chronic small vessel ischemic changes. There is intracranial internal carotid artery atherosclerosis. Skull and face: Calvarium and visualized facial bones appear intact, without suspicious lesions. Sinuses: Visualized sinuses and mastoids are clear. IMPRESSION: No acute intracranial pathology. Comment: Findings were discussed with Dr. Rosario on 04/05/2025 at 1233 hours This study fulfills neurological imaging criteria for inclusion or exclusion of acute stroke therapies based on available published neurological guidelines. Dictated by: Scottie Stevenson M.D. on 04/05/2025 at 12:32 Approved by: Scottie Stevenson M.D. on 04/05/2025 at 12:36
--- NOTE | 2025-04-05 12:16 | DI.RAD.S_ITS ---
PROCEDURE: XR CHEST 1V INDICATIONS: Possible stroke TECHNIQUE: One view of the chest was acquired. COMPARISON: [facility], , XR CHEST 2V, 08/29/2023, 12:19. FINDINGS: Surgical changes and devices: Left chest wall pacemaker leads are in the region of right atrium and right ventricle. There is right shoulder arthroplasty. Lungs and pleura: Lungs are clear. No pleural effusions or pneumothorax. Mediastinum: Mediastinal contours appear normal. Heart size is normal. Bones and chest wall: No suspicious bony lesions. Overlying soft tissues appear unremarkable. IMPRESSION: No acute cardiopulmonary pathology. Dictated by: Theo Junior M.D. on 04/05/2025 at 11:39 Approved by: Theo Junior M.D. on 04/05/2025 at 11:40
--- NOTE | 2025-04-05 12:17 | PC.NURSE ---
ELISAW 1030. Glu in triage 164.
[2025-04-05 12:31] LABS: Add Manual Diff / Slide Review NO; Hematocrit 41.9 % (36-46); Hemoglobin 14.0 g/dL (12.0-16.0); Lymphocytes Absolute Auto 2300 /uL (1100-4500); Mean Corpuscular HGB Conc 33.5 % (30-36); Mean Corpuscular Hemoglobin 29.8 PG (26-34); Mean Corpuscular Volume 89.0 fL (80-100); Platelet Count 344 X10^3/uL (150-400)
[2025-04-05 12:38] LABS: INR 1.1 (0.9-1.3); Prothrombin Time 12.1 SECONDS (9.4-12.5)
[2025-04-05 12:41] LABS: PTT Partial Thromboplastin Tim 31 SECONDS (25.1-36.5)
[2025-04-05 12:43] LABS: Alanine Aminotransferase 23 IU/L (<35); Albumin 4.6 g/dL (3.5-5.0); Albumin Globulin Ratio 1.4 (1.0-2.8); Alkaline Phosphatase 80 U/L (38-126); Blood Urea Nitrogen 31 mg/dL (7-17); Calcium 9.4 mg/dL (8.4-10.2); Carbon Dioxide 26 mmol/L (22-32); Chloride 95 mmol/L (98-107); Creatine Kinase 47 U/L (30-135); Estimated Glomerular Filt Rate 52 mL/min (>60); Globulin 3.3 g/dL (1.7-4.1); Glucose 161 mg/dL (70-99); HEMOLYSIS < 15 (0-50); Potassium 4.4 mmol/L (3.4-5.1); Sodium 130 mmol/L (137-145); Total Protein 7.9 g/dL (6.3-8.2)
[2025-04-05 12:55] LABS: Troponin I < 0.012 ng/mL (0.01-0.034)
--- NOTE | 2025-04-05 13:02 | EKG_ITS ---
[place] [address] [address] [place] [id number] Test Date: 2025-04-05 Pat Name: Misa Slater Department: [facility] Room: Gender: Female Visual Display Associate: : 1940 Requested By: Order Number: [id number] Reading MD: Sam Stokes Measurements Intervals [place] Rate: 68 P: 62 MN: 186 QRS: -78 QRSD: 130 T: 55 QT: 476 QTc: 506 Interpretive Statements Normal sinus rhythm Right bundle branch block Left anterior fascicular block Bifascicular block Electronically Signed On 04-07-2025 13:47:03 PDT by Sam Stokes
[2025-04-05 13:10] LABS: Ur Creatinine Normal (Normal); Ur Specific Gravity Normal (Normal); Urine pH Normal (Normal)
[2025-04-05 13:12] LABS: Urine MDMA Negative (Negative); Urine Methamphetamines Negative (Negative); Urine THC Negative (Negative); Urine Tricyclic Antidepressant Negative (Negative)
--- NOTE | 2025-04-05 17:04 | ED_ITS ---
HPI - Neuro Symptoms/Deficit General Chief Complaint: Neuro Symptoms/Deficit Stated Complaint: treated with pneumonia left arm loosing sensation Time Seen by Provider: 04/05/25 17:04 Source: patient Mode of arrival: Ambulatory History of Present Illness HPI Narrative: 85-year-old female with a history of hypertension presents with left-sided hemiparesis that started around 11:00 a.m. this morning. The patient recalls that there was not total weakness but just some weakness of the left side. Patient had no confusion or other neurological signs. On Anticoagulants: No Related Data Previous Rx's ?Medication ?Instructions ?Recorded acyclovir 5 % topical cream 1 applic topical QIDP #5 g jeremi 10/03/12 (Zovirax) brimonidine 0.2 %-timolol 0.5 % 1 drp EYE-BOTH BID #10 mL 06/03/23 eye drops (Combigan) netarsudil 0.02 %-latanoprost 1 drp EYE-LEFT QPM #2.5 mL 06/03/23 0.005 % eye drops (Rocklatan) valacyclovir 1 gram tablet 2,000 mg (2 x 1 gram) PO BI D #20 06/04/24 tabs temazepam 7.5 mg capsule 7.5 mg PO BEDTIME PRN sleep #20 08/04/24 caps hydroxyzine pamoate 25 mg capsule 25 mg PO BEDTIME PRN difficulty 08/12/24 sleeping #30 caps hydrochlorothiazide 25 mg tablet 25 mg PO QDAY #90 tab s 10/05/24 lorazepam 0.5 mg tablet 0.5 mg PO BEDTIME PRN restle ss 12/23/24 leg(s) #20 tabs valsartan 160 mg tablet 160 mg PO BID #180 tabs 04/0 11/17 albuterol sulfate 90 mcg/actuation 2 puff inhalation Q 4-6H PRN 04/01/25 aerosol inhaler shortness of breath or wheez ing #8.5 grams amoxicillin 875 mg-potassium 1 tab PO BID #14 tabs 07/17 clavulanate 125 mg tablet inhalational spacing device #1 ea 04/01/25 (BreatheRite MDI Spacer) Allergies Allergy/AdvReac Type Severity Reaction Status Date / Time Vlwpnyu-MCU-NqE Reductase Allergy Severe 'SWOLLEN Verified 04/05/25 12:08 Inhibitor (Khzarjw-Gfh-Bfa LIPS,TONGUE,AIRWAY Reductase Inhibitor) INVOLVED codeine (CODEINE) AdvReac Mild N&V Verified 04/05/25 12:08 fentanyl (FENTANYL) AdvReac Mild N&V Verified 04/05/25 12:08 Sulfa (Sulfonamide AdvReac Mild HIVES Verified 04/05/25 12:08 Antibiotics) (SULFA (SULFONAMIDE ANTIBIOTICS)) Review of Systems Review of Systems ROS Unobtainable: All systems reviewed & are unremarkable except as noted in HPI and below Hematologic/Lymphatic On Anticoagulants: No Patient History Medical History Abnormal chest xray Actinic keratosis Bilateral cataracts (2012) Chicken pox CTS (carpal tunnel syndrome) (1991) Glaucoma (1984) Herpes Hyperlipidemia (2001) Hypertension (1999) Insulin resistance Lumbar spine pain Measles Melanoma of thigh (1997) MRSA infection (2002) Mumps Osteitis pubis Osteoarthritis Pain of left sacroiliac joint Persistent cough for 3 weeks or longer Recurrent sinusitis Right shoulder pain RLS (restless legs syndrome) (1994) Rubella Skin cancer Tuberculosis Surgical History Anesthesia History of shoulder surgery (2004) S/P ACL reconstruction (2003) S/P total abdominal hysterectomy and bilateral salpingo-oophorectomy (1967) Status post laminectomy (2012) Status post laser cataract surgery of both eyes (2012) Family History Brother Age: 87 Essential hypertension High cholesterol Father Essential hypertension Parkinson's disease Mother Essential hypertension Osteoporosis Congestive heart failure Social History alcohol intake: current substance use type: does not use alcohol intake frequency: 0-2 drinks per day Exam Initial Vital Signs Initial Vital Signs: Vital Signs Temperature 97.8 F 04/05/25 12:08 Pulse Rate 70 04/05/25 12:08 Respiratory Rate 18 04/05/25 12:08 Blood Pressure 193/87 H 04/05/25 12:08 Pulse Oximetry 97 04/05/25 12:08 Oxygen Delivery Method Room Air 04/05/25 12:08 General: Healthy appearing, in no acute distress. Able to give a complete and coherent history. Well-nourished well-developed HEENT: Moist mucous membranes, normal sclera with reactive pupils, Neck: No JVD, supple Respiratory: bilateral wheezing/rhonchi . Full and symmetrical air movement Cardiac: Regular rate and rhythm no murmurs no bruits Abdomen: Soft, nontender, no rebound or guarding, no flank pain Skin: Warm and dry, no rashes Neurologic: Grossly neurologically intact with some left sided weakness Extremities: No trauma, well perfused Psych: Cooperative, appropriate insight and affect Course Course Course Narrative: Patient's symptoms resolved about 3-4 hours later] on their own. Orders Ordered: ED Orders 04/05/25 12:[address] angio head and neck Stat XR chest 1V Stat EKG-12 Lead Stat 04/05/25 12:19 Complete Blood Count AUTO DIFF Stat Comprehensive Metabolic Panel Stat PTT Partial Thromboplastin Feliciano Stat Prothrombin Time INR Stat Troponin & CK Cardiac Panel Stat 04/05/25 12:49 Urine Drug Screen, Rapid Stat Ondansetron HCl (Ondansetron 4 Mg/2 Ml Inj) 4 mg IV NOW PRN PRN Reason: Nausea And Vomiting Ondansetron HCl (Ondansetron 4 Mg Odt) 4 mg PO NOW PRN PRN Reason: Nausea And Vomiting Reevaluation(s) Reevaluation #1: Upon re-evaluation, approximately 3-4 hours later, patient's symptoms completely resolved. Consultations Consultation #1: Initial consultation was with tele stroke at [facility] who recommended that the patient be admitted to have an MRI done and put on observation. Consultation #2: Neuro was consulted at [facility] with Belkys Sosa nurse practitioner who accepted the patient to be put under observation and have an MRI done for further workup. Vital Signs Vital signs: Vital Signs - 8 hr 04/05/25 12:08 04/05/25 12:41 04/05/25 12:54 Temperature 97.8 F Pulse Rate 70 72 68 Respiratory Rate 18 22 21 Blood Pressure 193/87 H 164/72 H 167/58 H Pulse Oximetry 97 98 97 Oxygen Delivery Method Room Air Room Air Room Air 04/05/25 14:32 04/05/25 15:22 Temperature Pulse Rate 66 67 Respiratory Rate 20 18 Blood Pressure 163/77 H 152/70 H Pulse Oximetry 95 96 Oxygen Delivery Method Room Air Room Air MDM - Neuro Symptoms/Deficit Differential Diagnosis Differential diagnosis: Likely peripheral neuropathy, cerebrovascular accident, multiple sclerosis and transient cerebral ischemia Condition is:: Improved Condition is at treatment goal?: Yes Discussed with:: above Lab Data 04/05/25 12:19 04/05/25 12:19 Labs: Lab Results 04/05/25 04/05/25 04/05/25 Range/Units 12:16 12:19 12:49 WBC 8.7 (4.5-11.0) X10^3/uL RBC 4.71 (4.0-5.2) X10^6/uL Hgb 14.0 (12.0-16.0) g/dL Hct 41.9 (36-46) % MCV 89.0 (80-100) fL MCH 29.8 (26-34) PG MCHC 33.5 (30-36) % RDW 14.4 (11.6-14.8) % Plt Count 344 (150-400) X10^3/uL Neut % (Auto) 59.2 (50-75) % Lymph % (Auto) 27.1 (25-40) % Whitfield % (Auto) 7.4 (3-14) % Eos % (Auto) 6.0 H (2-4) % Baso % (Auto) 0.3 (0-2) % Neut # (Auto) 5100 (9834-3767) /uL Lymph # (Auto) 2300 (9925-7204) /uL Whitfield # (Auto) 600 (0-900) /uL Eos # (Auto) 500 H (0-450) /uL Baso # (Auto) 0 (0-100) /uL PT 12.1 (9.4-12.5) SECONDS INR 1.1 (0.9-1.3) APTT 31 (25.1-36.5) SECONDS Sodium 130 L (137-145) mmol/L Potassium 4.4 (3.4-5.1) mmol/L Chloride 95 L (98-107) mmol/L Carbon Dioxide 26 (22-32) mmol/L BUN 31 H (7-17) mg/dL Creatinine 1.05 H (0.52-1.04) mg/dL Estimated GFR 52 L (>60) mL/min BUN/Creatinine Ratio 29.5 H (6-22) Glucose 161 H (70-99) mg/dL POC Whole Bld Glucose 164 H (70-99) mg/dL Calcium 9.4 (8.4-10.2) mg/dL Total Bilirubin 0.5 (0.2-1.3) mg/dL AST 29 (14-36) IU/L ALT 23 (<35) IU/L Alkaline Phosphatase 80 (38-126) U/L Total Creatine Kinase 47 (30-135) U/L Troponin I < 0.012 (0.01-0.034) ng/mL Total Protein 7.9 (6.3-8.2) g/dL Albumin 4.6 (3.5-5.0) g/dL Globulin 3.3 (1.7-4.1) g/dL Albumin/Globulin Ratio 1.4 (1.0-2.8) U Opiates 300ng/mL cut Positive H (Negative) Ur Oxycodone Screen Negative (Negative) Urine Methadone Screen Negative (Negative) Ur Barbiturates Screen Negative (Negative) U Tricyclic Antidepress Negative (Negative) Ur Phencyclidine Scrn Negative (Negative) Ur Amphetamines Screen Negative (Negative) U Methamphetamines Scrn Negative (Negative) Ur MDMA Scrn (Ecstasy) Negative (Negative) U Benzodiazepines Scrn Positive H (Negative) Urine Cocaine Screen Negative (Negative) U Marijuana (THC) Screen Negative (Negative) Urine pH Normal (Normal) Urine Specific Nicholson Normal (Normal) Ur Creatinine Normal (Normal) Urine Dip Bedside Urine Glucose Negative Bedside Urine Bilirubin - Negative Bedside Urine Ketone - Negative Urine Specific Nicholson 1.005 Bedside Urine Occult Blood - Negative Bedside Urine pH 6.0 Bedside Urine Protein - Negative Bedside Urine Urobilinogen - Negative Bedside Urine Nitrite - Negative Bedside Urine Leukocytes - Negative Esterase ECG Data Interpretation: EKG showed a normal sinus rhythm, right bundle branch block, left anterior fascicular block, 68 beats per minute. No RI ST-T changes MDM Narrative Medical decision making narrative: Due to the patient having a pacemaker, there is no capability for the patient to be put on observation to have a MRI done here. Patient was accepted at [facility] to have a MRI done there as well as a neuro consultation for further workup. Patient was started on full-dose aspirin as well as full-dose Plavix and continue with a baby aspirin starting tomorrow as per neuro protocol. Discharge Plan Departure Patient Disposition: [facility] Clinical Impression: Stroke Qualifiers: CVA mechanism: unspecified Qualified Code(s): I63.9 - Cerebral infarction, unspecified Prescriptions: No Action brimonidine-timolol [Combigan] 0.2-0.5 % drops 1 drp EYE-BOTH BID Qty: 10 0RF Rocklatan 0.02-0.005 % drops 1 drp EYE-LEFT QPM Qty: 2.5 0RF valacyclovir 1 gram tablet 2,000 mg PO BID Qty: 20 3RF Rx Instructions: Take 2 tablets twice a day for one day temazepam 7.5 mg capsule 7.5 mg PO BEDTIME PRN (Reason: sleep) Qty: 20 0RF hydroxyzine pamoate 25 mg capsule 25 mg PO BEDTIME PRN (Reason: difficulty sleeping) Qty: 30 0RF Rx Instructions: Take one capsule one hour prior to bedtime. May repeat in 4-6 hours if needed hydrochlorothiazide 25 mg tablet 25 mg PO QDAY Qty: 90 3RF valsartan 160 mg tablet 160 mg PO BID Qty: 180 3RF lorazepam 0.5 mg tablet 0.5 mg PO BEDTIME PRN (Reason: restless leg(s)) Qty: 20 0RF Rx Instructions: Take one tablet by mouth at bedtime as needed for restless legs acyclovir [Zovirax] 5 % cream 1 applic Topical QIDP Qty: 5 2RF albuterol sulfate 90 mcg/actuation HFA aerosol inhaler 2 puff inhalation Q4-6H PRN (Reason: shortness of breath or wheezing) Qty: 8.5 0RF amoxicillin-pot clavulanate 875-125 mg tablet 1 tab PO BID Qty: 14 0RF (DME) BreatheRite MDI Spacer Spacer See Rx Instructions .Route Qty: 1 0RF Rx Instructions: As directed Referrals: James Beckwith MD [Primary Care Provider, Family Practice]
--- NOTE | 2025-04-05 17:20 | PC.NURSE ---
patient having tactile issues with left hand, unable to unbutton her pants, slight gait change with left lower extremity,
[2025-04-05] MEDS: SODIUM CHLORIDE 0.9% 1,000 ML 500 ML IV (17:31)
[2025-04-05] MEDS: CLOPIDOGREL 75 MG TABLET 300 MG PO (19:20)
[2025-04-05] MEDS: ASPIRIN EC 325 MG TABLET PO (19:20)
--- NOTE | 2025-04-05 19:37 | PC.NURSE ---
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
--- NOTE | 2025-04-05 20:02 | PC.NURSE ---
patient has her clothing and cell phone.
== END 2025-04-05 20:02 | disposition short-term general hospital (02) ==
PROVIDERS: Emergency Provider Family Medicine; PCP Family Medicine
DX: I63.9 Cerebral infarction, unspecified (principal); G81.94 Hemiplegia, unspecified affecting left nondominant side; I10 Essential (primary) hypertension; I45.10 Unspecified right bundle-branch block; R29.700 NIHSS score 0; Z95.0 Presence of cardiac pacemaker
CPT/HCPCS: 36415; 70450; 70496; 70498; 71045; 80053; 80305; 81003; 82550; 82962; 84484; 85025; 85610; 85730; 93005; 96360; 96361; 99285; Q9967

== ENCOUNTER 2025-06-29 14:30 | Outpatient (RCR) | payer MEDICARE, OTHER, SELFPAY ==
--- NOTE | 2025-05-21 07:27 | PT.OIE ---
Current Diagnoses Other intervertebral disc displacement, thoracic region (05/20/25) Arthrodesis status (05/20/25) Past Medical History (Last Reviewed 06/03/23 @ 15:27 by James Beckwith MD) Abnormal chest xray Actinic keratosis Bilateral cataracts (2012) Chicken pox CTS (carpal tunnel syndrome) (1991) Glaucoma (1984) Herpes Hyperlipidemia (2001) Hypertension (1999) Insulin resistance Lumbar spine pain Measles Melanoma of thigh (1997) MRSA infection (2002) Mumps Osteitis pubis Osteoarthritis Pain of left sacroiliac joint Persistent cough for 3 weeks or longer Recurrent sinusitis Right shoulder pain RLS (restless legs syndrome) (1994) Rubella Skin cancer Tuberculosis Past Surgical History (Last Reviewed 06/03/23 @ 15:27 by James Beckwith MD) Anesthesia History of shoulder surgery (2004) S/P ACL reconstruction (2003) S/P total abdominal hysterectomy and bilateral salpingo-oophorectomy (1967) Status post laminectomy (2012) Status post laser cataract surgery of both eyes (2012) Visit Care Team Role Provider Type James Beckwith MD Family Provider Physician Primary Care Provider Specialty: Family Practice Address: [address] [place] [address], [address], [address] Email: [email or web address] Matteo Puckett MD Attending Provider Physician Referring Provider Specialty: Orthopedic Surgery Address: [address] [place] [address], [id number] Email: Physical Therapy Initial Evaluation PT OP: Full Body Start: 05/21/25 07:12 Freq: Status: Active Protocol: Document 05/20/25 16:00 KW (Rec: 05/21/25 07:27 KW Laptop) Out-Patient Physical Therapy Visit Information Visit Information Visit Type Initial Evaluation Visit Note 6 visits Visit Start Time 11:30 Visit Stop Time 12:10 Visit Number 1 Progress Note Due 06/20/25 Evaluation Information Evaluation Date 05/20/25 Precautions Precautions Pacemaker fall risk Current Condition History of Current Condition Onset Date chronic Current Complaints Thoracic spine pain History of Current 85 yo female referred to PT for 6 visits before she can Condition be seen in pain clinic, considering spinal injection for Thoracic pain. She has h/o lumbar fusion, R total shoulder replacement. Vision loss. 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 She lost use of her L UE temporarily. 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 Treatment Goals Patient/Caregiver relieve thoracic spine pain Goals Patient Questionnaires Oswestry Low Back Index Oswestry Score 12 Oswestry Impairment 1 to 19% Impaired (Score 1-19) OP-PT Pain Assessment Location thoracic Pain Location lower thoracic Details Pain Intensity 2 Scale Used Numeric (0 - 10) Description Aching,Dull Frequency Frequent Balance Tests Single Limb Standing Single Limb- Right unable Single Limb- Left unable Semi-Tandem Standing Semi-Tandem Standing unable Balance Tandem Tandem Standing unable Functional Tests Five Times Sit to Stand Test Score 15 Comments use of hands Manual Assessments Joint Mobility Assessment Joint Mobility wide infra-sternal angle Assessment stiffness Lumbar spine, thoracic kyphosis OP Gait Assessment Assistive Devices Assistive Device Straight Cane Gait Deviations General Gait Pattern Decreased Stride Length,Wide Based Gait Comments Gait Comments shallow breathing pattern, minimal arm swing Posture Evaluation Comments Posture Comments petite 5'0, increased lumbar extension, flared anterior ribcage Palpation Assessment Location para spinals Palpation Findings Soft Tissue Tightness,Muscle Guarding,Tenderness, Trigger Point Palpation Details tender along T-L junction L > R Lumbar Spine Range of Motion Lumbar Spine Active Testing Position Standing ROM Limitations Soft Tissue Tightness,Bony Restriction Comments lumbar fusion, flattened lumbar spine, no intersegmental mobility thoracic spine pain with rotation L pre treatment, no pain post treatment Trunk Strength Trunk Manual Muscle Testing Flexion 4- Good- Extension 4- Good- Rotation Left 4- Good- Rotation Right 4- Good- Lateral Flexion Left 4- Good- Lateral Flexion 4- Good- Right Core Stabilization Poor CORE stability, breath holding patterns Therapeutic Exercises Sitting Exercises posterior expansion Sitting Exercise OUMOU handout issued, copy with stickers Name Side bilateral Comments seated posterior expansion Self-Care/Home Management Treatment Education Patient Education Body Mechanics,Fall Risk,Home Exercise Program,Joint Protection,Pain Management,Posture,Safety Other Education OUMOU handouts issued for positioning, optimizing L side WB as too excessive to R side Physical Therapy Assessment Rehab Potential Rehabilitation Good Potential Evaluation Complexity Number of Personal 1-2 Factors/ Comorbidities Number of Body 3 Systems Impaired Clinical Stable Presentation at Evaluation Goals Three Impairment lack of HEP Short Term Goal (STG patient demonstrates indep with HEP ) STG Duration 6 weeks Two Impairment thoracic spine pain Short Term Goal (STG patient reports 50% reduction in T spine pain intensity ) and frequency STG Duration 6 weeks One Impairment poor balance Short Term Goal (STG patient is able to stand single leg balance 10 sec R/L ) side STG Duration 6 weeks Assessment Summary Assessment 85 yo female with T-spine pain that was immediately reduced with improved diaphragm mobility. She is very petite in stature and tends to use her diaphragm for a posture stabilizing muscle requiring a shallow breathing pattern. She also presents with very weak CORE muscles impacting her spinal pain. She will benefit from skilled PT to address deficits and meet PT goals. Physical Therapy Plan Frequency and Duration Frequency of 1x/Week Treatment Duration of 6 treatment (weeks) Plan of Care Start 05/20/25 Date Plan of Care End 08/19/25 Date Therapeutic Interventions Therapeutic Balance Training,Gait Training,Home Exercise Program, Interventions Joint Mobilizations,Manual Therapy,Neuromuscular Re- education,Orthotic/Prosthetic Management,Patient/ Caregiver Education,Self-Care/Home Management,Taping, Therapeutic Activities,Therapeutic Exercises Modalities Cold Pack/Ice Massage,Electric Stimulation,Ultrasound Next Visit Focus/Plan Next Note Type Treatment Note Next Visit Plan UBE UE bands - needs handouts basic balance home program review breathing patterns
--- NOTE | 2025-05-26 15:49 | PT.OTN ---
Current Diagnoses Other intervertebral disc displacement, thoracic region (05/26/25) Arthrodesis status (05/26/25) Physical Therapy Treatment Note PT OP: Full Body Start: 05/21/25 07:12 Freq: Status: Active Protocol: Document 05/26/25 13:01 AB (Rec: 05/26/25 14:00 AB [id number]) Out-Patient Physical Therapy Visit Information Visit Information Visit Type Treatment Note Visit Note 2/ visits Visit [email or web address] Access Code: [email or web address] Visit Start Time 13:03 Visit Stop Time 13:47 Visit Number 2 Number of SOLE INKER Visits 1 Progress Note Due 06/20/25 Precautions Precautions Pacemaker fall risk OP-PT Subjective Patient Comments Patient Comments Patient reports she already warmed up on bike today. Patient reports discomfort is 3/10 start of session L lower thoracic. Patient comments she is fused L 4 to S1 . Therapeutic Exercises Sidelying Exercises open book Sidelying Exercise HEP Name Reps/Minutes X 5 each side with hold for 3 breaths Sitting Exercises seated hip abd with band Sitting Exercise HEP Name Resistance level 3 band Reps/Minutes one min X 1 Comments SLS less than one sec x 2 Lpre 1 sec L and R 1, 2 sec L post activation posterior expansion Sitting Exercise OUMOU handout issued, copy with stickers 1. with feet on Name stool 2. UE on table Side bilateral Reps/Minutes X 4 reps each Comments review, verbal and visual cues Manual Therapy Treatment Consent Patient gave verbal Yes consent for manual treatment Soft Tissue Mobilization thoracic paraspinals Body Location Bilateral Mobilization Type Cross-Friction,Sustained Pressure Intensity/Depth Moderate Body Position Sidelying Physical Therapy Assessment Goals Three Impairment lack of HEP Short Term Goal (STG patient demonstrates indep with HEP ) STG Duration 6 weeks Two Impairment thoracic spine pain Short Term Goal (STG patient reports 50% reduction in T spine pain intensity ) and frequency STG Duration 6 weeks One Impairment poor balance Short Term Goal (STG patient is able to stand single leg balance 10 sec R/L ) side STG Duration 6 weeks Assessment Summary Assessment Visible increase in AROM seated trunk rotation L with patient reporting less discomfort and also reports having no pain end of session. Physical Therapy Plan Frequency and Duration Frequency of 1x/Week Treatment Duration of 6 treatment (weeks) Plan of Care Start 05/20/25 Date Plan of Care End 08/19/25 Date Next Visit Focus/Plan Next Note Type Treatment Note Next Visit Plan UBE UE bands - needs handouts basic balance home program review breathing patterns
--- NOTE | 2025-06-02 11:44 | PT.OTN ---
Current Diagnoses Other intervertebral disc displacement, thoracic region (06/02/25) Arthrodesis status (06/02/25) Physical Therapy Treatment Note PT OP: Full Body Start: 05/21/25 07:12 Freq: Status: Active Protocol: Document 06/02/25 11:40 KW (Rec: 06/02/25 11:43 KW Laptop) Out-Patient Physical Therapy Visit Information Visit Information Visit Type Treatment Note Visit Note 3/6 visits Visit [email or web address] Access Code: [email or web address] Visit Start Time 11:30 Visit Stop Time 12:10 Visit Number 3 Number of NATIONAL SALES MANAGER Visits 1 Progress Note Due 06/20/25 Evaluation Information Evaluation Date 05/20/25 Precautions Precautions Pacemaker fall risk OP-PT Subjective Patient Comments Patient Comments Patient reports she already warmed up on bike today. feels some improvement Manual Therapy Treatment Consent Patient gave verbal Yes consent for manual treatment Soft Tissue Mobilization 2 Body Location dewey scap muscles thoracic paraspinals Body Location Bilateral Mobilization Type Cross-Friction,Sustained Pressure Intensity/Depth Moderate Body Position Sidelying Physical Therapy Assessment Goals Three Impairment lack of HEP Short Term Goal (STG patient demonstrates indep with HEP ) STG Duration 6 weeks Two Impairment thoracic spine pain Short Term Goal (STG patient reports 50% reduction in T spine pain intensity ) and frequency STG Duration 6 weeks One Impairment poor balance Short Term Goal (STG patient is able to stand single leg balance 10 sec R/L ) side STG Duration 6 weeks Assessment Summary Assessment much improved breathing pattern with movement found relief with soft tissue work Physical Therapy Plan Frequency and Duration Frequency of 1x/Week Treatment Duration of 6 treatment (weeks) Plan of Care Start 05/20/25 Date Plan of Care End 08/19/25 Date Next Visit Focus/Plan Next Note Type Treatment Note Next Visit Plan UBE UE bands - needs handouts basic balance home program review breathing patterns
--- NOTE | 2025-06-04 11:48 | PT.OTN ---
Current Diagnoses Other intervertebral disc displacement, thoracic region (06/04/25) Arthrodesis status (06/04/25) Physical Therapy Treatment Note PT OP: Full Body Start: 05/21/25 07:12 Freq: Status: Active Protocol: Document 06/04/25 11:41 KW (Rec: 06/04/25 11:48 KW Laptop) Out-Patient Physical Therapy Visit Information Visit Information Visit Type Treatment Note Visit Note 4/6 visits Visit [email or web address] Access Code: [email or web address] Visit Start Time 11:30 Visit Stop Time 12:10 Visit Number 3 Number of AUTOMOTIVE SALES EXECUTIVE Visits 1 Progress Note Due 06/20/25 Precautions Precautions Pacemaker fall risk OP-PT Subjective Patient Comments Patient Comments felt good after Rx last time although pain last night with tossing and turning didn't sleep well last night, busy brain OP-PT Pain Assessment Location thoracic Pain Location lower thoracic Details Pain Intensity 3 Scale Used Numeric (0 - 10) Description Aching,Dull Frequency Frequent Therapeutic Exercises Supine Exercises supine ball series Supine Exercise Name hamstring curl, LTR, bridge with coordinated breathing Sidelying Exercises open book Sidelying Exercise HEP Name Reps/Minutes X 5 each side with hold for 3 breaths Sitting Exercises seated hip abd with band Sitting Exercise HEP Name Resistance level 3 band Reps/Minutes one min X 1 Comments SLS less than one sec x 2 Lpre 1 sec L and R 1, 2 sec L post activation posterior expansion Sitting Exercise OUMOU handout issued, copy with stickers 1. with feet on Name stool 2. UE on table Side bilateral Reps/Minutes X 4 reps each Comments review, verbal and visual cues Manual Therapy Treatment Consent Patient gave verbal Yes consent for manual treatment Soft Tissue Mobilization 2 Body Location dewey scap muscles thoracic paraspinals Body Location Bilateral Mobilization Type Cross-Friction,Sustained Pressure Intensity/Depth Moderate Body Position Sidelying Joint Mobilizations rib mobs Joint sidelying rib mobs with coordinated exhale scap mobs Joint R/L in sidelying upward rotation Physical Therapy Assessment Goals Three Impairment lack of HEP Short Term Goal (STG patient demonstrates indep with HEP ) STG Duration 6 weeks Two Impairment thoracic spine pain Short Term Goal (STG patient reports 50% reduction in T spine pain intensity ) and frequency STG Duration 6 weeks One Impairment poor balance Short Term Goal (STG patient is able to stand single leg balance 10 sec R/L ) side STG Duration 6 weeks Assessment Summary Assessment much improved breathing pattern with movement found relief with soft tissue work Physical Therapy Plan Frequency and Duration Frequency of 1x/Week Treatment Duration of 6 treatment (weeks) Plan of Care Start 05/20/25 Date Plan of Care End 08/19/25 Date Next Visit Focus/Plan Next Note Type Treatment Note Next Visit Plan UBE UE bands basic balance home program review breathing patterns
--- NOTE | 2025-06-08 16:15 | PT.OTN ---
Current Diagnoses Other intervertebral disc displacement, thoracic region (06/08/25) Arthrodesis status (06/08/25) Physical Therapy Treatment Note PT OP: Full Body Start: 05/21/25 07:12 Freq: Status: Active Protocol: Document 06/08/25 14:29 AB (Rec: 06/08/25 16:15 AB [id number]) Out-Patient Physical Therapy Visit Information Visit Information Visit Type Treatment Note Visit Note 5/6 visits Visit [email or web address] Access Code: [email or web address] [ End ] Visit Start Time 15:20 Visit Stop Time 16:08 Visit Number 5 Number of MACHINE DEICER ELEMENT WINDER Visits 1 Progress Note Due 06/20/25 Precautions Precautions Pacemaker fall risk OP-PT Subjective Patient Comments Patient Comments Patient reports she had had some improvement, has been doing her exercise. Patient verbalizes she would like to continue PT until she starts Pain management. Patient rates back pain 3/10 start of session L lower thoracic area. Gym Equipment Shuttle Balance red Details NBOS CGA Reps/Duration 2 min Therapeutic Exercises Sidelying Exercises open book Sidelying Exercise HEP Name Reps/Minutes X8 each side Comments VC for breathing end ROM Sitting Exercises seated hip abd with band Sitting Exercise HEP Name Resistance leve4 band Reps/Minutes one min X 1 Comments 60 sec each LE Standing Exercises single arm High row Standing Exercise HEP Name Side bilateral Resistance level 3 band Reps/Minutes X 15 each UE Comments verbal and visual cues single arm row Standing Exercise HEP Name Side left Equipment Used level 3 band Reps/Minutes X 15 Comments verbal and visual cues Manual Therapy Treatment Soft Tissue Mobilization thoracic paraspinals Body Location Bilateral Mobilization Type Cross-Friction,Sustained Pressure Intensity/Depth Moderate Body Position Sidelying Neuro Re-Education Treatment Balance Activities hurdles Reps/Duration 10 feet 6 hurdles X 4 Comments CGA tandem stepping Reps/Duration 10 feet x 3 fwd retro, final with count back by 2 Comments CGA hands above bars foam Details step up taps 6 inch step from foam Equipment X 10 each LE Comments CGA hands above bars Physical Therapy Assessment Goals Three Impairment lack of HEP Short Term Goal (STG patient demonstrates indep with HEP ) STG Duration 6 weeks Two Impairment thoracic spine pain Short Term Goal (STG patient reports 50% reduction in T spine pain intensity ) and frequency STG Duration 6 weeks One Impairment poor balance Short Term Goal (STG patient is able to stand single leg balance 10 sec R/L ) side STG Duration 6 weeks Assessment Summary Assessment Patient reports the pain is much better, negligible end of session. Physical Therapy Plan Frequency and Duration Frequency of 1x/Week Treatment Duration of 6 treatment (weeks) Plan of Care Start 05/20/25 Date Plan of Care End 08/19/25 Date Next Visit Focus/Plan Next Note Type Progress Note Next Visit Plan ?? Possibly discharge needs updated frequency and duration to continue UBE UE bands basic balance home program review breathing patterns
--- NOTE | 2025-06-10 15:08 | PT.OPPOC ---
Physical, Occupational & Speech Therapy At [facility] Current Diagnoses Other intervertebral disc displacement, thoracic region (06/10/25) Arthrodesis status (06/10/25) Visit Care Team Role Provider Type James Beckwith MD Family Provider Physician Primary Care Provider Specialty: Family Practice Address: [address] [place] [address], [facility] [address], [place], [address] Email: [email or web address] Matteo Pucektt MD Attending Provider Physician Referring Provider Specialty: Orthopedic Surgery Address: [address] [place] [address], [place], [address] Email: Plan Of Care PT OP: Full Body Start: 05/21/25 07:12 Freq: Status: Active Protocol: Document 06/10/25 10:17 BONNIE (Rec: 06/10/25 10:35 BONNIE [id number]) Out-Patient Physical Therapy Visit Information Visit Information Visit Type Progress Note Visit Note [email or web address] Access Code: [email or web address] [ End ] Visit Start Time 10:45 Visit Stop Time 11:25 Visit Number 6 Number of PRIVATE DETECTIVE Visits 0 Progress Note Due 07/10/25 Evaluation Information Evaluation Date 05/20/25 Precautions Precautions Pacemaker fall risk Current Condition Treatment Goals Patient/Caregiver Manage pain levels in her back Goals OP-PT Subjective Patient Comments Patient Comments Patient reports her pain levels is typically a 3/10 which she describes as a cramping sensation. She reports this started this spring. Since starting PT she reports her GROC is 50%. Current home exercises are banded hip abduction, band pulldowns, biceps curls, and band rows. She uses a stationary bike as a warm up. Aggravating factors include turning over in bed, bending down, standing for an extended period of time with a slight hunch (while quilting). Therapeutic Exercises Prone Exercises Quadruped reach through Prone Exercise Name (Thoracic rotations) Side bilateral Equipment Used on table Reps/Minutes x20 each direction Comments cues for mechanics Cat cow Side bilateral Equipment Used on table Reps/Minutes x20 each direction Sitting Exercises Seated hip hinge Side bilateral Resistance 10# Equipment Used Dumbell Reps/Minutes 3x10 Comments cues for lumbopelvic mechanics Physical Therapy Assessment Goals Three Impairment lack of HEP Short Term Goal (STG patient demonstrates indep with HEP ) Met (06/10/2025) Two Impairment thoracic spine pain Short Term Goal (STG patient reports 50% reduction in T spine pain intensity ) and frequency In progress (06/10/2025) STG Duration 6 weeks One Impairment poor balance Short Term Goal (STG patient is able to stand single leg balance 10 sec R/L ) side In progress (06/10/2025) L: 2 R: 3 STG Duration 6 weeks Assessment Summary Assessment Patient presenting to PT after 5 PT sessions for L posterior thoracic pain. Patient has made improvements with function with general function and pain levels but still feels limited with bending and twisting because of her pain. Patient has not yet met her pain or balance goals and will continue to benefit from PT to address deficits and pain levels and promote independence with physical activities including bending down, lifting, and twisting with her back. Physical Therapy Plan Frequency and Duration Frequency of 2x/Week Treatment Duration of 12 treatment (weeks) Plan of Care Start 06/10/25 Date Plan of Care End 09/08/25 Date Therapeutic Interventions Therapeutic Balance Training,Gait Training,Home Exercise Program, Interventions Joint Mobilizations,Manual Therapy,Neuromuscular Re- education,Orthotic/Prosthetic Management,Patient/ Caregiver Education,Self-Care/Home Management,Taping, Therapeutic Activities,Therapeutic Exercises Modalities Cold Pack/Ice Massage,Electric Stimulation,Ultrasound Next Visit Focus/Plan Next Note Type Treatment Note Next Visit Plan Continue with plan of care, focused on spine mobility, lumbar/ thoracic extension strengthening, and lumbar/ thoracic rotation strengthening. Plan of Care Dates Plan of Care Start Date 06/10/25 Plan of Care End Date 09/08/25 Electronically Signed by: Maira Levin, PT 06/10/25 [id number] If you are in agreement with this Plan of Care, please return a signed and dated copy. I have reviewed this Plan of Care and certify that the skilled therapy services above are required to meet the patient?s needs. Physician Signature Date Printed Name and Credentials Clinical Instructor Signature Printed Name and Credentials
--- NOTE | 2025-06-21 12:15 | PT.OTN ---
Current Diagnoses Other intervertebral disc displacement, thoracic region (06/21/25) Arthrodesis status (06/21/25) Physical Therapy Treatment Note PT OP: Full Body Start: 05/21/25 07:12 Freq: Status: Active Protocol: Document 06/21/25 11:34 SP (Rec: 06/21/25 12:26 SP [id number]) Out-Patient Physical Therapy Visit Information Visit Information Visit Type Treatment Note Visit Note CHEYANNEA Thais observed tx with pt permission at end. 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 Side bilateral Equipment Used on table Reps/Minutes x20 each direction Comments cues for mechanics Sidelying Exercises open book Sidelying Exercise HEP reviewed Name Resistance AROM Reps/Minutes X10 each side Comments VC for breathing end ROM Sitting Exercises Thoracic Rotation Sitting Exercise added to HEP with HO Name Side bilateral Resistance Tb#3- arms across chest holding TB in hand away from anchor Reps/Minutes 10 reps each side Comments cued keep big toe down, painfree range Seated hip hinge Sitting Exercise HEP reviewed Name Side bilateral Resistance 10# Equipment Used Dumbell Reps/Minutes 3x10 Comments occsional cue for straight back and TA draw in, lumbopelvic mechanics seated hip abd with band Sitting Exercise HEP Name Resistance leve 4 band (Forgot Lvl 3 06/21/25) Reps/Minutes 2 min X 1 then 15 reps Standing Exercises Wall Slides Standing Exercise Added to HEP with HO Name Side bilateral Resistance AROM Reps/Minutes 5 reps x2 reps Comments cued body close facing wall, good TS ext neutral work LT fac Self-Care/Home Management Treatment Education Patient Education Body Mechanics,Home Exercise Program,Joint Protection, Pain Management,Posture,Safety Other Education cues for spinal alignment with TA and range pnfree during ther ex instruction. Physical Therapy Assessment Goals Three Impairment lack of HEP Short Term Goal (STG patient demonstrates indep with HEP ) Met (06/10/2025) Two Impairment thoracic spine pain Short Term Goal (STG patient reports 50% reduction in T spine pain intensity ) and frequency In progress (06/10/2025) STG Duration 6 weeks One Impairment poor balance Short Term Goal (STG patient is able to stand single leg balance 10 sec R/L ) side In progress (06/10/2025) L: 2 R: 3 STG Duration 6 weeks Assessment Summary Assessment Pt only occasional cues for posture during HEP review. Progressed TS extension neutral with added facing wall slides UE range comfortable for RUE and seated TS rotation gentle strengthening seated rotation, cues for set up: upright posture and hand positioning for proper form, no pain with level 3 resistance band has at home. Pt reports is more comforting than quadruped thoracic rotation. Physical Therapy Plan Frequency and Duration Frequency of 2x/Week Treatment Duration of 12 treatment (weeks) Plan of Care Start 06/10/25 Date Plan of Care End 09/08/25 Date Therapeutic Interventions Therapeutic Balance Training,Gait Training,Home Exercise Program, Interventions Joint Mobilizations,Manual Therapy,Neuromuscular Re- education,Orthotic/Prosthetic Management,Patient/ Caregiver Education,Self-Care/Home Management,Taping, Therapeutic Activities,Therapeutic Exercises Modalities Cold Pack/Ice Massage,Electric Stimulation,Ultrasound Next Visit Focus/Plan Next Note Type Treatment Note Next Visit Plan REcheck wall slides and seated resisted TS rotation. POC: Continue with plan of care, focused on spine mobility, lumbar/ thoracic extension strengthening, and lumbar/ thoracic rotation strengthening.
--- NOTE | 2025-06-24 09:45 | PT.OTN ---
Current Diagnoses Other intervertebral disc displacement, thoracic region (06/24/25) Arthrodesis status (06/24/25) Physical Therapy Treatment Note PT OP: Full Body Start: 05/21/25 07:12 Freq: Status: Active Protocol: Document 06/24/25 09:02 SP (Rec: 06/24/25 10:25 SP [id number]) Out-Patient Physical Therapy Visit Information Visit Information Visit Type Treatment Note Visit Note CHEYANNEA Thais observed tx with pt permission at end. 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 2 Progress Note Due 07/10/25 Precautions Precautions Pacemaker fall risk OP-PT Subjective Patient Comments Patient Comments Pt report thinks the resisted rotation might have been little irritation more to left than right but might be that she went to far of range vs thee Therapeutic Exercises Prone Exercises Quadruped reach through Prone Exercise Name (Thoracic rotations reviewed)- Thread needle Side bilateral Equipment Used on table Reps/Minutes x20 each direction Comments cues for mechanics and slow painfree range RUE movement Cat cow Prone Exercise Name reviewed: flex/ext, added lateral tilts tail wag Side bilateral Equipment Used on table Reps/Minutes x10 each direction Comments good form, ed slow painfree mobility Sidelying Exercises open book Sidelying Exercise HEP reviewed Name Resistance AROM Reps/Minutes X10 each side pause 3 breaths for ribcage and anterior shld stretch mobilit Comments Extra time education for proper segmental mobility - humerus, scap glide, TS Sitting Exercises Thoracic Rotation Sitting Exercise verbal review Name Side bilateral Resistance Tb#3- arms across chest holding TB in hand away from anchor Comments cued smaller range, reduce playground official band and or decreased reps. Standing Exercises Wall Slides Standing Exercise reviewed HEP Name Side bilateral Resistance AROM Reps/Minutes 5 reps x2 reps Comments cued body close facing wall, good TS ext neutral work LT fac Manual Therapy Treatment Consent Patient gave verbal Yes consent for manual treatment Soft Tissue Mobilization thoracic paraspinals Body Location L T9-12, intercostals and QL Mobilization Type Rolling,Sustained Pressure,Other Intensity/Depth Moderate Body Position R Sidelying Comments gentle STMs and sustained pressure with breath inhale/ exhale, rib recoil with breath after STMs LUE OH and LLE extended with R thoracic ribcage over pillow Self-Care/Home Management Treatment Education Patient Education Body Mechanics,Home Exercise Program,Joint Protection, Pain Management,Posture Other Education extra time spent educational cues for tolerant range with scapular engagement slight protraction and or rotational movement for segmental mobility during open book, added catcamel and thread needle with knee and opposite UE WB tolerance, painfree range during ther ex instruction today to improve decreased UT and anterior shoulder muscular compensations with noted decreased pain in R lateral ribcage. Physical Therapy Assessment Goals Two Impairment thoracic spine pain Short Term Goal (STG patient reports 50% reduction in T spine pain intensity ) and frequency In progress (06/10/2025) STG Duration 6 weeks One Impairment poor balance Short Term Goal (STG patient is able to stand single leg balance 10 sec R/L ) side In progress (06/10/2025) L: 2 R: 3 STG Duration 6 weeks Assessment Summary Assessment Pt improved quaity of R scapular mobility with extensive time utilizing verbal and tactile cues for segmental movement (Humerus in GH Jt, scap retraction glide & Ts R rotation) slow motion during open book and quadruped cat/camel & thread needle HEP review. Good feedback response to manual, verbal education about self STMs use ball on wall or theracane but ran out of time to instruct performance, will provide next tx. Physical Therapy Plan Frequency and Duration Frequency of 2x/Week Treatment Duration of 12 treatment (weeks) Plan of Care Start 06/10/25 Date Plan of Care End 09/08/25 Date Therapeutic Interventions Therapeutic Balance Training,Gait Training,Home Exercise Program, Interventions Joint Mobilizations,Manual Therapy,Neuromuscular Re- education,Orthotic/Prosthetic Management,Patient/ Caregiver Education,Self-Care/Home Management,Taping, Therapeutic Activities,Therapeutic Exercises Modalities Cold Pack/Ice Massage,Electric Stimulation,Ultrasound Next Visit Focus/Plan Next Note Type Treatment Note Next Visit Plan REcheck quadruped HEP and seated resisted TS rotation tolerance. POC: Continue with plan of care, focused on spine mobility, lumbar/ thoracic extension strengthening, and lumbar/ thoracic rotation strengthening.
--- NOTE | 2025-06-29 16:48 | PT.OTN ---
Current Diagnoses Other intervertebral disc displacement, thoracic region (06/29/25) Arthrodesis status (06/29/25) Physical Therapy Treatment Note PT OP: Full Body Start: 05/21/25 07:12 Freq: Status: Active Protocol: Document 06/29/25 14:43 NBM (Rec: 06/29/25 15:29 NBM Laptop) Out-Patient Physical Therapy Visit Information Visit Information Visit Type Treatment Note Visit Start Time 14:35 Visit Stop Time 15:20 Visit Number 9 Number of MANAGER DIVERSITY Visits 3 Progress Note Due 07/10/25 Precautions Precautions Pacemaker fall risk OP-PT Subjective Patient Comments Patient Comments Misa reports she has no pain at this moment but does with activities throughout the day, and when she first gets out of bed she has to be careful when first standing upright or else spot on L side of back catches. She's seeing Dr. Mishra 07/23 about it. Thread the needle ex seems to aggravate the back. Therapeutic Exercises Prone Exercises Quadruped reach through Prone Exercise Name (Thoracic rotations reviewed)- Thread needle Side bilateral Equipment Used on table Reps/Minutes x10 each direction Comments dc'd d/t pt c/o pain in shoulder/back; heavy cueing for form and mechanics Cat cow Prone Exercise Name reviewed: flex/ext, added lateral tilts tail wag Side bilateral Equipment Used on table Reps/Minutes x10 each direction Comments verbal review - pt did this am. Sidelying Exercises open book Sidelying Exercise HEP Name Side bilateral Resistance AROM Equipment Used pillows between LEs Reps/Minutes X10 each side pause 3 breaths for ribcage and ant shld stretch mobility Comments VC setup, form, head follows hand, stretch hold with breaths Sitting Exercises Thoracic Rotation Sitting Exercise HEP progression to standing Name Side bilateral Resistance Tb#3- arms across chest holding TB in hand away from anchor Equipment Used Tb#1 w/ arms extended Reps/Minutes x10 ea Comments monitored for pain Standing Exercises Thoracic rotation Standing Exercise HEP progression from seated Name Side bilateral Resistance Lvl 1 Tb - given for home Reps/Minutes x10 ea Comments vc TrA activation, breathwork; painfree Wall Slides Standing Exercise reviewed HEP Name Side bilateral Resistance AROM Reps/Minutes 5 reps x2 reps Comments observably improved RUE range with reps Manual Therapy Treatment Consent Patient gave verbal Yes consent for manual treatment Self-Care/Home Management Treatment Education Patient Education Body Mechanics,Home Exercise Program,Joint Protection, Pain Management,Posture Other Education -Edu for head positioning w/ chin tuck with sewing and walking (pt admits to looking down) to avoid increased force with forward head posture. -Edu to pt w/ visual aids re: TrA m. anatomy and interrelationship w/ diaphragm and pelvic floor m. w/ emphasis on posture and breathwork, and how to incorporate into current HEP and ADLs. Physical Therapy Assessment Rehab Potential Rehabilitation Good Potential Evaluation Complexity Number of Personal 1-2 Factors/ Comorbidities Number of Body 3 Systems Impaired Clinical Stable Presentation at Evaluation Goals Two Impairment thoracic spine pain Short Term Goal (STG patient reports 50% reduction in T spine pain intensity ) and frequency In progress (06/10/2025) STG Duration 6 weeks One Impairment poor balance Short Term Goal (STG patient is able to stand single leg balance 10 sec R/L ) side In progress (06/10/2025) L: 2 R: 3 STG Duration 6 weeks Assessment Summary Assessment Treatment focus on self-care and HEP review. R shoulder ROM observably improves with repetitions of wall slides. Resisted thoracic rotation progressed from seated arms crossed with Lvl 3 to standing arms extended with Lvl 1 Tb. Thread the needle ex held due to pt's complaint of pain in shoulder and back and heavy cueing for form, scapular mechanics, and core activation. Emphasis on Open book for thoracic mobility and cues for stretch hold with breath for rib expansion. Education for head position awareness with sewing work and walking, and for incorporating core activation and breathwork into HEP and ADLs. Physical Therapy Plan Frequency and Duration Frequency of 2x/Week Treatment Duration of 12 treatment (weeks) Plan of Care Start 06/10/25 Date Plan of Care End 09/08/25 Date Next Visit Focus/Plan Next Note Type Treatment Note Next Visit Plan REcheck quadruped HEP and seated resisted TS rotation tolerance. POC: Continue with plan of care, focused on spine mobility, lumbar/ thoracic extension strengthening, and lumbar/ thoracic rotation strengthening.
--- NOTE | 2025-08-16 13:47 | PT.OPDS ---
Current Diagnoses Other intervertebral disc displacement, thoracic region (06/29/25) Arthrodesis status (06/29/25) Visit Care Team Role Provider Type James Beckwith MD Family Provider Physician Primary Care Provider Specialty: Family Practice Address: [address] [place] [address], [address], [address] Email: [email or web address] Matteo Puckett MD Attending Provider Physician Referring Provider Specialty: Orthopedic Surgery Address: [address] [place] [address], [id number] Email: Visit Number Visit Number 9 Discharge Summary PT OP: Full Body Start: 05/21/25 07:12 Freq: Status: Active Protocol: Document 08/16/25 13:45 BONNIE (Rec: 08/16/25 13:47 BONNIE [id number]) Out-Patient Physical Therapy Visit Information Visit Information Visit Type Discharge Summary Physical Therapy Assessment Assessment Summary Assessment Patient has cancelled her remaining PT appointments and will be discharged at this time due to lack of follow up. Please reference her most recent progress note on for a summary of her presentation.
== END 2025-08-17 13:23 | disposition home or self-care (01) ==
LOC: PHYS 14:30
PROVIDERS: Family Provider Family Medicine; PCP Family Medicine; Referring Provider Orthopaedic Surgery; Visit Provider Orthopaedic Surgery
DX: M51.24 Other intervertebral disc displacement, thoracic region (principal); Z98.1 Arthrodesis status
CPT/HCPCS: 97110; 97112; 97140; 97162; 97535

== ENCOUNTER → 2025-07-05 12:19 | Outpatient (CLI) | payer MEDICARE, OTHER, SELFPAY ==
--- NOTE | 2025-07-05 12:21 | DI.RAD.S_ITS ---
PROCEDURE: XR FOOT LT MIN 3V INDICATIONS: Ankle swelling and pain TECHNIQUE: 3 views of the foot were acquired. COMPARISON: [facility], CR, XR FOOT LT MIN 3V, 11/05/2024, 12:09. FINDINGS: Bones: No acute fractures or dislocations. No suspicious bony lesions. Mild valgus. Mild chronic osseous irregularity at the lateral aspect of the 2nd proximal phalangeal head, suspect chronic erosion. Possible chronic erosion in the 1st metatarsal head. Small plantar calcaneal enthesophyte. Soft tissues: Soft tissue calcifications are seen projecting medial to the navicular. Additional calcifications are seen adjacent to the 1st metatarsophalangeal joint and 2nd proximal interphalangeal joint that appears similar when compared to the exam from 11/05/2024. Nonspecific soft tissue edema in the ankle and forefoot. IMPRESSION: Findings again suspicious for gout involving the 1st metatarsophalangeal and 2nd proximal interphalangeal joints, similar when compared to the exam from 11/05/2024. Calcifications medial to the navicular could also represent gouty tophi. Approved by: Polo Jovel M.D. on 07/05/2025 at 13:24
--- NOTE | 2025-07-05 12:21 | DI.RAD.S_ITS ---
PROCEDURE: XR ANKLE LT MIN 3V INDICATIONS: Ankle swelling and pain TECHNIQUE: 3 views of the ankle were acquired. COMPARISON: None. FINDINGS: Bones: No acute fractures or dislocations. Ankle mortise is normally aligned. No suspicious bony lesions. Small plantar calcaneal enthesophyte. Soft tissues: Diffuse soft tissue edema surrounding the ankle. Calcifications are seen projecting medial to the ankle on AP view that are not well seen on additional views, possibly the dystrophic or vascular versus artifactual. IMPRESSION: Diffuse soft tissue swelling. No acute osseous abnormality. If there is continued clinical concern or persistent symptoms, repeat radiographs or cross-sectional imaging (e.g. CT, MRI) may be helpful for further evaluation. Approved by: Polo Jovel M.D. on 07/05/2025 at 13:19
== END ==
PROVIDERS: Family Provider Family Medicine; PCP Family Medicine; Referring Provider Nurse Practitioner Family; Visit Provider Nurse Practitioner Family
DX: M25.572 Pain in left ankle and joints of left foot (principal); M79.672 Pain in left foot; R60.0 Localized edema
CPT/HCPCS: 73610; 73630

== ENCOUNTER → 2025-07-13 09:28 | Outpatient (CLI) | payer MEDICARE, SELFPAY ==
[2025-07-13 10:09] LABS: Uric Acid 7.6 mg/dL (2.5-6.2)
== END ==
PROVIDERS: Family Provider Family Medicine; PCP Family Medicine; Referring Provider Physician Assistant; Visit Provider Physician Assistant
DX: M10.9 Gout, unspecified (principal)
CPT/HCPCS: 36415; 84550

== ENCOUNTER → 2025-07-22 12:17 | Outpatient (CLI) | payer MEDICARE, OTHER, SELFPAY ==
--- NOTE | 2025-07-22 12:21 | DI.RAD.S_ITS ---
PROCEDURE: XR THORACIC SPINE 3V INDICATIONS: RIB PAIN TECHNIQUE: 3 views of the thoracic spine were acquired. COMPARISON: [facility], , XR CHEST 2V, 05/20/2025, 12:28. FINDINGS: Bones: There is mild to moderate levoscoliosis. No spondylolisthesis seen. Mild multilevel degenerative disc disease in the lower thoracic region. No focal lesion seen. Soft tissues: No paravertebral stripe thickening. IMPRESSION: Levoscoliosis and mild degenerative changes, no focal osseous lesion seen. Dictated by: Ernesto Paez M.D. on 07/22/2025 at 18:55 Approved by: Ernesto Paez M.D. on 07/22/2025 at 18:57
== END ==
PROVIDERS: Family Provider Family Medicine; PCP Family Medicine; Referring Provider Physical Medicine & Rehabilitation; Visit Provider Physical Medicine & Rehabilitation
DX: M51.34 Other intervertebral disc degeneration, thoracic region (principal); M47.814 Spondylosis without myelopathy or radiculopathy, thoracic region; M41.9 Scoliosis, unspecified
CPT/HCPCS: 72072

== ENCOUNTER → 2025-08-26 09:06 | Outpatient (CLI) | payer MEDICARE, OTHER, SELFPAY ==
--- NOTE | 2025-08-26 09:07 | DI.RAD.S_ITS ---
PROCEDURE: XR CHEST 2V INDICATIONS: COUGH TECHNIQUE: 2 views of the chest were acquired. COMPARISON: [facility], CR, XR CHEST 2V, 05/20/2025, 12:28. FINDINGS: Surgical changes and devices: Dual lead left-sided transvenous pacemaker. Right shoulder arthroplasty. Partially imaged lumbar fusion hardware. Lungs and pleura: Chronic mild perihilar bronchial wall thickening. No focal consolidation, effusion, or pneumothorax. Mediastinum: Mediastinal contours are normal. Heart size is normal. Small, chronic hiatal hernia. Bones and chest wall: No suspicious bony abnormalities. Soft tissues appear unremarkable. IMPRESSION: No acute cardiopulmonary disease. Findings of chronic bronchitis. Dictated by: Marilia Leal M.D. on 08/26/2025 at 12:59 Approved by: Marilia Leal M.D. on 08/26/2025 at 13:02
== END ==
PROVIDERS: PCP Family Medicine; Referring Provider Family Medicine; Visit Provider Family Medicine
DX: J42 Unspecified chronic bronchitis (principal); K44.9 Diaphragmatic hernia without obstruction or gangrene; R05.3 Chronic cough; R06.02 Shortness of breath; Z95.0 Presence of cardiac pacemaker; Z96.611 Presence of right artificial shoulder joint
CPT/HCPCS: 71046

== ENCOUNTER → 2025-08-31 08:57 | Outpatient (CLI) | payer MEDICARE, OTHER, SELFPAY ==
--- NOTE | 2025-08-31 09:01 | DI.ECHO.S_ITS ---
[facility] : : [id number] [place] : : [id number] : : Phone: [phone] Echocardiogram Report + + :Name: HERIBERTO KATZ Study Date: 08/31/2025 Height: 60 in : :Hospital ReadingLocation: Weight: 135 lb : : Gender: Female BSA: 1.6 m2 : :: 1940 Age: 85 yrs BP: 139/80 mmHg: :Reason For Study: SHORTNESS OF BREATH : :Ordering Physician: YESY, : :JAMES Performed By: James Amaral : :Referring: JAMES HAYWARD : + + Interpretation Summary The study quality was technically difficult. The ejection fraction is estimated to be 60-65%. Diastolic function could not be accurately assessed due to paced rhythm. The right ventricle is normal in size and function. No significant valvular abnormalities however limited visualization. Pulmonary artery pressures cannot be estimated because of the lack of a measurable TR jet velocity but the IVC suggests a CVP of around 8 mmHg. No significant change compared to prior study 09/27/2023. Procedure: A two-dimensional transthoracic echocardiogram with color flow and Doppler was performed. Comparison is made with the echocardiogram of 09/27/2023. The study quality was technically difficult. The patient has a paced rhythm. Left Ventricle: The left ventricle is normal in size. There is normal left ventricular wall thickness. There is no ventricular septal defect visualized. The ejection fraction is estimated to be 60-65%. There are no focal wall motion abnormalities. Diastolic function could not be accurately assessed due to paced rhythm. Right Ventricle: The right ventricle is normal in size and function. There is a pacemaker lead in the right ventricle. Atria: The left atrial size is normal. Right atrial size is normal. There is a catheter/pacemaker lead seen in the right atrium. There is no Doppler evidence for an interatrial shunt. Mitral Valve: The mitral valve leaflets appear mildly thickened. There is mild mitral annular calcification. There is no mitral regurgitation noted. Aortic Valve: The aortic valve is not well visualized. There is no aortic valve stenosis. No aortic regurgitation is present. Tricuspid Valve: The tricuspid valve leaflets are thin and pliable. There is trace tricuspid regurgitation. Pulmonary artery pressures cannot be estimated because of the lack of a measurable TR jet velocity but the IVC suggests a CVP of around 8 mmHg. Pulmonic Valve: The pulmonic valve is not well visualized. There is no pulmonic valvular regurgitation. Great Vessels: The aortic root is normal size. The dimensions of the ascending aorta are normal. The pulmonary artery is not well visualized, but is probably normal size. The IVC is of normal diameter and collapses less than 50% with a sniff. This suggests a right atrial pressure of 8 mm Hg. Pericardium/ Pleura There is no pericardial effusion. There is no pleural effusion. MMode/2D Measurements & Calculations LVIDd: 4.2 cm LVOT diam: 1.8 cm LVIDs: 3.0 cm Ao root diam: 2.5 cm FS: 28.7 % asc Aorta Diam: 2.7 cm EPSS: 0.38 cm IVSd: 0.93 cm LVPWd: 0.90 cm LV heredia. diameter/BSA (cm/m^2): 2.6 LV sys. diameter/BSA (cm/m^2): 1.9 LA A2 area: 10.5 cm2 RA long axis: 3.6 cm LA A4 area: 15.9 cm2 RA area: 8.1 cm2 LA length (vol): 4.7 cm RA vol: 15.2 ml LA vol: 30.4 ml RA : 9.6 ml/m2 LA vol index: 19.2 ml/m2 IVC diam: 1.9 cm RVD1 (basal): 3.0 cm RVD2 (mid): 1.8 cm TAPSE: 1.8 cm Doppler Measurements & Calculations Ao V2 max: 136.2 cm/sec LVOT Max Braden: 115.9 cm/sec Ao V2 mean: 99.1 cm/sec LV V1 max P.4 mmHg Ao max P.4 mmHg LV V1 VTI: 26.0 cm Ao mean P.4 mmHg EDWIN(I,D): 2.3 cm2 Ao V2 VTI: 27.9 cm EDWIN(V,D): 2.1 cm2 sev ratio: 0.93 EDWIN indexed to BSA (cm^2/m^2): 1.4 MV E max braden: 71.1 cm/sec TR max braden: 265.4 cm/sec MV A max braden: 88.5 cm/sec TR max P.2 mmHg MV E/A: 0.80 PA V2 max: 95.9 cm/sec Med Peak E' Braden: 4.5 cm/sec PA V2 mean: 71.8 cm/sec E/E' med: 15.7 PA mean P.2 mmHg Lat Peak E' Braden: 5.1 cm/sec PA pr(Accel): 37.9 mmHg E/E' lat: 14.1 E/e' average: 14.9 MV dec time: 0.21 sec SV(OT): 63.8 ml Reading Physician:05:58 PM
== END ==
PROVIDERS: PCP Family Medicine; Referring Provider Family Medicine; Visit Provider Family Medicine
DX: I34.81 Nonrheumatic mitral (valve) annulus calcification (principal); I61.9 Nontraumatic intracerebral hemorrhage, unspecified; I48.20 Chronic atrial fibrillation, unspecified; R06.02 Shortness of breath
CPT/HCPCS: 93306

== ENCOUNTER → 2025-09-07 10:56 | Outpatient (CLI) | payer MEDICARE, OTHER, SELFPAY | LOC: RESP 10:57 | PROVIDERS: PCP Family Medicine; Referring Provider Family Medicine; Visit Provider Family Medicine | DX: R05.3 Chronic cough (principal); R06.2 Wheezing; J98.8 Other specified respiratory disorders | CPT/HCPCS: 94060; 94726; 94729 ==